=== PATIENT | female | born 1955 | race Hispanic/Latino ===

== ENCOUNTER 2016-11-13 09:00 | Inpatient (IN) | payer MEDICAID ==
--- NOTE | 2016-11-13 09:24 | ED PDOC ---
Arrival/HPI - General Chief Complaint: Syncope Time Seen by Provider: 11/13/16 09:23 Historian: Patient - History of Present Illness Narrative History of Present Illness (Text): 11/13/16 09:24 A 61 year old female, whose past medical history includes hemorrhagic stroke, presents to the emergency department complaining of a syncopal episode this morning. Patient reports she remembers walking to her room and then waking up on the floor. Patient unable to recall further details. Patient is currently complaining of a headache. Patient denies any dizziness, fever, nausea, vomiting , abdominal pain, chest pain, shortness of breath or any other complaints. PMD: Cardiello Time/Duration: Other (This morning) Quality: Other Context: Home Past Medical History - Provider Review Nursing Documentation Reviewed: Yes - Infectious Disease Hx of Infectious Diseases: None - Tetanus Immunization Tetanus Immunization: Unknown - Cardiac Hx Hypertension: Yes Hx Mitral Valve Prolapse: Yes - Pulmonary Hx Pneumonia: Yes - Neurological Hx Neurological Disorder: Yes (DIPLOPIA) Hx Dizziness: Yes Other/Comment: 10-13-16 CT SCAN SHOWED A 2.5 ACUTE HEMORRHAGE WITH EDEMA . - HEENT Hx HEENT Disorder: No - Renal Hx Kidney Stones: Yes (left kidney stone at 21 years old) - Endocrine/Metabolic Hx Endocrine Disorders: No - Hematological/Oncological Hx Blood Disorders: No - Integumentary Hx Dermatological Disorder: No - Musculoskeletal/Rheumatological Hx Falls: No - Gastrointestinal Hx Gastroesophageal Reflux: Yes - Genitourinary/Gynecological Hx Genitourinary Disorders: No - Psychiatric Hx Psychophysiologic Disorder: Yes Hx Depression: Yes Hx Substance Use: No - Surgical History Hx Cholecystectomy: Yes - Anesthesia Hx Anesthesia: Yes Hx Anesthesia Reactions: No Hx Malignant Hyperthermia: No - Suicidal Assessment Feels Threatened In Home Enviroment: No Family/Social History - Physician Review Nursing Documentation Reviewed: Yes Family/Social History: No Known Family HX Smoking Status: Never Smoked Hx Alcohol Use: Yes Hx Substance Use: No Hx Substance Use Treatment: No Allergies/Home Meds Allergies/Adverse Reactions: Allergies No Known Allergies Allergy (Verified 10/13/16 21:21) Home Medications: Home Meds Medication Instructions Recorded Confirmed Mirtazapine [Remeron] 30 mg PO BID 07/10/13 10/13/16 Simvastatin 40 mg PO HS 07/10/13 10/13/16 Clonazepam [Clonazepam] 0.5 mg PO BID 10/13/16 10/13/16 Metoprolol Succinate XL [Toprol XL] 100 mg PO DAILY 10/13/16 10/13/16 oxyCODONE [oxyCODONE Immediate 10 mg PO QID 10/13/16 10/13/16 Release Tab] oxyCODONE [oxyCONTIN Extended 10 mg PO BID 10/13/16 10/13/16 Release Tab] Physical Exam - Physical Exam Narrative Physical Exam (Text): - Review of Systems Constitutional: Normal. absent: Fatigue, Weight Change, Fevers Eyes: Normal ENT: Normal Respiratory: Normal absent: SOB, Cough, Sputum Cardiovascular: (+) Syncope absent: Chest pain, Palpitations Gastrointestinal: Normal absent: Abdominal pain, Diarrhea, Nausea, Vomiting Genitourinary: Normal. absent: Dysuria, Frequency, Hematuria Musculoskeletal: Normal. absent: Arthralgias, Back Pain, Neck Pain Skin: Normal Neurological: (+) Headache absent: Focal Weakness, Dizziness Endocrine: Normal Hemo/Lymphatic: Normal Psychiatric: Normal - Physical exam Patient appears age appropriate, speaking full sentences without difficulty Head atraumatic. No nasal bone deformity or tenderness, no facial or jaw pain/ swelling. No neck midline tenderness, thoracic and lumbar spine with no midline tenderness. Pt moving b/l upper and lower extremities without difficulty, 5/5 strength, with full active and passive ROM. Distal neurovasc fully intact. Abd soft/nt/ng, no hematomas, no peritoneal signs. Neg. pelvic rock. - Systems Exam Head: Present: Atraumatic, Normocephalic Pupils: Present: PERRL Extraocular Muscles: Present: EOMI Conjunctiva: Present: Normal Mouth: Present: Moist Mucous Membranes Neck: Present: Normal Range of Motion. No: MIDLINE TENDERNESS, Paraspinal Tenderness Respiratory/Chest: Present: Clear to Auscultation, Good Air Exchange. No: Respiratory Distress, Accessory Muscle Use, Tachypneic Cardiovascular: Present: Regular Rate and Rhythm, Normal S1, S2, Peripheral Pulses Present. No: Murmurs Abdomen: Present: Normal Bowel Sounds, No: Tenderness, Peritoneal Signs, Rebound, Guarding, Distention Back: Present: Normal Inspection. No: Midline Tenderness, Paraspinal Tenderness Upper Extremity: Present: Normal Inspection. No: Cyanosis, Edema Lower Extremity: Present: Normal Inspection. No: Edema Neurological: Present: GCS=15, Speech Normal, cranial nerves II through XII fully intact with no cerebellar abnormality, neuro-sensory fully intact. No focal neurological deficits. Skin: Present: Warm, Dry, Normal Color. No: Rashes Lymphatic: Present: OX3, NI, NC Psychiatric: Present: Alert, Oriented x 3, Normal Insight, Normal Concentration Vital Signs Reviewed: Yes Vital Signs Temp Pulse Resp BP Pulse Ox 11/13/16 11:01 65 18 128/59 L 99 11/13/16 09:00 97.8 F 61 17 130/55 L 99 Temperature: Afebrile Blood Pressure: Hypotensive Pulse: Regular Respiratory Rate: Normal Appearance: Positive for: Well-Appearing, Non-Toxic, Comfortable Pain Distress: None Mental Status: Positive for: Alert and Oriented X 3 Medical Decision Making ED Course and Treatment: 11/13/16 09:24 Impression: A 61 year old female with a syncopal episode. Patient notes a headache but denies any other complaints. Physical exam unremarkable. Plan: -- Head CT -- EKG -- Labs -- IV fluids -- Reassess and disposition Progress Notes: EKG shows sinus bradycardia at [address]-segment elevations, normal intervals. Interpreted by me. 11/13/16 10:[address] Andersen, asked to obs under his service pt aware of and agrees with plan Report Date : 11/13/2016 10:27:34 PROCEDURE: CT HEAD WITHOUT CONTRAST. Dictator : Gloria Cedillo IMPRESSION: Interval complete resolving of the parasagittal posterior right parietal occipital intraparenchymal hemorrhage. Residual hypodensity seen without evidence of mass effect or midline shift. Otherwise no significant interval change compared to the previous study. No evidence of new intracranial hemorrhage or new territorial infarct. - Lab Interpretations Lab Results: 11/13/16 09:44 11/13/16 09:44 Lab Results 11/13/16 09:44: WBC 4.5, RBC 4.49, Hgb 13.8, Hct 41.0, MCV 91.3, MCH 30.7, MCHC 33.7, RDW 13.7, Plt Count 279, MPV 9.2, Gran % 65.0, Lymph % (Auto) 25.2, Dixon % (Auto) 7.8 H, Eos % (Auto) 1.6, Baso % (Auto) 0.4, Gran # 2.91, Lymph # 1.1 L , Dixon # 0.4, Eos # 0.1, Baso # 0.02, PT 10.7, INR 0.99, APTT 25.3, Sodium 141, Potassium 3.9, Chloride 105, Carbon Dioxide 27, Anion Gap 13, BUN 16, Creatinine 1.0, Est GFR ( Amer) > 60, Est GFR (Non-Af Amer) 57, Random Glucose 109, Calcium 9.5, Total Bilirubin 0.6, AST 23, ALT 7, Alkaline Phosphatase 85, Lactate Dehydrogenase 347, Total Creatine Kinase 39, Troponin I < 0.01 D, Total Protein 7.1, Albumin 3.9, Globulin 3.2, Albumin/Globulin Ratio 1.2 I have reviewed the lab results: Yes - RAD Interpretation Radiology Orders: 11/13/16 09:29 HEAD W/O CONTRAST [CT] Stat - Medication Orders Current Medication Orders: Atorvastatin Calcium (Lipitor) 20 mg PO HS PAO Clonazepam (Klonopin) 0.5 mg PO BID PAO Metoprolol Succinate (Toprol Xl) 100 mg PO DAILY PAO Oxycodone HCl (Oxycodone Immediate Release Tab) 10 mg PO QID PAO Discontinued Medications Sodium Chloride (Sodium Chloride 0.9%) 1,000 mls @ 1,000 mls/hr IV .Q1H STA Stop: 11/13/16 10:29 Last Admin: 11/13/16 09:50 Dose: 1,000 MLS/HR eMAR Start Stop Document 11/13/16 09:50 EQ (Rec: 11/13/16 09:51 EQ [id number]) Intravenous Solution Start Date 11/13/16 Start Time 09:51 - Scribe Statement The provider has reviewed the documentation as recorded by the Thu Kelly Provider Scribe Attestation: All medical record entries made by the Scribe were at my direction and personally dictated by me. I have reviewed the chart and agree that the record accurately reflects my personal performance of the history, physical exam, medical decision making, and the department course for this patient. I have also personally directed, reviewed, and agree with the discharge instructions and disposition. Disposition/Present on Arrival - Present on Arrival Any Indicators Present on Arrival: No History of DVT/PE: No History of Uncontrolled Diabetes: No Urinary Catheter: No History of Decub. Ulcer: No History Surgical Site Infection Following: None - Disposition Have Diagnosis and Disposition been Completed?: Yes Diagnosis: Syncope and collapse Disposition: HOSPITALIZED Disposition Time: 10:22 Patient Plan: Observation Patient Problems: Current Active Problems Problem Status Diagnosed Syncope and collapse Acute Condition: STABLE
[2016-11-13] MEDS ORDERED: Sodium Chloride 0.9% 1,000 ML IV STA (09:30)
[2016-11-13 09:45] LABS: ADD MANUAL DIFF? NO
[2016-11-13 09:59] LABS: BASO # 0.02 K/mm3 (0.0-2.0); BASO % 0.4 % (0.0-3.0); EOS # 0.1 (0.0-0.7); EOS % 1.6 % (1.5-5.0); GRAN # 2.91 (1.4-6.5); LYMPH # 1.1 (1.2-3.4); LYMPH % 25.2 % (22.0-35.0); MEAN CELL VOLUME 91.3 fL (80.0-105.0); MEAN CORPUSCULAR HEMOGLOBIN 30.7 pg (25.0-35.0); MEAN CORPUSCULAR HGB CONC 33.7 g/dl (31.0-37.0); MEAN PLATELET VOLUME 9.2 fl (7.0-11.0); MONO # 0.4 (0.1-0.6); MONO % 7.8 % (1.0-6.0); PLATELET COUNT 279 10^3/uL (120.0-450.0); RED CELL DISTRIBUTION WIDTH 13.7 % (11.5-14.5); WHITE BLOOD COUNT 4.5 10^3/ul (4.5-11.0)
[2016-11-13 10:08] LABS: ALB/GLOB RATIO 1.2 (1.1-1.8); ALKALINE PHOSPHATASE 85 U/L (38-133); ALT/SGPT 7 U/L (7-56); AST/SGOT 23 U/L (15-39); BILIRUBIN,TOTAL 0.6 mg/dL (0.2-1.3); BLOOD UREA NITROGEN 16 mg/dL (7-21); CALCIUM 9.5 mg/dL (8.4-10.5); CARBON DIOXIDE 27 mmol/L (21-33); CHLORIDE 105 mmol/L (98-107); GFR AFRICAN-AMERICAN > 60; GLUCOSE,RANDOM 109 mg/dL (70-110); POTASSIUM 3.9 mmol/L (3.6-5.0); SODIUM 141 mmol/L (132-148); TOTAL PROTEIN 7.1 g/dL (5.8-8.3)
[2016-11-13 10:18] LABS: TROPONIN I < 0.01 ng/mL
--- NOTE | 2016-11-13 10:28 | CT ---
PROCEDURE: CT HEAD WITHOUT CONTRAST. HISTORY: RIVERO x2 weeks COMPARISON: Irina frederick is made to the previous study dated 11/04/2016 TECHNIQUE: Axial computed tomography images were obtained through the head/brain without intravenous contrast. Radiation dose: Total exam DLP = 757.14 mGy-cm. FINDINGS: HEMORRHAGE: Interval further resolving of the previously seen right parieto-occipital intraparenchymal hemorrhage. No evidence of new intracranial hemorrhage. BRAIN: Residual hypodensity at the site of previously seen intraparenchymal hemorrhage in the parasagittal right posterior parietal occipital lobe. No evidence of mass effect or midline shift. No atrophy or chronic microvascular ischemic changes. VENTRICLES: Unremarkable. No hydrocephalus. CALVARIUM: Unremarkable. PARANASAL SINUSES: Unremarkable as visualized. No significant inflammatory changes. MASTOID AIR CELLS: Unremarkable as visualized. No inflammatory changes. OTHER FINDINGS: None. IMPRESSION: Interval complete resolving of the parasagittal posterior right parietal occipital intraparenchymal hemorrhage. Residual hypodensity seen without evidence of mass effect or midline shift. Otherwise no significant interval change compared to the previous study. No evidence of new intracranial hemorrhage or new territorial infarct.
[2016-11-13 10:39] LABS: INR 0.99 (0.93-1.08); PARTIAL THROMBOPLASTIN TIME 25.3 Seconds (23.7-30.8)
--- NOTE | 2016-11-13 12:20 | HP ---
HISTORY OF PRESENT ILLNESS: A 61-year-old white female with a recent history of BASKET TURNER bleed of unknown origin. The patient had done well. She was discharged home. She had been doing physical therapy a nd had seen Dr. Sullivan of neurology as an outpatient. She recently had a CT which did not show any c hange in her recent bleed. The patient was getting ready to go to an appointment in the morning when she had a full syncopal episode at home without any aura. The patient denied any loss of urine, ora l cuts or lesions, biting of tongue or lips and states that the timeframe was within 5 minutes of reg aining consciousness. The patient had no history of head trauma in the past. She had been sleeping normally, had been eating normally the day before. She denies any fever, chills, nausea, vomiting, h eadache, etc. The patient has no history of seizure disorder in the past. The patient came to the E mergency Room after having a syncopal episode. REVIEW OF SYSTEMS: A 12-point review of systems is unremarkable for headache, fever, chills, nausea, vomiting. It is positive for syncope and anxiety. The patient denies any chest pain, shortness of breath, palpitations. Denies any cough, fever, chills, nausea, vomiting or diarrhea. Denies any kymberly rtness of breath. The patient has no history of DVT or PE in the past. The patient is a nonsmoker. No IV drug abuse. She does have a history of prescription pain medication for many, many years and also anxiety medication. FAMILY HISTORY: Unremarkable. PAST SURGICAL HISTORY: Unremarkable, noncontributory. PAST MEDICAL HISTORY: The patient does have a history of severe headaches in the past. PHYSICAL EXAMINATION: GENERAL: Well-developed, well-nourished white female in no apparent distress the following morning _ ____ in the ER. HEENT: Within normal limits. HEART: Regular sinus rhythm. No S3 or murmurs. CHEST: Clear to auscultation and percussion. ABDOMEN: Benign. EXTREMITIES: Without cyanosis, clubbing or edema. NEUROLOGIC: Grossly intact. The patient still has a mild loss of vision in the right eye, has some loss of peripheral vision, which is unchanged from her previous examination when she had her BASKET TURNER blee d. MEDICATIONS: Include clonazepam, simvastatin, metoprolol and oxycodone immediate release. ALLERGIES: The patient has no known allergies. IMPRESSION: A 61-year-old white female with recent history of central nervous system bleed, presenti with a syncopal episode. Rule out seizure, rule out dehydration, rule out electrolyte imbalance, rule out change in her bleed, rule out new onset of seizure. Jerald Andersen MD cc: [id number] TT: 11/13/2016 12:20:02 mn
[2016-11-13] MEDS ORDERED: Gadodiamide 287 MG/ML VIAL (15ML) IV ONE (12:51)
--- NOTE | 2016-11-13 12:59 | CARD ---
APPROVED REPORT EKG Measurement Heart [id number] <Conclusion> Sinus bradycardia with sinus arrhythmia Otherwise normal ECG
[2016-11-13] MEDS: oxyCODONE 10 mg Immediate Release Tab PO SCH ×3 (13:12→21:15)
--- NOTE | 2016-11-13 13:53 | MRI ---
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 TECHNIQUE: Multiplanar, multisequence MR images of the brain were obtained with and without intravenous contrast enhancement. FINDINGS: HEMORRHAGE: No MRI evidence of acute intraparenchymal hemorrhage. There is heterogeneous T1 and T2 hyperintense signal focus seen at the parasagittal right posterior parietal occipital lobe measures 3.2 in the longitudinal diameter 2.8 in the transverse diameter and 2.5 centimeter in the AP diameter suggestive of old intraparenchymal hemorrhage. There are linear hypointense T2 GRE images in this focus consistent with blood product deposition. DWI: No evidence of an acute or early subacute infarction. BRAIN PARENCHYMA: Interval resolving of the previously seen edema surrounding the intraparenchymal hemorrhage at the right posterior parietal occipital lobe since the previous exam. No atrophy or chronic microvascular ischemic changes. ENHANCEMENT: No abnormal intracranial enhancement. VENTRICLES: Unremarkable. No hydrocephalus. CRANIUM: Unremarkable. ORBITS: Grossly unremarkable. PARANASAL SINUSES/MASTOIDS: Clear VASCULAR SYSTEM: Skull base flow voids intact. OTHER FINDINGS: None . IMPRESSION: No MRI evidence of acute intracranial hemorrhage or acute pathology in the brain. Well defined focus of hyperintense heterogeneous T1 and T2 signal seen at the site of previously depicted intraparenchymal hemorrhage at the right posterior parietal occipital lobe suggestive of encephalomalacia. Linear hyperintense T2 GRE images seen in this focal suggestive of blood product deposition. Interval resolving of the previously seen surrounding edema at the posterior right occipital lobe. No evidence of significant mass effect or midline shift. The assessment for abnormal enhancement at the focus of abnormal signal on the right posterior parietal occipital lobe is limited due to high T1 signal in the precontrast images. Otherwise no evidence of enhancing mass lesion in the brain.
[2016-11-13 16:21] VITALS: BMI 22.7
[2016-11-13] MEDS ORDERED: Pneumococcal 23-Valent Vaccine IM ONE (16:21)
[2016-11-13] MEDS ORDERED: Influenza Vaccine 45 MCG/0.5 ml IM ONE (16:21)
--- NOTE | 2016-11-13 19:16 | CON ---
DATE: 11/13/2016 HISTORY OF PRESENT ILLNESS: This is a 61-year-old white female with past medical history of hyperten abhay and has a history of central nervous system bleed and the patient came to the hospital with the complaint of passing out spell. The patient has been doing physical therapy and had a syncopal episo de at home without any vomiting. No tongue bite, no urinary incontinence. Came to the hospital for further checkup. REVIEW OF SYSTEMS: A 10-point review of systems was negative except as noted above. PAST MEDICAL HISTORY: Stroke recently. PHYSICAL EXAMINATION: HEENT: Normocephalic, atraumatic. NECK: Supple. NEUROLOGIC: Alert, awake, and oriented x 3. No aphasia. Cranial nerves II through XII were tested. Pupils reactive. EOMs intact. Visual angeles full. No facial asymmetry. Tongue midline. Motor e xamination: Moves all the extremities equally. Tone normal. Deep tendon reflexes 1+. Both plantar s are downgoing. Sensory appears intact. Cerebellar gait deferred. IMPRESSION: Syncope, less likely seizure. No tongue bite. PLAN: We will do EEG and carotid Doppler. MRI did not show any new acute lesions. Kimo Sullivan MD cc: [id number] TT: 11/13/2016 19:16:00 Confirmation # [id number] Dictation # [id number] [place]
--- NOTE | 2016-11-13 20:03 | US ---
PROCEDURE: Bilateral carotid artery duplex ultrasound HISTORY: Carotid stenosis PHYSICIAN(S): Hever Velázquez MD. TECHNIQUE: Duplex sonography and color-flow Doppler were used to evaluate the carotid bifurcations and limited segments of the vertebral arteries bilaterally. FINDINGS: There is mild smooth heterogeneous plaque noted at the carotid bifurcations bilaterally. The peak systolic velocity in the proximal right internal carotid artery is 117 cm/sec. This corresponds to a 40-59 percent proximal right ICA stenosis. Normal systolic velocities are noted in the proximal right external carotid artery. There is antegrade flow in the right vertebral artery. The peak systolic velocity in the proximal left internal carotid artery is 119 cm/sec. This corresponds to a 40-59 percent proximal left ICA stenosis. Normal systolic velocities are noted in the proximal left external carotid artery. There is antegrade flow in the left vertebral artery. IMPRESSION: 1. Bilateral 40-59 percent proximal ICA stenoses. 2. Antegrade flow in both vertebral arteries.
[2016-11-13] MEDS ORDERED: Metoprolol Succinate 100 mg XL Tab PO SCH (22:00)
[2016-11-14] MEDS: Pantoprazole 40 mg EC Tab PO SCH (06:25)
[2016-11-14] MEDS: oxyCODONE 10 mg Immediate Release Tab PO PRN ×3 (08:36→22:28)
[2016-11-14] MEDS ORDERED: Metoprolol Succinate 100 mg XL Tab PO SCH (10:00)
--- NOTE | 2016-11-14 11:05 | PN ---
DATE: 11/14/2016 A 61-year-old white female admitted to the hospital after a syncopal episode. The patient was seen i n consultation by Dr. Sullivan. The patient had an MRI and CT of the head which showed no change in th e recent intracranial bleed. The patient had a carotid Doppler done which showed about less than 50% blockage bilaterally. The patient also was slightly bradycardic last night with a heart rate into t he 40s. She is on metoprolol which will be stopped and she will be switched to Coreg. She will also have a Holter monitor placed. She is afebrile. Vital signs are stable. She had no further episode s and no history of seizure disorder. The patient will an EEG today. Physical examination is unchanged. The patient continues to have a right eye visual deficit from her recent intracranial bleed. IMPRESSION: Syncopal episode. Rule out arrhythmia. Rule out seizure. 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 Jerald Andersen MD cc: [id number] TT: 11/14/2016 11:04:26 Confirmation # [id number] Dictation # [id number] herbert
--- NOTE | 2016-11-14 17:49 | PN ---
DATE: 11/14/2016 CHIEF COMPLAINT: Follow up status post syncopal event. SUBJECTIVE: The patient seen and examined at bedside. The patient is doing well. No further syncop al events. She had an episode of bradycardia overnight in the 40s of her heart rate. Blood pressure medications have been adjusted by cardiology. Her MRI of the brain showed no evidence of any acute intracranial pathology. She just has a right posterior parietooccipital lobe encephalomalacia from h er prior intracranial hemorrhage which was in 09/2016. No seizure-like episodes. EEG shows mild hunter ateral cerebral dysfunction which is consistent with her MRI. No evidence of any epileptiform activi ty. She is on Keppra 500 mg p.o. b.i.d. for seizure prophylaxis. No acute events overnight. She is on Klonopin for anxiety. PAST MEDICAL HISTORY: History of mitral valve prolapse, chronic back pain, peptic ulcer disease, rec ent right posterior parietooccipital lobe hemorrhage in 09/2016 from uncontrolled hypertension. REVIEW OF SYSTEMS: A 14-point review of systems is negative except the HPI. PAST SURGICAL HISTORY: Cholecystectomy. SOCIAL HISTORY: No illicit drug use or smoking or ETOH abuse, was a former smoker. ALLERGIES: No known drug allergies. CURRENT MEDICATIONS: Reviewed via nurse's reconciliation sheet. PHYSICAL EXAMINATION: VITAL SIGNS: Temperature of 97.4, pulse rate of 52, blood pressure 117/65, respiratory rate of 19, o xygen saturation 95% via room air. GENERAL: The patient is sitting up in bed in no acute distress. HEENT: Atraumatic, normocephalic. PERRLA. Extraocular muscles intact. NECK: Supple, no JVD, no adenopathy noted. LUNGS: Clear to auscultation. No adventitious sounds. HEART: S1, S2. Normal rate and rhythm. No murmurs, rubs, or gallops. ABDOMEN: Soft, nontender, nondistended. Bowel sounds are present. EXTREMITIES: No clubbing, no cyanosis. Peripheral pulses 2+ felt bilaterally. NEUROLOGIC: The patient is alert, oriented to person, place, month and year. Speech is fluent witho ut any errors. Cranial nerves II-XII are intact. Has some right eye limited movement due to double vision which is residual of her hemorrhage. MOTOR: Normal tone, normal bulk of muscle. No pronator drift seen. Strength is 5/5 in both upper a nd lower extremities. SENSORY: Light touch, pinprick, proprioception, vibration intact. DTRs 2+ throughout. COORDINATION: [id number], intact. GAIT: Deferred for now. LABORATORIES: Sodium is 141, potassium 2.9, chloride 105, carbon dioxide 27, BUN of 16, creatinine 1 , random glucose of 109. ASSESSMENT AND PLAN: This is a 61-year-old woman with past medical history of mitral valve prolapse, chronic back pain, on chronic opiates; peptic ulcer disease, history of right parietooccipital hemor rhage and some left medial parietal lobe and posterior left frontal lobe hemorrhage which was seen on the MRI which is old in 09/2016 secondary to uncontrolled hypertension at that time, who presented wi th a syncopal event. Her syncopal event is less likely a seizure. EEG did not show any epileptiform activity, just mild bilateral cerebral dysfunction. She was bradycardiac which could have caused po ssible transient vasovagal component which led to syncopal event superimposed on underlying anxiety d isorder. At this time, recommend: 1. Keep her blood pressure between 120-130 mmHg. 2. Monitor her heart rate since she becomes bradycardiac. Adjust her blood pressure medications. 3. Continue with Keppra 500 mg p.o. b.i.d. 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 4. Avoid overuse of opiates which can lower seizure threshold and continue with current present medi r[place] management. No further neurological workup needed up at this time. We will sign off. Kp Sullivan MD cc: [phone] TT: 11/14/2016 17:48:36 Confirmation # [id number] Dictation # [id number] tn
[2016-11-15] MEDS: Pantoprazole 40 mg EC Tab PO SCH (05:51)
[2016-11-15] MEDS: oxyCODONE 10 mg Immediate Release Tab PO PRN ×3 (05:51→20:55)
--- NOTE | 2016-11-15 09:21 | PN ---
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 Admitted to the hospital with a syncopal episode. EEG showed bilateral slowing, but no evidence of seizure disorder. The patient has been bradycardic. We have switched from metoprolo l to Coreg to decrease the chance of bradycardia. She still has some bradycardia in the middle of th e night. She is on a Holter monitor. She is afebrile. Vital signs are stable. REVIEW OF SYSTEMS: A 12-point is unremarkable. The patient will be discharged after her Holter on tapering doses of beta nae and low dose of opi ates. Jerald Andersen MD cc: [id number] TT: 11/15/2016 09:21:08 Confirmation # [id number] Dictation # [id number] en
--- NOTE | 2016-11-15 14:52 | CON ---
DATE: 11/15/2016 The patient in room 362, bed 2. REASON FOR CONSULTATION: Bradycardia, sinus pause, history of syncope. HISTORY OF PRESENT ILLNESS: A 61-year-old female who was admitted in 09/2016 with a history of centra l nervous system bleed. The patient since then has been doing well. Denies any chest pain, shortnes s of breath, or palpitation. The patient on the day of admission had again a syncopal episode withou t any aura. There is no history of incontinence of urine or tongue bite. The patient found herself on the floor. There is no history of chest pain, no palpitations associated with this episode. The patient in the past was told to have mitral valve prolapse and she used to get palpitations, so she h as been put on Lopressor in the past and recently she was also given amlodipine for keeping the blood pressure in the normal range. The patient on telemetry found to have bradycardia. The patient was on Lopressor and amlodipine and the patient also has sinus pause of 2.3 seconds. The patient denies any symptoms at present. There is no history of chest pain or shortness of breath or palpitation. T he patient had echocardiogram on 10/15/2016, which showed left ventricle normal size, normal left vent ricular wall thickness, normal left ventricle systolic function. Mitral valve did not show any prola pse. Trace mitral regurgitation was seen and trace tricuspid regurgitation was seen. LV ejection fr action was close to 74%. The patient also known to have a headache for many years and also known to have sciatica and back pain for which she takes OxyContin. 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 The patient also h ad cholecystectomy and surgery for torn meniscus. PERSONAL HISTORY: Denies smoking, denies drinking. ALLERGIES: The patient does not have any allergies. MEDICATIONS: At home, patient was on Toprol-XL 100 mg daily, Norvasc 10 mg daily and she also takes OxyContin for pain. FAMILY HISTORY: Mother and father both had coronary artery disease. REVIEW OF SYSTEMS: All the systems were reviewed, positives mentioned in the history, others were ne gative. PHYSICAL EXAMINATION: VITAL SIGNS: Blood pressure 120/80, pulse 66, temperature 97.6. HEENT: Head is normocephalic. Eyes: Pupils normal. Conjunctivae normal. Nose and throat normal. NECK: JVP low. Carotids equal. THORAX: AP diameter normal. LUNGS: Clear. CARDIOVASCULAR: S1, S2. ABDOMEN: Soft, nontender, no organomegaly. Bowel sounds normal. EXTREMITIES: No clubbing, no cyanosis. LABORATORY DATA: Shows WBC 4.5, hemoglobin 13.8, hematocrit 41.0, platelet 279. Sodium 141, potassi um 3.9, BUN 16, creatinine 1.0. Random glucose 109. AST normal, ALT normal. Troponin less than 0.01 , total protein 7.1, albumin 3.9. EKG showed sinus bradycardia at 56 per minute and telemetry monito r showed heart rate going down to 34 and there was also a pause of 2.3 seconds. Carotid ultrasound sh owed 40%-59% bilateral proximal internal carotid stenosis. DIAGNOSES: Syncope, probably related to bradycardia, which is probably related to beta nae thera py, Lopressor, recent central nervous system bleed, history of palpitations, history of mitral valve prolapse, history of headache, history of back pain and sciatica. PLAN: The patient's TSH previously was normal. Now, the Lopressor has been stopped and patient has been started on Coreg 6.25 b.i.d., amlodipine 10 mg p.o. daily, atorvastatin 20 mg p.o. daily, Keppra 500 b.i.d., Protonix 40 daily, oxycodone p.r.n. for pain. Today is the first day of starting of Cor eg, so we will monitor the patient and monitor for any arrhythmia including bradycardia and we will a djust the dose if needed. When patient goes home, we will also do a Holter monitor as an outpatient to monitor the heart rate. In a few months, when patient is stabilized, will suggest to do IV Lexisc an stress test for a complete workup of cardiac point of view to rule out any ischemia or coronary ar dillan disease. In the meantime, the patient does not have any chest pain, so we will continue medical therapy and we will follow with you. Monisha Wilson MD cc: [id number] TT: 11/15/2016 14:51:41 Confirmation # [id number] Dictation # [id number] rn
[2016-11-15 18:52] VITALS: RESP 20
[2016-11-16] MEDS: Pantoprazole 40 mg EC Tab PO SCH (05:44)
[2016-11-16] MEDS: oxyCODONE 10 mg Immediate Release Tab PO PRN ×2 (06:09→11:18)
[2016-11-16 08:02] VITALS: O2SAT 96
--- NOTE | 2016-11-16 13:02 | DS ---
A 61-year-old white female seen today at [facility] being discharged today on 11/15/16. 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 The patient was admitted to the hospital after a full syncopal episode. The patient was seen in consultation by jonathan Boyce ad an EEG done. There was no evidence of seizures. There was bilateral slowing. She also was found to be bradycardic in the hospital with heart rates down in the 40s. She was switched from metoprolo l to Coreg and heart rate is now up to 56, blood pressure is 118/70. She has a long history of hyper tension and chronic headaches and pain. She is on chronic opiate medication, but we are trying to ta per these because of the risk of increasing her seizure activity. The patient had a Holter monitor w hich is not read yet. She also was seen in consultation by Dr. Wilson for bradycardia. 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 The patient will be discharged home in i mproved condition. FINAL DISCHARGE DIAGNOSES: Syncope. Bradyarrhythmia, history of central nervous system bleed and ch ronic headaches. Jerald Andersen MD cc: [id number] TT: 11/16/2016 13:01:28 wa
--- NOTE | 2016-11-16 13:54 | PN ---
DATE: 11/16/2016 The patient is in room 360, bed 2. REASON FOR CONSULTATION: Bradycardia, sinus pauses, history of syncope. HISTORY OF PRESENT ILLNESS: The patient is a 61-year-old female who was admitted on in 09/2016 with h istory of central nervous system bleed and patient was told a long time ago that she has mitral valve prolapse and she was getting palpitations, so she was on long-acting Lopressor 100 mg a day. The pa allant now admitted with a syncopal episode and was found to have sinus bradycardia with sinus pause o f 2.3 seconds. The patient denies any chest pain, palpitation, nausea, vomiting associated with this episode. The patient's Lopressor was stopped and patient was started on Coreg 6.25 b.i.d. yesterday . The patient's heart rate this morning for a short time went into 39. The patient was asymptomatic . PHYSICAL EXAMINATION: VITAL SIGNS: Blood pressure 144/74, earlier blood pressure was 118/70, respirations 20, pulse 61, te mperature 97.8. HEAD: Normocephalic. EYES: Pupils normal. Conjunctivae normal. NOSE AND THROAT: Normal. NECK: JVP low. Carotid equal. THORAX: AP diameter normal. LUNGS: Clear. CARDIOVASCULAR: S1, S2. ABDOMEN: Soft, no tenderness, no organomegaly. EXTREMITIES: No clubbing, no cyanosis. LABORATORY DATA: Done on 11/13 and they were reported in our consult of 11/15/2016. The patient had an echo on 10/05/2016, which did not show any mitral valve prolapse. LV ejection frac tion was 74%, trace mitral regurg and trace tricuspid regurg was seen. The patient known to have a headache and sciatica and back pain, for which she takes OxyContin. DIAGNOSES: Syncope, probably related to bradycardia, which is probably related to beta nae thera py with Lopressor and recent central nervous system bleed, history of palpitation, history of mitral valve prolapse in the past, history of headache, back pain and sciatica. PLAN: We are going to stop Coreg. The patient was asymptomatic with heart rate of 39 this morning, a short episode, and patient insists on going home today, so we will stop the Coreg and we will lorena nue amlodipine 10 mg daily, atorvastatin 20 mg daily, Keppra 500 b.i.d., Protonix 40 daily, oxycodone p.r.n. for pain and we will put a Holter monitor tomorrow as outpatient and monitor her heart rate a nd we will make further recommendations as per basis of any finding on the Holter monitor and we will follow with you. Case discussed with the primary physician, Dr. Andersen, and had a detailed discu ssion with the patient. She understands and she will follow with the Holter as outpatient. Monisha Wilson MD cc: [id number] TT: 11/16/2016 13:53:58 Confirmation # [id number] Dictation # [id number] en
[2016-11-16] MEDS ORDERED: Influenza Vaccine 45 MCG/0.5 ml IM ONE (14:49)
[2016-11-16 16:29] VITALS: BP 135/79; PULSE 76; TEMP 97.6
--- NOTE | 2016-11-17 08:01 | EEG ---
DATE: 11/13/2016 HISTORY: Syncope. PAST MEDICAL HISTORY: Headache, head trauma and bleed. MEDICATIONS: Clonazepam, simvastatin, metoprolol, oxycodone. DESCRIPTION: Background activity of this tracing was composed of 9-10 cycles per second alpha-like a ctivity, small amount of beta activity 16-20 cycles per second was noted in the tracing, and theta ac tivity of 5-7 cycles per second was noted in the tracing. Drowsiness was composed of mixed beta and theta activity. Photic stimulation does not change the record. No paroxysmal activity was seen in t he record. IMPRESSION: Normal awake, drowsy electroencephalography. Kimo Sullivan MD cc: [id number] TT: 11/16/2016 16:25:02 Confirmation # [id number] Dictation # [id number] rosa maria
== END 2016-11-16 16:50 | disposition home or self-care (01) | DRG 138 ==
LOC: ED 09:00 → ERH 10:23 → 3RNO 11:22 → OBSVTOIN 11-15 14:43
PROVIDERS: ADMIT Internal Medicine; ATTEND Internal Medicine
PROC: 3E0234Z Introduction of Serum, Toxoid and Vaccine into Muscle, Percutaneous Approach (ICD-10-PCS; principal; 2016-11-16)
DX: R00.1 Bradycardia, unspecified (principal); R56.9 Unspecified convulsions; I08.1 Rheumatic disorders of both mitral and tricuspid valves; T44.7X5A Adverse effect of beta-adrenoreceptor antagonists, initial encounter; R55 Syncope and collapse; I10 Essential (primary) hypertension; F41.9 Anxiety disorder, unspecified; K21.9 Gastro-esophageal reflux disease without esophagitis; M54.30 Sciatica, unspecified side; Z79.891 Long term (current) use of opiate analgesic; Z79.899 Other long term (current) drug therapy; Z82.49 Family history of ischemic heart disease and other diseases of the circulatory system; Z87.01 Personal history of pneumonia (recurrent); Z87.11 Personal history of peptic ulcer disease; Z87.442 Personal history of urinary calculi; Z90.49 Acquired absence of other specified parts of digestive tract; R40.2412 Glasgow coma scale score 13-15, at arrival to emergency department; R51 Headache; I69.298 Other sequelae of other nontraumatic intracranial hemorrhage; H53.9 Unspecified visual disturbance; I34.1 Nonrheumatic mitral (valve) prolapse; Z23 Encounter for immunization

== ENCOUNTER 2017-01-16 15:42 | Emergency (ER) | payer MEDICAID ==
[2017-01-16 15:55] VITALS: BMI 23.2
[2017-01-16] MEDS ORDERED: Sodium Chloride 0.9% 1,000 ML IV STA (16:18)
[2017-01-16] MEDS ORDERED: Oxycodone/Acetaminophen 5/325 mg Tab PO STA (16:18)
[2017-01-16 16:35] VITALS: BP 138/79
--- NOTE | 2017-01-16 17:12 | ED PDOC ---
Arrival/HPI - General Chief Complaint: Headache Time Seen by Provider: 01/16/17 15:51 Historian: Patient - History of Present Illness Narrative History of Present Illness (Text): 01/16/17 17:10 This is a 61yo female with PMhx of hypertension, migraine headache and subdural bleed, present with complaint of severe headache associated with nausea, vomiting and photophobia. She notes history of headache everyday of her life. states this is different because she had an "undescribable sensation on her left sided neck" earlier today. Notes malaise for the past one week. States she is currently on unknown abx for UTI. Luis Fernando dysuria, frequency, hematuria, chest pain, SOB, nuchal ridgity, fever, chills, abdominal pain, focal weakness, dizziness, any other complaint. Past Medical History - Provider Review Nursing Documentation Reviewed: Yes - Infectious Disease Hx of Infectious Diseases: None - Tetanus Immunization Tetanus Immunization: Unknown - Cardiac Hx Cardiac Disorders: Yes (MVP) Hx Hypertension: Yes - Pulmonary Hx Respiratory Disorders: Yes (SMOKES CIGARETTES 10/D H/O) Hx Pneumonia: Yes (HAD DOUBLE PNEUMONIA H/O) - Neurological Hx Neurological Disorder: Yes (DIPLOPIA) Hx Dizziness: Yes (SYNCOPE) Other/Comment: 10-13-16 CT SCAN SHOWED A 2.5 ACUTE HEMORRHAGE WITH EDEMA . - HEENT Hx HEENT Disorder: Yes (WEARS RX GLASSES,DIPLOPIA) - Renal Hx Renal Disorder: Yes Hx Kidney Stones: Yes (left kidney stone at 21 years old.PASSES STONES) Hx Pyelonephritis: Yes - Endocrine/Metabolic Hx Endocrine Disorders: No - Hematological/Oncological Hx Blood Disorders: No - Integumentary Hx Dermatological Disorder: No - Musculoskeletal/Rheumatological Hx Musculoskeletal Disorders: Yes (RIGHT TORN MENISCUS) Hx Falls: No - Gastrointestinal Hx Gastrointestinal Disorders: Yes Hx Gall Bladder Disease: Yes (CHOLECYSTECTOMY) Hx Gastroesophageal Reflux: Yes - Genitourinary/Gynecological Hx Genitourinary Disorders: No - Psychiatric Hx Psychophysiologic Disorder: Yes Hx Depression: Yes Hx Substance Use: No - Surgical History Hx Cholecystectomy: Yes - Anesthesia Hx Anesthesia: Yes Hx Anesthesia Reactions: No Hx Malignant Hyperthermia: No - Suicidal Assessment Feels Threatened In Home Enviroment: No Family/Social History - Physician Review Nursing Documentation Reviewed: Yes Family/Social History: Unknown Family HX Smoking Status: Former Smoker Hx Alcohol Use: No Hx Substance Use: No Hx Substance Use Treatment: No Allergies/Home Meds Allergies/Adverse Reactions: Allergies No Known Allergies Allergy (Verified 01/16/17 15:55) Home Medications: Home Meds Medication Instructions Recorded Confirmed Mirtazapine [Remeron] 30 mg PO HS 07/10/13 11/13/16 Metoprolol Succinate XL [Toprol XL] 100 mg PO HS 10/13/16 11/13/16 oxyCODONE [oxyCODONE Immediate 10 mg PO QID 10/13/16 11/13/16 Release Tab] Amlodipine Bes/Olmesartan Med 10 mg PO DAILY 11/13/16 11/13/16 [Amlodipine-Olmesartan 5-20 mg] Levetiracetam [Roweepra] 500 mg PO BID 11/13/16 11/13/16 Pantoprazole Sodium [Protonix] 40 mg PO DAILY 11/13/16 11/13/16 Review of Systems - Physician Review All systems were reviewed & negative as marked: Yes - Review of Systems Constitutional: Normal Eyes: Photophobia ENT: Normal Respiratory: Normal Cardiovascular: Normal Gastrointestinal: Nausea, Vomiting. absent: Abdominal Pain, Constipation, Diarrhea, Hematochezia, Hematemesis Genitourinary Female: Normal Musculoskeletal: Normal Skin: Normal Neurological: Headache. absent: Dizziness, Focal Weakness Endocrine: Normal Hemo/Lymphatic: Normal Psychiatric: Normal Physical Exam Vital Signs Reviewed: Yes Vital Signs Temp Pulse Resp BP Pulse Ox 01/16/17 20:10 80 16 98 01/16/17 20:00 98.0 F 80 16 98 01/16/17 16:35 75 18 138/79 97 01/16/17 15:55 16 01/16/17 15:49 79 18 142/81 97 Temperature: Afebrile Blood Pressure: Normal Pulse: Regular Respiratory Rate: Normal Appearance: Positive for: Well-Appearing, Non-Toxic, Comfortable Pain Distress: None Mental Status: Positive for: Alert and Oriented X 3 - Systems Exam Head: Present: Atraumatic, Normocephalic Pupils: Present: PERRL Extroacular Muscles: Present: EOMI Conjunctiva: Present: Normal Mouth: Present: Moist Mucous Membranes Neck: Present: Normal Range of Motion Respiratory/Chest: Present: Clear to Auscultation, Good Air Exchange. No: Respiratory Distress, Accessory Muscle Use Cardiovascular: Present: Regular Rate and Rhythm, Normal S1, S2. No: Murmurs Abdomen: Present: Normal Bowel Sounds. No: Tenderness, Distention, Peritoneal Signs Back: Present: Normal Inspection Upper Extremity: Present: Normal Inspection. No: Cyanosis, Edema Lower Extremity: Present: Normal Inspection. No: Edema Neurological: Present: GCS=15, CN II-XII Intact, Speech Normal, Motor Func Grossly Intact, Normal Sensory Function, Normal Cerebellar Funct, Norm Deep Tendon Reflexes, Gait Normal, Memory Normal Skin: Present: Warm, Dry, Normal Color. No: Rashes Psychiatric: Present: Alert, Oriented x 3, Normal Insight, Normal Concentration Medical Decision Making ED Course and Treatment: 01/17/17 00:27 Pt was neurological intact in ED. she stated her headache improved in ED with medication. Lab was unremarkable. 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 Head CT was negative for any acute derangement. Result was DW the pt. she noted that she was given Fioricet by her Neurologist for the headache and feel is not working. She was advised to f/u with her Neurologist and DC possible change in her medication. - Lab Interpretations Lab Results: 01/16/17 17:19 01/16/17 17:19 Lab Results 01/16/17 20:16: Urine Color Yellow, Urine Appearance Slight-cloudy, Urine pH 7.0 , Ur Specific [place] 1.010, Urine Protein Negative, Urine Glucose (UA) Negative , Urine Ketones Negative, Urine Blood Trace-intact H, Urine Nitrate Negative, Urine Bilirubin Negative, Urine Urobilinogen 0.2, Ur Leukocyte Esterase Small H , Urine RBC 1 - 3, Urine WBC 2 - 5, Ur Epithelial Cells 1 - 3 01/16/17 17:19: Sodium 140, Potassium 4.7, Chloride 102, Carbon Dioxide 30, Anion Gap 13, BUN 12, Creatinine 1.0, Est GFR ( Amer) > 60, Est GFR (Non- Af Amer) 57, Random Glucose 121 H, Calcium 10.0, Total Bilirubin 0.5, AST 27, ALT 21, Alkaline Phosphatase 127, Lactate Dehydrogenase 387, Total Creatine Kinase 47, Troponin I < 0.01, Total Protein 8.0, Albumin 4.5, Globulin 3.5, Albumin/Globulin Ratio 1.3 01/16/17 17:19: PT 10.4, INR 0.96, APTT 26.1 01/16/17 17:19: WBC 8.8 D, RBC 4.20, Hgb 12.9, Hct 37.8, MCV 90.0, MCH 30.7, MCHC 34.1, RDW 14.3, Plt Count 271, MPV 9.3, Gran % 73.1 H, Lymph % (Auto) 17.2 L, [place] % (Auto) 8.8 H, Eos % (Auto) 0.7 L, Baso % (Auto) 0.2, Gran # 6.41, Lymph # 1.5, [place] # 0.8 H, Eos # 0.1, Baso # 0.02 - RAD Interpretation Radiology Orders: 01/16/17 17:16 HEAD W/O CONTRAST [CT] Stat - Medication Orders Current Medication Orders: Discontinued Medications Sodium Chloride (Sodium Chloride 0.9%) 1,000 mls @ 999 mls/hr IV .Q1H1M STA Stop: 01/16/17 17:18 Last Admin: 01/16/17 17:22 Dose: 999 mls/hr Metoclopramide HCl (Reglan) 10 mg IVP STAT STA Stop: 01/16/17 16:19 Last Admin: 01/16/17 17:21 Dose: 10 mg Oxycodone/Acetaminophen (Percocet 5/325 Mg Tab) 1 tab PO STAT STA Stop: 01/16/17 16:19 Last Admin: 01/16/17 17:20 Dose: 1 tab Tramadol HCl (Ultram) 50 mg PO STAT STA Stop: 01/16/17 21:15 Disposition/Present on Arrival - Present on Arrival Any Indicators Present on Arrival: No History of DVT/PE: No History of Uncontrolled Diabetes: No Urinary Catheter: No History of Decub. Ulcer: No History Surgical Site Infection Following: None - Disposition Have Diagnosis and Disposition been Completed?: Yes Diagnosis: Headache Disposition: HOME/ ROUTINE Disposition Time: 21:10 Patient Plan: Discharge Condition: STABLE Discharge Instructions (ExitCare): Acute Headache (ED) Additional Instructions: Follow up with a Neurologist Return to ED for any new or worsening symptoms Prescriptions: traMADol [Ultram] 50 mg PO TID #8 tab Referrals: Jerald Andersen MD [Primary Care Provider] - Follow up with primary
[2017-01-16 17:25] LABS: ADD MANUAL DIFF? NO
[2017-01-16 17:46] LABS: ALB/GLOB RATIO 1.3 (1.1-1.8); ALKALINE PHOSPHATASE 127 U/L (38-133); ALT/SGPT 21 U/L (7-56); AST/SGOT 27 U/L (15-39); BILIRUBIN,TOTAL 0.5 mg/dL (0.2-1.3); BLOOD UREA NITROGEN 12 mg/dL (7-21); CARBON DIOXIDE 30 mmol/L (21-33); CHLORIDE 102 mmol/L (98-107); GFR AFRICAN-AMERICAN > 60; GLUCOSE,RANDOM 121 mg/dL (70-110); POTASSIUM 4.7 mmol/L (3.6-5.0); SODIUM 140 mmol/L (132-148)
[2017-01-16 17:48] LABS: INR 0.96 (0.93-1.08); PARTIAL THROMBOPLASTIN TIME 26.1 Seconds (23.7-30.8); WHITE BLOOD COUNT 8.8 10^3/ul (4.5-11.0)
[2017-01-16 17:49] LABS: BASO % 0.2 % (0.0-3.0); EOS % 0.7 % (1.5-5.0); GRAN # 6.41 (1.4-6.5); GRAN % 73.1 % (50.0-68.0); HEMATOCRIT 37.8 % (36.0-48.0); LYMPH # 1.5 (1.2-3.4); LYMPH % 17.2 % (22.0-35.0); MEAN CORPUSCULAR HEMOGLOBIN 30.7 pg (25.0-35.0); MEAN CORPUSCULAR HGB CONC 34.1 g/dl (31.0-37.0); MEAN PLATELET VOLUME 9.3 fl (7.0-11.0); MONO # 0.8 (0.1-0.6); MONO % 8.8 % (1.0-6.0); PLATELET COUNT 271 10^3/uL (120.0-450.0); RED CELL DISTRIBUTION WIDTH 14.3 % (11.5-14.5)
[2017-01-16 17:50] LABS: BASO # 0.02 K/mm3 (0.0-2.0); EOS # 0.1 (0.0-0.7)
[2017-01-16 17:56] LABS: TROPONIN I < 0.01 ng/mL
--- NOTE | 2017-01-16 19:44 | CT ---
EXAM: CT Head Without Intravenous Contrast CLINICAL HISTORY: 61 years old, female; Pain; Headache; Headache not specified; Patient HX: HX: Bleed 09/2106 TECHNIQUE: Axial computed tomography images of the head/brain without intravenous contrast. This CT exam was performed using one or more of the following dose reduction techniques: automated exposure control, adjustment of the mA and/or kV according to patient size, and/or use of iterative reconstruction technique. EXAM DATE/TIME: 01/16/2017 5:16 PM COMPARISON: Prior head CT of 10/13/2016 FINDINGS: BRAIN: A 2.7 cm focal area of cystic encephalomalacia is seen in the right occipital lobe. This has developed at the site of prior hemorrhage. Stable punctate calcification in the right temporal lobe. Diffuse, age-related cortical atrophy and ventriculomegaly. No significant acute abnormality identified. No evidence of new or acute hemorrhage within the brain. No acute extra-axial fluid collections visualized. No evidence of significant mass effect within the brain. VENTRICLES: See above. BONES/JOINTS: No acute fractures or other acute bony abnormality noted. SOFT TISSUES: No acute abnormality of the visualized soft tissues is seen. SINUSES: Visualized paranasal sinuses appear clear. MASTOID AIR CELLS: Mastoid air cells appear clear. IMPRESSION: - No acute findings seen within the brain. - Small area of encephalomalacia in the right occipital lobe, located at the site of a prior hemorrhage. - See above for remaining findings.
[2017-01-16 20:51] LABS: URINE BILIRUBIN NEGATIVE (NEGATIVE); URINE BLOOD TRACE-INTACT (NEGATIVE); URINE GLUCOSE (UA) NEGATIVE (NEGATIVE); URINE KETONE NEGATIVE (NEGATIVE); URINE LEUKOCYTE ESTERASE SMALL Leu/uL (NEGATIVE); URINE PROTEIN NEGATIVE mg/dL (<30 mg/dL); URINE UROBILINOGEN 0.2 E.U./dL (<1 E.U./dL)
[2017-01-16 20:55] LABS: URINE APPEARANCE SLIGHT-CLOUDY (CLEAR); URINE COLOR YELLOW (YELLOW)
[2017-01-16 23:37] VITALS: PULSE 80; RESP 16; TEMP 98; O2SAT 98
== END 2017-01-16 20:20 | disposition home or self-care (01) ==
LOC: ED 15:42
DX: R51 Headache (principal); I10 Essential (primary) hypertension; I34.1 Nonrheumatic mitral (valve) prolapse; I62.01 Nontraumatic acute subdural hemorrhage; Z87.891 Personal history of nicotine dependence
CPT/HCPCS: 70450; 80053; 81001; 82550; 83615; 84484; 85025; 85610; 85730; 87086; 96374; 99285; J2765; J7040

== ENCOUNTER 2017-05-10 06:38 | Observation (INO) | payer MEDICAID ==
--- NOTE | 2017-05-10 07:36 | ED PDOC ---
Arrival/HPI - General Chief Complaint: Syncope Time Seen by Provider: 05/10/17 07:18 Historian: Patient, Other (roommate) - History of Present Illness Narrative History of Present Illness (Text): 05/10/17 07:34 A 62 year old female, whose past medical history includes a hemorrhagic stroke, hypertension, scoliosis, arthritis, and cholecystectomy, presents to the emergency department accompanied by roommate for potentially passing out earlier this morning around 03:00. The patient reports that yesterday around 13: 00, she began to feel out of it and lightheaded, the symptoms resolved on their own. She woke up this morning at 03:00 with nausea and went to the bathroom to vomit and before vomiting she felt out of it and recalls coming back to consciousness while kneeling on the floor. The patient states she is not sure if she did syncope, but once she regained consciousness she vomited once with no blood. She denies any chest pain, shortness of breath, loss of continence, fever, abdominal pain, or any other complaints at this time. Time/Duration: 4-6 hours Symptom Onset: Sudden Symptom Course: Improving Activities at Onset: Rest Context: Home Past Medical History - Provider Review Nursing Documentation Reviewed: Yes - Infectious Disease Hx of Infectious Diseases: None - Tetanus Immunization Tetanus Immunization: Unknown - Cardiac Hx Hypertension: Yes - Pulmonary Hx Respiratory Disorders: Yes (SMOKES CIGARETTES 10/D H/O) Hx Pneumonia: Yes (HAD DOUBLE PNEUMONIA H/O) - Neurological Hx Seizures: Yes - HEENT Hx HEENT Disorder: Yes (WEARS RX GLASSES,DIPLOPIA) - Renal Hx Renal Disorder: Yes Hx Kidney Stones: Yes (left kidney stone at 21 years old.PASSES STONES) Hx Pyelonephritis: Yes - Endocrine/Metabolic Hx Endocrine Disorders: No - Hematological/Oncological Hx Blood Disorders: No - Integumentary Hx Dermatological Disorder: No - Musculoskeletal/Rheumatological Hx Musculoskeletal Disorders: Yes (RIGHT TORN MENISCUS) Hx Falls: No - Gastrointestinal Hx Gastrointestinal Disorders: Yes Hx Gall Bladder Disease: Yes (CHOLECYSTECTOMY) Hx Gastroesophageal Reflux: Yes - Genitourinary/Gynecological Hx Genitourinary Disorders: No - Psychiatric Hx Psychophysiologic Disorder: Yes Hx Depression: Yes Hx Substance Use: No - Surgical History Hx Cholecystectomy: Yes - Anesthesia Hx Anesthesia: Yes Hx Anesthesia Reactions: No Hx Malignant Hyperthermia: No - Suicidal Assessment Feels Threatened In Home Enviroment: No Family/Social History - Physician Review Nursing Documentation Reviewed: Yes Family/Social History: Unknown Family HX Smoking Status: Former Smoker Hx Alcohol Use: No Hx Substance Use: No Hx Substance Use Treatment: No Allergies/Home Meds Allergies/Adverse Reactions: Allergies No Known Allergies Allergy (Verified 01/16/17 15:55) Home Medications: Home Meds Medication Instructions Recorded Confirmed Mirtazapine [Remeron] 30 mg PO BID 07/10/13 05/10/17 Pantoprazole Sodium [Protonix] 40 mg PO DAILY 11/13/16 05/10/17 Lisinopril [Zestril] 5 mg PO DAILY 03/09/17 05/10/17 QUEtiapine [SEROquel] 50 mg PO DAILY 03/09/17 05/10/17 Acetaminophen/Butalbital/Caf 1 tab PO PRN PRN 05/10/17 05/10/17 [Fioricet] Cholecalciferol [Vitamin D 1000 IU] 50,000 units PO .WEEKLY 05/10/17 05/10/17 clonazePAM [Klonopin] 0.5 mg PO TID PRN 05/10/17 05/10/17 oxyCODONE/Acetaminophen [Percocet 1 tab PO TID 05/10/17 05/10/17 5/325 mg Tab] Review of Systems - Physician Review All systems were reviewed & negative as marked: Yes - Review of Systems Constitutional: absent: Fevers Respiratory: absent: SOB Cardiovascular: absent: Chest Pain Gastrointestinal: Nausea, Vomiting. absent: Abdominal Pain Genitourinary Female: absent: Other (loss of continence) Physical Exam - Physical Exam Narrative Physical Exam (Text): 05/10/17 07:36 Constitutional: No acute distress. Head: Normocephalic. Atraumatic. Eyes: PERRL. ENT: Moist mucous membranes. No tongue bite. Neck: Supple. No midline tenderness. Cardiovascular: Regular rate. Chest: No tenderness. Respiratory: Clear to auscultation bilaterally. GI: Soft. Nontender. Nondistended. No abdominal tenderness. Back: No CVA tenderness. No midline tenderness. Musculoskeletal: No tenderness or swelling of extremities. Full ROM x4. Skin: No rash. Neurologic: Alert, no focal deficit. Vital Signs Reviewed: Yes Vital Signs Temp Pulse Resp BP Pulse Ox 09/14/17 09:34 67 16 108/61 96 05/10/17 06:45 98.1 F 81 16 120/58 L 96 Temperature: Afebrile Blood Pressure: Hypotensive Pulse: Regular Respiratory Rate: Normal Appearance: Positive for: Well-Appearing, Non-Toxic, Comfortable Pain Distress: None Mental Status: Positive for: Alert and Oriented X 3 Finger Stick Blood Glucose: 97 Medical Decision Making ED Course and Treatment: 05/10/17 07:38 Impression: A 62 year old female who possibly syncope. Differential Diagnosis included but are not limited to: Plan: -- Head CT -- EKG -- Chest X-ray -- Labs -- Urinalysis -- Reassess and disposition Prior Visits: Notes and results from previous visits were reviewed. The patient was last seen in the emergency department on 01/16/17 for Headache. The patient was discharged home. Progress Notes: 05/10/17 08:01 Chest X-ray Impression: No pulmonary edema, consolidation, pleural effusion. 05/10/17 09:23 PROCEDURE: CT HEAD WITHOUT CONTRAST. Sifter Operator : Michael Sewell MD Report Date : 05/10/2017 09:06:26 HISTORY:Syncope, history of intracranial hemorrhage COMPARISON:None available. FINDINGS: HEMORRHAGE:No intracranial hemorrhage. BRAIN:There is a focal area of encephalomalacia and atrophy in the right parietal lobe consistent with a chronic infarct or hemorrhage. There are no acute findings VENTRICLES:Unremarkable. No hydrocephalus. CALVARIUM:Unremarkable. PARANASAL SINUSES:Unremarkable as visualized. No significant inflammatory changes. MASTOID AIR CELLS:Unremarkable as visualized. No inflammatory changes. OTHER FINDINGS:None. IMPRESSION:No acute intracranial findings 05/10/17 09:29 EKG: Ordered, reviewed, and independently interpreted the EKG. Rate : Regular Rate Rhythm : NSR Interpretation : No ST-segment elevations or depressions, no T-wave inversions, normal intervals. Accepted for observation by Dr. Laurie Bose consulted for neurology. - Lab Interpretations Lab Results: 05/10/17 07:30 05/10/17 07:30 Lab Results 05/10/17 09:30: Urine Color Light yellow, Urine Appearance Clear, Urine pH 6.0, Ur Specific [place] <= 1.005, Urine Protein Negative, Urine Glucose (UA) Negative, Urine Ketones Negative, Urine Blood Negative, Urine Nitrate Negative, Urine Bilirubin Negative, Urine Urobilinogen 0.2, Ur Leukocyte Esterase Negative 05/10/17 07:30: Sodium 140, Potassium 4.4, Chloride 102, Carbon Dioxide 30, Anion Gap 12, BUN 15, Creatinine 0.9, Est GFR ( Amer) > 60, Est GFR (Non- Af Amer) > 60, Random Glucose 95, Calcium 9.5, Total Bilirubin 0.5, AST 154 H, ALT 142 H, Alkaline Phosphatase 158 H, Total Creatine Kinase 80, Troponin I < 0.01, Total Protein 7.1, Albumin 4.3, Globulin 2.9, Albumin/Globulin Ratio 1.5, Lipase 61 05/10/17 07:30: PT 11.0, INR 1.02, APTT 24.9 05/10/17 07:30: WBC 6.3 D, RBC 4.03, Hgb 12.9, Hct 37.6, MCV 93.3, MCH 32.0, MCHC 34.3, RDW 13.5, Plt Count 241, MPV 9.4, Gran % 66.2, Lymph % (Auto) 22.9, Bland % (Auto) 9.3 H, Eos % (Auto) 1.3 L, Baso % (Auto) 0.3, Gran # 4.18, Lymph # 1.5, Bland # 0.6, Eos # 0.1, Baso # 0.02 - RAD Interpretation Radiology Orders: 05/10/17 07:26 HEAD W/O CONTRAST [CT] Stat CHEST PORTABLE [RAD] Stat - Scribe Statement The provider has reviewed the documentation as recorded by the Thu Smith Provider Scribe Attestation: All medical record entries made by the Cecyiberen were at my direction and personally dictated by me. I have reviewed the chart and agree that the record accurately reflects my personal performance of the history, physical exam, medical decision making, and the department course for this patient. I have also personally directed, reviewed, and agree with the discharge instructions and disposition. Disposition/Present on Arrival - Present on Arrival Any Indicators Present on Arrival: No History of DVT/PE: No History of Uncontrolled Diabetes: No Urinary Catheter: No History of Decub. Ulcer: No History Surgical Site Infection Following: None - Disposition Have Diagnosis and Disposition been Completed?: Yes Diagnosis: Syncope and collapse Disposition: HOSPITALIZED Disposition Time: 09:28 Patient Plan: Observation, Telemetry Condition: FAIR Discharge Instructions (ExitCare): Syncope (ED) Referrals: Jerald Andersen MD [Primary Care Provider] - Follow up with primary Forms: bttn (Indonesian)
[2017-05-10 07:41] LABS: BASO # 0.02 K/mm3 (0.0-2.0); BASO % 0.3 % (0.0-3.0); EOS # 0.1 (0.0-0.7); EOS % 1.3 % (1.5-5.0); GRAN # 4.18 (1.4-6.5); GRAN % 66.2 % (50.0-68.0); HEMATOCRIT 37.6 % (36.0-48.0); LYMPH # 1.5 (1.2-3.4); LYMPH % 22.9 % (22.0-35.0); MEAN CELL VOLUME 93.3 fl (80.0-105.0); MEAN CORPUSCULAR HGB CONC 34.3 g/dl (31.0-37.0); MEAN PLATELET VOLUME 9.4 fl (7.0-11.0); MONO # 0.6 (0.1-0.6); MONO % 9.3 % (1.0-6.0); RED CELL DISTRIBUTION WIDTH 13.5 % (11.5-14.5); WHITE BLOOD COUNT 6.3 10^3/ul (4.5-11.0)
[2017-05-10 07:52] LABS: INR 1.02 (0.93-1.08); PARTIAL THROMBOPLASTIN TIME 24.9 Seconds (23.7-30.8)
[2017-05-10 08:08] LABS: ALB/GLOB RATIO 1.5 (1.1-1.8); ALKALINE PHOSPHATASE 158 U/L (38-126); ALT/SGPT 142 U/L (7-56); AST/SGOT 154 U/L (14-36); BILIRUBIN,TOTAL 0.5 mg/dL (0.2-1.3); BLOOD UREA NITROGEN 15 mg/dL (7-21); CALCIUM 9.5 mg/dL (8.4-10.5); CARBON DIOXIDE 30 mmol/L (21-33); CHLORIDE 102 mmol/L (98-107); GFR AFRICAN-AMERICAN > 60; GLUCOSE,RANDOM 95 mg/dL (70-110); LIPASE 61 U/L (23-300); POTASSIUM 4.4 mmol/L (3.6-5.0); SODIUM 140 mmol/L (132-148); TOTAL PROTEIN 7.1 g/dL (5.8-8.3)
[2017-05-10 08:21] LABS: TROPONIN I < 0.01 ng/mL
--- NOTE | 2017-05-10 08:46 | RAD ---
HISTORY: syncope COMPARISON: 11/02/2013 FINDINGS: LUNGS: No active pulmonary disease. PLEURA: No significant pleural effusion identified, no pneumothorax apparent. CARDIOVASCULAR: Normal. OSSEOUS STRUCTURES: No significant abnormalities. VISUALIZED UPPER ABDOMEN: Normal. OTHER FINDINGS: None. IMPRESSION: No active disease.
--- NOTE | 2017-05-10 09:10 | CT ---
PROCEDURE: CT HEAD WITHOUT CONTRAST. HISTORY: Syncope, history of intracranial hemorrhage COMPARISON: None available. TECHNIQUE: Axial computed tomography images were obtained through the head/brain without intravenous contrast. Radiation dose: Total exam DLP = 941 mGy-cm. This CT exam was performed using one or more of the following dose reduction techniques: Automated exposure control, adjustment of the mA and/or kV according to patient size, and/or use of iterative reconstruction technique. FINDINGS: HEMORRHAGE: No intracranial hemorrhage. BRAIN: There is a focal area of encephalomalacia and atrophy in the right parietal lobe consistent with a chronic infarct or hemorrhage. There are no acute findings VENTRICLES: Unremarkable. No hydrocephalus. CALVARIUM: Unremarkable. PARANASAL SINUSES: Unremarkable as visualized. No significant inflammatory changes. MASTOID AIR CELLS: Unremarkable as visualized. No inflammatory changes. OTHER FINDINGS: None. IMPRESSION: No acute intracranial findings
[2017-05-10 09:49] LABS: URINE BILIRUBIN NEGATIVE (NEGATIVE); URINE BLOOD NEGATIVE (NEGATIVE); URINE COLOR LIGHT YELLOW (YELLOW); URINE GLUCOSE (UA) NEGATIVE (NEGATIVE); URINE KETONE NEGATIVE (NEGATIVE); URINE LEUKOCYTE ESTERASE NEGATIVE Leu/uL (NEGATIVE); URINE PROTEIN NEGATIVE mg/dL (<30 mg/dL); URINE UROBILINOGEN 0.2 E.U./dL (<1 E.U./dL)
[2017-05-10 09:50] LABS: URINE APPEARANCE CLEAR (CLEAR)
--- NOTE | 2017-05-10 10:44 | CARD ---
APPROVED REPORT EKG Measurement Heart [id number] <Conclusion> Normal sinus rhythm Normal ECG
[2017-05-10 13:19] VITALS: BMI 25.7
[2017-05-10] MEDS ORDERED: Pneumococcal 23-Valent Vaccine IM ONE (13:19)
[2017-05-10] MEDS: Apap-Butalbital-Caffeine 325-50-40mg Tab PO PRN (14:51)
[2017-05-10] MEDS ORDERED: Oxycodone/Acetaminophen 5/325 mg Tab PO PRN (15:52)
--- NOTE | 2017-05-10 17:36 | CP.PCM.CON ---
<Matt Fonseca - Last Filed: 05/10/17 17:20> History of Present Illness - History of Present Illness History of Present Illness: Neurology Progress Note for Dr. Sullivan Service Consulted for: Syncope This is a 62 yo F with PMH of prior R parietal hemorrhagic stroke, HTN , Scoliosis, Arthritis, and prior Cholecystectomy who presented [place] [facility] [place] with complaint of "blacking out" episode early in the morning. Patient reports sensation of generalized malaise and dizziness yesterday while at her neurologist's office, but it self resolved, and she went to bed without issue. At ~3 AM, she awoke from sleep with sensation of needing to vomit, got out of bed and walked to her bathroom, and after making it to the bathroom, abruptly felt lightheaded, reached out to brace herself on the sink, and blacked out. She reports awaking within a few seconds, on her knees, feeling tremulous but still holding on to the sink. She reports an episode of emesis shortly after, non-bloody and non-bilious. Of note, she has had a similar admission on 11/13/16 , which was determined to be vasovagal syncope. At time of exam, patient denies any acute complaints, including dizziness/room-spinning, vision changes, chest pain, shortness of breath, cough, nausea, diarrhea/constipation, dysuria/ hematuria, focal weakness/paresthesias, or fevers/chills. Denies any further episodes of emesis. Baseline gait disturbance which is residual from her prior stroke, unchanged as per pt. All other ROS in 12-point system review negative. PMH: as above PSH: Cholecystectomy SHx: Admits former cigarettes (1/2 ppd), denies alcohol/illicits FHx: Denies PMD: Dr. Andersen Review of Systems - Review of Systems All systems: reviewed and no additional remarkable complaints except (as per HPI ) Past Patient History - Infectious Disease Hx of Infectious Diseases: None - Tetanus Immunizations Tetanus Immunization: Unknown - Past Social History Smoking Status: Former Smoker - CARDIAC Hx Hypercholesterolemia: Yes Hx Hypertension: Yes Hx Mitral Valve Prolapse: Yes - PULMONARY Hx Respiratory Disorders: Yes Hx Pneumonia: Yes (multiple times) Other/Comment: double pneumonia, pneumonia as a child, walking pneumonia, scar tissue from pneumonia - NEUROLOGICAL HX Cerebrovascular Accident: Yes (09/2016 residual loss of words "sometimes") Hx Dizziness: Yes Hx Seizures: Yes Other/Comment: 09/2016 was vomiting x 3 days got up to go to the bathroom blacked out then regained consciousness called 911 pt suffered a hemorrhagic stroke, pt suffers from chronic headaches but they have worsened ever since cva - HEENT Hx HEENT Problems: Yes (eyeglasses denies diplopia) - RENAL Hx Chronic Kidney Disease: Yes Hx Kidney Stones: Yes (left kidney stone at 21 years old.PASSES STONES) Hx Pyelonephritis: Yes - ENDOCRINE/METABOLIC Hx Endocrine Disorders: No - HEMATOLOGICAL/ONCOLOGICAL Hx Blood Disorders: No - INTEGUMENTARY Hx Dermatological Problems: Yes (tatoo) - MUSCULOSKELETAL/RHEUMATOLOGICAL Hx Musculoskeletal Disorders: Yes (scoliosis) Hx Arthritis: Yes (rheumatoid arthritis) Hx Back Pain: Yes ("bone on bone" stated pt) Hx Falls: Yes (syncope and collapse) Hx Unsteady Gait: Yes - GASTROINTESTINAL Hx Gastrointestinal Disorders: Yes Hx Gall Bladder Disease: Yes Hx Gastroesophageal Reflux: Yes - GENITOURINARY/GYNECOLOGICAL Hx Genitourinary Disorders: No - PSYCHIATRIC Hx Psychophysiologic Disorder: Yes Hx Depression: Yes Hx Panic Symptoms: Yes Hx Substance Use: No - SURGICAL HISTORY Hx Cholecystectomy: Yes (and removal of 10 gallstones) Hx Orthopedic Surgery: Yes (right knee torn meniscus) - ANESTHESIA Hx Anesthesia: Yes Hx Anesthesia Reactions: No Hx Malignant Hyperthermia: No Meds Allergies/Adverse Reactions: Allergies Allergy/AdvReac Type Severity Reaction Status Date / Time No Known Allergies Allergy Verified 01/16/17 15:55 - Medications Medications: Current Medications Acetaminophen/Butalbital/Caffeine (Fioricet) 1 tab PO Q4H PRN PRN Reason: Headache Last Admin: 05/10/17 14:51 Dose: 1 tab Amlodipine Besylate (Norvasc) 10 mg PO DAILY PAO Atorvastatin Calcium (Lipitor) 20 mg PO DIN PAO Clonazepam (Klonopin) 0.5 mg PO Q8 PRN; Protocol PRN Reason: Anxiety Levetiracetam (Keppra) 500 mg PO BID PAO Mirtazapine (Remeron) 30 mg PO HS PAO Oxycodone/Acetaminophen (Percocet 5/325 Mg Tab) 1 tab PO Q6H PRN PRN Reason: Pain, moderate (4-7) Stop: 05/13/17 15:53 Pantoprazole Sodium (Protonix Ec Tab) 40 mg PO 0600 PAO Quetiapine Fumarate (Seroquel) 50 mg PO HS PAO PRN Reason: Protocol Physical Exam - Constitutional Appears: Well, Non-toxic, No Acute Distress - Head Exam Head Exam: ATRAUMATIC, NORMAL INSPECTION, NORMOCEPHALIC - Eye Exam Eye Exam: EOMI, Normal appearance, PERRL. absent: Conjunctival injection, Scleral icterus Pupil Exam: NORMAL ACCOMODATION, PERRL. absent: Fixed, Irregular, Unequal - ENT Exam ENT Exam: Mucous Membranes Moist - Neck Exam Neck exam: Positive for: Full Rom, Normal Inspection - Respiratory Exam Respiratory Exam: Clear to Auscultation Bilateral, NORMAL BREATHING PATTERN. absent: Accessory Muscle Use, Chest Wall Tenderness, Decreased Breath Sounds, Rales, Rhonchi, Wheezes - Cardiovascular Exam Cardiovascular Exam: REGULAR RHYTHM, RRR, +S1, +S2. absent: Bradycardia, Tachycardia, Irregular Rhythm, JVD, +S4 - GI/Abdominal Exam GI & Abdominal Exam: Normal Bowel Sounds, Soft. absent: Diminished Bowel Sounds , Distended, Firm, Guarding, Hyperactive Bowel Sounds, Hypoactive Bowel Sounds, Rigid, Tenderness - Extremities Exam Extremities exam: Positive for: full ROM, normal capillary refill, pedal edema ( mild non-pitting edema in the LLE from ankle to mid-camp, none present in RLE), pedal pulses present. Negative for: calf tenderness, joint swelling, tenderness - Back Exam Back exam: absent: CVA tenderness (L), CVA tenderness (R) - Neurological Exam Neurological exam: Alert, CN II-XII Intact, Oriented x3 Additional comments: awake and alert, moving extremities spontaneously, following all commands appropriately motor strength 5/5 in bilateral UE and LE, manager commission strength 5/5 bilaterally Motor and sensory grossly intact and equal bilaterally - Psychiatric Exam Psychiatric exam: Normal Affect, Normal Mood - Skin Skin Exam: Dry, Intact, Normal Color, Warm Results - Vital Signs Recent Vital Signs: Last Vital Signs Temp 98.1 F 05/10/17 12:55 Pulse 67 05/10/17 12:55 Resp 16 05/10/17 12:55 BP 108/61 05/10/17 12:55 Pulse Ox 97 05/10/17 11:42 - Labs Result Diagrams: 05/10/17 07:30 05/10/17 07:30 Assessment & Plan - Assessment and Plan (Free Text) Assessment: This is a 62 yo F with PMH of prior R parietal hemorrhagic stroke, HTN , Scoliosis, Arthritis, and prior Cholecystectomy who presented [place] [facility] [place] complaint of "blacking out" episode early in the morning. Her syncopal episode is more likely vasovagal syncope given that she had strong sense of nausea and impending emesis prior to the syncopal episode, and given prior hx of vasovagal syncope. CT head was negative for any acute process, only notable for encephalomalacia from prior stroke. Will obtain an MRI of her brain; if normal, would be clear for discharge from neurology perspective. Would recommend consult to GI, however, given her elevated LFTs, which is a new finding in this patient. Will continue Keppra for seizure ppx given prior stroke and ecephalomalacia. Plan: 1) Hydrate gently 2) Maintain SBP 120's-140's, avoid aggressive increases or sudden decreases 3) Hydrate gently, encourage PO fluid intake 4) Keppra PO 500mg PO BID for seizure ppx 5) Lipitor daily, stroke protective 6) F/u Brain MRI 7) Fioricet PO q4 PRN for headache/migraine 8) Rec GI consult given newly elevated LFTs Patient seen, reviewed, and discussed with attending, Dr. Sullivan. <Kp Sullivan - Last Filed: 05/11/17 12:54> Meds - Medications Medications: Current Medications Acetaminophen/Butalbital/Caffeine (Fioricet) 1 tab PO Q4H PRN PRN Reason: Headache Last Admin: 05/11/17 10:28 Dose: 1 tab Amlodipine Besylate (Norvasc) 10 mg PO DAILY [facility] Last Admin: 05/11/17 10:15 Dose: Not Given Atorvastatin Calcium (Lipitor) 20 mg PO DIN [facility] Last Admin: 05/10/17 18:40 Dose: Not Given Clonazepam (Klonopin) 0.5 mg PO TID PRN; Protocol PRN Reason: Anxiety Levetiracetam (Keppra) 500 mg PO BID [facility] Last Admin: 05/11/17 10:09 Dose: 500 mg Mirtazapine (Remeron) 30 mg PO HS [facility] Last Admin: 05/10/17 21:46 Dose: 30 mg Oxycodone/Acetaminophen (Percocet 5/325 Mg Tab) 1 tab PO Q6H PRN PRN Reason: Pain, moderate (4-7) Stop: 05/13/17 15:53 Last Admin: 05/10/17 19:09 Dose: 1 tab Pantoprazole Sodium (Protonix Ec Tab) 40 mg PO 0600 [facility] Last Admin: 05/11/17 05:10 Dose: 40 mg Quetiapine Fumarate (Seroquel) 50 mg PO DAILY [facility] Last Admin: 05/11/17 10:13 Dose: Not Given Results - Vital Signs Recent Vital Signs: Last Vital Signs Temp 97.8 F 05/11/17 06:00 Pulse 56 L 05/11/17 06:00 Resp 20 05/11/17 06:00 BP 120/58 L 05/11/17 10:10 Pulse Ox 94 L 05/11/17 06:00 - Labs Result Diagrams: 05/10/17 07:30 05/10/17 07:30 Attending/Attestation - Attestation I have personally seen and examined this patient.: Yes I have fully participated in the care of the patient.: Yes I have reviewed all pertinent clinical information: Yes
[2017-05-10] MEDS ORDERED: Apap-Butalbital-Caffeine 325-50-40mg Tab PO PRN (20:52)
[2017-05-11] MEDS: Apap-Butalbital-Caffeine 325-50-40mg Tab PO PRN ×3 (04:17→17:08)
[2017-05-11] MEDS ORDERED: Pantoprazole 40 mg EC Tab PO SCH ×2 (06:00→10:00)
[2017-05-11 06:10] VITALS: O2SAT 94
[2017-05-11] MEDS ORDERED: Non Formulary Medication (Quetiapine [Seroquel] 50 MG) PO SCH (10:00)
[2017-05-11 13:15] LABS: ALB/GLOB RATIO 1.4 (1.1-1.8); ALKALINE PHOSPHATASE 123 U/L (38-126); ALT/SGPT 85 U/L (7-56); AST/SGOT 49 U/L (14-36); BILIRUBIN,TOTAL 0.3 mg/dL (0.2-1.3); BLOOD UREA NITROGEN 15 mg/dL (7-21); CALCIUM 9.5 mg/dL (8.4-10.5); CARBON DIOXIDE 29 mmol/L (21-33); CHLORIDE 104 mmol/L (98-107); GFR AFRICAN-AMERICAN > 60; GLUCOSE,RANDOM 96 mg/dL (70-110); POTASSIUM 4.7 mmol/L (3.6-5.0); SODIUM 141 mmol/L (132-148)
[2017-05-11 14:16] VITALS: PULSE 68
[2017-05-11 14:39] VITALS: BP 115/69; RESP 17; TEMP 98.5
--- NOTE | 2017-05-11 20:04 | PN ---
DATE: 05/11/2017 CHIEF COMPLAINT: Followup for syncope. SUBJECTIVE: The patient seen and examined at bedside, doing well. No further complaints. EEG showed mild bilateral cerebral dysfunction. No evidence of any epileptiform activity. Labs are much better. She is on Keppra for seizure prophylaxis and her headaches much better since Fioricet. PAST MEDICAL HISTORY: History of right parietal hemorrhagic CVA, currently with encephalomalacia now, hypertension, scoliosis, arthritis, prior cholecystectomy. REVIEW OF SYSTEMS: A 14-point review of systems is negative except as per the HPI. ALLERGIES: NO KNOWN DRUG ALLERGIES. SOCIAL HISTORY: No illicit drug use, smoking, or EtOH abuse. MEDICATIONS: Reviewed by nurse practitioner per reconciliation sheet. PHYSICAL EXAMINATION GENERALS: The patient seen at the bed, in no acute distress. VITAL SIGNS: Temperature 98.5, pulse rate of 67, blood pressure 115/69, respiration rate of 17, oxygen saturation 100% on room air. HEENT: Atraumatic and normocephalic. PERRLA. Extraocular muscles intact. NECK: Supple. No JVD. No adenopathy noted. LUNGS: Clear to auscultation. No adventitious sounds. HEART: S1 and S2, normal rate and rhythm. No murmurs, rubs, or gallops. ABDOMEN: Soft, nontender, nondistended. Bowel sounds are present. EXTREMITIES: No clubbing and no cyanosis. Peripheral pulses are 2+ felt bilaterally. NEUROLOGIC: The patient is alert and oriented to person, place, month and year. Speech is fluent without any errors. Cranial nerves II through XII intact. Motor exam: Moves all extremities equally. No pronator drift seen. Sensory exam: Light touch, pinprick, proprioception, vibration intact. DTRs are 2+ throughout. Coordination: [id number] intact. Gait is normal. LABORATORY DATA: Sodium is 141, potassium 4.7, chloride 104, carbon dioxide 29, BUN 15, creatinine is 0.1 and random glucose is 96. ASSESSMENT AND PLAN: This is a 62-year-old woman with history prior hemorrhagic stroke on Keppra for seizure prophylaxis, hypertension, scoliosis, arthritis, history of syncope in the past, who presents for blacking out episode early in the morning. Her syncopal episode is most likely vasovagal in nature. EEG showed small bilateral cerebral dysfunction. No evidence of any epileptiform activity. At this time, neuro exam is nonfocal. She can followup in the office with us for underlying headaches and syncopal events and recommend to hydrate gently and maintain a systolic blood pressures of 120. Also recommend to continue with Keppra 500 mg p.o. b.i.d., for seizure prophylaxis and can followup as an outpatient. Thank you for this followup. She can have a MRI of brain as an outpatient. Kp Sullivan MD
--- NOTE | 2017-05-11 23:59 | HP ---
HISTORY OF PRESENT ILLNESS: The patient is a 62-year-old white female who came to emergency room. She states last night around 3 o'clock when she went to the bathroom, while she was holding onto the thing, she felt as if she is going to pass out. She started to vomit. She stated she had similar symptoms when she had hemorrhagic stroke last year. Because of her similar symptoms, she got scarred that she is having another stroke. Her roommate drove her to emergency room for further evaluation. PAST MEDICAL HISTORY: She has significant past medical history of cerebellar stroke with no residual deficit. There is no significant history of hypertension or hyperlipidemia. 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 ALLERGIES: SHE IS NOT ALLERGIC TO ANY MEDICATIONS. MEDICATIONS AT HOME: She is on Percocet. She is on Keppra 500 twice a day, Klonopin 0.5 three times a day, Norvasc 10 mg daily, Seroquel 50 mg daily, Protonix 40 daily, Remeron 30 mg twice a day, lisinopril 5 mg daily, vitamin D, Lipitor 20 mg daily. SOCIAL HISTORY: She is single. Lives with her friend. Denies smoking or drinking. REVIEW OF SYSTEMS: She states she feels a lot better. No more nauseating and tolerating and wants to go home. PHYSICAL EXAMINATION GENERAL: She is awake and alert, communicative, VITAL SIGNS: She is afebrile. Pulse 56, respirations 20, blood pressure 120/58. LUNGS: Bilateral fair airflow. No rhonchi or crackle. HEART: S1, S2 audible. ABDOMEN: Soft, nontender. No rebound. No guarding. NEUROLOGIC: The patient is awake and alert, able to communicate. LABORATORY EXAM: WBC 6.3, hemoglobin 12.9, hematocrit 37.6, platelets 241. PT 11.0, INR 1.02. Chemistry: Sodium 140, potassium 4.4, chloride 102, CO2 of 30, BUN 15, creatinine of 0.9, blood sugar of 95. AST 154, ALT 142, alk phos 158. Urinalysis is unremarkable. CT scan of the head is negative. ASSESSMENT AND PLAN: 1. Questionable syncope. 2. History of hemorrhagic stroke in the past. 3. Hypertension. 4. Hyperlipidemia. 5. Abnormal liver function tests, etiology unclear. The patient denies drinking alcohol and she is status post cholecystectomy. I will order for EEG stat to rule out questionable seizure disorder because the patient states she felt disoriented and she was shaking, but she never lost consciousness. I will repeat LFTs. If they are still elevated, we will get GI involved. Beth Valderrama MD
--- NOTE | 2017-05-14 08:04 | EEG ---
CONDITION OF THIS RECORDING: Awake. DIAGNOSIS: Syncope. MEDICATIONS: Reviewed by nurse per reconciliation sheet. INTERPRETATION: This is a 16-channel international recording. Background activity was composed of 6 to 7 cycles per second. There was a small amount of beta activity of 16 to 20 cycles per second seen in this recording. There was increased amount of theta activity of 5 to 7 cycles per second seen in this tracing. Drowsiness was characterized by mixed theta and beta activities. Sleep was characterized by vertex transient waves, sleep spindles, and bilateral slowing. Photic stimulation showed no change in the tracing. No paroxysmal activity noted in this recording. CONCLUSION: This is an abnormal EEG due to presence of mild diffuse slowing consistent with mild bilateral cerebral dysfunction. No evidence of any epileptiform activity. Please clinically correlate. Kp Sullivan MD
== END 2017-05-11 18:39 | disposition home or self-care (01) ==
LOC: ED 06:38 → ERH 10:35 → 2RNO 11:49
PROVIDERS: ADMIT Internal Medicine; ATTEND Internal Medicine
DX: R55 Syncope and collapse (principal); G93.89 Other specified disorders of brain; M41.9 Scoliosis, unspecified; I10 Essential (primary) hypertension; E78.5 Hyperlipidemia, unspecified; Z86.73 Personal history of transient ischemic attack (TIA), and cerebral infarction without residual deficits; R79.89 Other specified abnormal findings of blood chemistry; Z87.01 Personal history of pneumonia (recurrent); Z87.891 Personal history of nicotine dependence; Z90.49 Acquired absence of other specified parts of digestive tract
CPT/HCPCS: 36415; 70450; 71010; 80053; 80074; 81003; 82550; 83690; 84484; 85025; 85610; 85730; 93005; 95812; 99285; G0378

== ENCOUNTER 2017-06-04 10:57 | Emergency (ER) | payer MEDICAID ==
[2017-06-04 11:04] VITALS: RESP 18; TEMP 97.9; O2SAT 100; BMI 24.7
[2017-06-04] MEDS ORDERED: Morphine 2 mg/ml ISec IM STA (11:08)
--- NOTE | 2017-06-04 11:12 | ED PDOC ---
Arrival/HPI - General Time Seen by Provider: 06/04/17 11:02 Historian: Patient, EMS - History of Present Illness Narrative History of Present Illness (Text): 06/04/17 11:09 62 y/o female, pmh including htn/hyperlipidemia/chronic headache, nkda, not on any blood thinners or anticoagulants, biba, c/o rt. knee pain x 1 hour. Pt. stated that she has runny nose and coughing for the past 4 days, woke up this morning to do her chores and slipped which she landed on the rt. knee, aching pain, painful to bear weight, no numbness or tinging, no head or neck injury, no back injury, no calf or heel pain, no abdominal pain or diarrhea, no night sweat, no LOC, able to remember the whole event, no other medical or psychological complaints. Past Medical History - Provider Review Nursing Documentation Reviewed: Yes - Infectious Disease Hx of Infectious Diseases: None - Tetanus Immunization Tetanus Immunization: Unknown - Cardiac Hx Hypertension: Yes Hx Mitral Valve Prolapse: Yes - Pulmonary Hx Respiratory Disorders: Yes Hx Pneumonia: Yes (multiple times) Other/Comment: double pneumonia, pneumonia as a child, walking pneumonia, scar tissue from pneumonia - Neurological HX Cerebrovascular Accident: Yes (09/2016 residual loss of words "sometimes") Hx Dizziness: Yes Hx Seizures: Yes Other/Comment: 09/2016 was vomiting x 3 days got up to go to the bathroom blacked out then regained consciousness called 911 pt suffered a hemorrhagic stroke, pt suffers from chronic headaches but they have worsened ever since cva - HEENT Hx HEENT Disorder: Yes (eyeglasses denies diplopia) - Renal Hx Renal Disorder: Yes Hx Kidney Stones: Yes (left kidney stone at 21 years old.[employer]) Hx Pyelonephritis: Yes - Endocrine/Metabolic Hx Endocrine Disorders: No - Hematological/Oncological Hx Blood Disorders: No - Integumentary Hx Dermatological Disorder: Yes (tatoo) - Musculoskeletal/Rheumatological Hx Musculoskeletal Disorders: Yes (scoliosis) Hx Arthritis: Yes (rheumatoid arthritis) Hx Back Pain: Yes ("bone on bone" stated pt) Hx Falls: Yes (syncope and collapse) Hx Unsteady Gait: Yes - Gastrointestinal Hx Gastrointestinal Disorders: Yes Hx Gall Bladder Disease: Yes Hx Gastroesophageal Reflux: Yes - Genitourinary/Gynecological Hx Genitourinary Disorders: No - Psychiatric Hx Psychophysiologic Disorder: Yes Hx Depression: Yes Hx Panic Disorder: Yes Hx Substance Use: No - Surgical History Hx Cholecystectomy: Yes (and removal of 10 gallstones) Hx Orthopedic Surgery: Yes (right knee torn meniscus) - Anesthesia Hx Anesthesia: Yes Hx Anesthesia Reactions: No Hx Malignant Hyperthermia: No - Suicidal Assessment Feels Threatened In Home Enviroment: No Family/Social History - Physician Review Nursing Documentation Reviewed: Yes Family/Social History: Unknown Family HX Smoking Status: Former Smoker Hx Alcohol Use: No Hx Substance Use: No Hx Substance Use Treatment: No Allergies/Home Meds Allergies/Adverse Reactions: Allergies No Known Allergies Allergy (Verified 01/16/17 15:55) Home Medications: Home Meds Medication Instructions Recorded Confirmed Mirtazapine [Remeron] 30 mg PO BID 07/10/13 05/10/17 Pantoprazole Sodium [Protonix] 40 mg PO DAILY 11/13/16 05/10/17 Lisinopril [Zestril] 5 mg PO DAILY 03/09/17 05/10/17 QUEtiapine [SEROquel] 50 mg PO DAILY 03/09/17 05/10/17 Acetaminophen/Butalbital/Caf 1 tab PO PRN PRN 05/10/17 05/10/17 [Fioricet] Cholecalciferol [Vitamin D 1000 IU] 50,000 units PO .WEEKLY 05/10/17 05/10/17 clonazePAM [Klonopin] 0.5 mg PO TID PRN 05/10/17 05/10/17 oxyCODONE/Acetaminophen [Percocet 1 tab PO TID 05/10/17 05/10/17 5/325 mg Tab] Review of Systems - Review of Systems Constitutional: absent: Fatigue, Fevers Eyes: absent: Vision Changes ENT: absent: Hearing Changes Respiratory: Cough. absent: SOB Cardiovascular: absent: Chest Pain Gastrointestinal: absent: Abdominal Pain, Nausea, Vomiting Musculoskeletal: Arthralgias, Joint Swelling. absent: Back Pain, Neck Pain, Myalgias Skin: absent: Rash, Pruritis Neurological: absent: Headache, Dizziness Physical Exam Vital Signs Reviewed: Yes Vital Signs Temp Pulse Resp BP Pulse Ox 06/04/17 11:04 97.9 F 86 18 118/68 100 Temperature: Afebrile Blood Pressure: Normal Pulse: Regular Respiratory Rate: Normal Appearance: Positive for: Well-Appearing, Non-Toxic, Comfortable Pain Distress: Moderate Mental Status: Positive for: Alert and Oriented X 3 - Systems Exam Head: Present: Atraumatic, Normocephalic. No: Tenderness, Contusion, Swelling, Ecchymosis, Abrasion, Laceration, Other Pupils: Present: PERRL Extroacular Muscles: Present: EOMI Conjunctiva: Present: Normal Mouth: Present: Moist Mucous Membranes Nose (External): Present: Atraumatic. No: Abrasion, Contusion, Laceration Nose (Internal): Present: Normal Inspection, No Active Bleeding. No: Rhinorrhea , Septal Hematoma, Epistaxis Neck: Present: Normal Range of Motion, Trachea Midline. No: MIDLINE TENDERNESS , Paraspinal Tenderness, Lymphadenopathy Respiratory/Chest: Present: Clear to Auscultation, Good Air Exchange. No: Respiratory Distress, Accessory Muscle Use, Wheezes, Decreased Breath Sounds, Rales, Retracting, Rhonchi, Tachypneic, Tender to Palpation Cardiovascular: Present: Regular Rate and Rhythm, Normal S1, S2, Other (no pedal edema). No: Murmurs Abdomen: Present: Normal Bowel Sounds. No: Tenderness, Distention, Peritoneal Signs, Rebound, Guarding Back: Present: Normal Inspection. No: Midline Tenderness, Paraspinal Tenderness , Pain with Leg Raise Upper Extremity: Present: Normal Inspection, Normal ROM, NORMAL PULSES, Capillary Refill < 2s. No: Cyanosis, Edema, Tenderness, Swelling, Deformity Lower Extremity: Present: Normal Inspection, Normal ROM, Capillary Refill < 2 s , Other (Rt. knee: +ttp and mild swelling on the anterior lateral of the knee, negative jacques and haile signs, FROM without limitation, sensation intact, motor 5/5, +DPPT pulses, capillary refill< 2 seconds, neurovascular intact. ). No: Edema, Deformity Neurological: Present: GCS=15, CN II-XII Intact, Speech Normal Skin: Present: Warm, Dry, Normal Color. No: Rashes Psychiatric: Present: Alert, Oriented x 3, Normal Insight, Normal Concentration Medical Decision Making ED Course and Treatment: 06/04/17 11:13 -xrays -morphine 2mg IM -Observe and reassess 06/04/17 12:45 -Pain decreased. -Chest xray show no active disease -Rt. knee xray show no fracture or dislocation -Raghu wrap, crutches given. -Discharge home with celebrex, promethazine dm, raghu wrap, crutches, ice pack, non-weight bearing, follow up with your own pmd and orthopedic within 2 days, return to the ER for any new or worsening signs or symptoms. - RAD Interpretation Radiology Orders: 06/04/17 11:08 CHEST TWO VIEWS (PA/LAT) [RAD] Stat KNEE W PATELLA RIGHT 3 VIEW [RAD] Stat Chest xray: HISTORY: cough x 4 days COMPARISON: No prior. TECHNIQUE: Chest PA and lateral FINDINGS: LUNGS: No active pulmonary disease. PLEURA: No significant pleural effusion identified. No pneumothorax apparent. CARDIOVASCULAR: Normal. OSSEOUS STRUCTURES: No significant abnormalities. VISUALIZED UPPER ABDOMEN: Normal. OTHER FINDINGS: None. IMPRESSION: No active disease. Rt. knee xray: PROCEDURE: Right Knee Radiographs. HISTORY: rt. knee injury from fall x 2 hours COMPARISON: None. FINDINGS: BONES: Normal. No fracture. JOINTS: Normal. No osteoarthritis. JOINT EFFUSION: None. OTHER FINDINGS: The patellar view is unremarkable IMPRESSION: Normal radiographs of the right knee. Electrical Instrument Maker: Radiologist - Medication Orders Current Medication Orders: Discontinued Medications Morphine Sulfate (Morphine) 2 mg IM STAT STA Stop: 06/04/17 11:09 Last Admin: 06/04/17 11:34 Dose: 2 mg [facility] Pain Assessment Document 06/04/17 11:34 LA (Rec: 06/04/17 11:36 LA [id number]) Pain Reassessment Is this a pain reassessment? No Sleep Is patient sleeping during reassessment? No Presence of Pain Presence of Pain Yes Pain Scale Used Pain Scale Used Numeric Location Left, Right or Bilateral Right Pain Location Body Site Knee Description Description Sharp Intensity of Pain at present 10 Acceptable Level of Pain 2 Pain Behavior Guarding Aggravating Factors None IM Administration Charges Document 06/04/17 11:34 LA (Rec: 06/04/17 11:36 LA [id number]) Injection Site MAR Injection Site Right Deltoid Charges for Administration # of IM Administrations 1 - PA / ULTRASOUND TECHNICIAN / Resident Statement MD/DO has reviewed & agrees with the documentation as recorded. Disposition/Present on Arrival - Present on Arrival Any Indicators Present on Arrival: No History of DVT/PE: No History of Uncontrolled Diabetes: No Urinary Catheter: No History of Decub. Ulcer: No History Surgical Site Infection Following: None - Disposition Have Diagnosis and Disposition been Completed?: Yes Diagnosis: Knee injury, Knee pain, Viral URI Disposition: HOME/ ROUTINE Disposition Time: 12:48 Patient Plan: Discharge Patient Problems: Current Active Problems Problem Status Onset Knee injury Acute Knee pain Acute Condition: IMPROVED Additional Instructions: -Discharge home with celebrex, promethazine dm, raghu wrap, crutches, ice pack, non-weight bearing, follow up with your own pmd and orthopedic within 2 days, return to the ER for any new or worsening signs or symptoms. Prescriptions: Celecoxib [CeleBREX] 200 mg PO DAILY PRN #14 cap PRN Reason: Other Promethazine DM [Phenergan DM Syrup] 5 ml PO QID #250 ml Referrals: Renato Cruz MD [Staff Provider] - Follow up with primary Forms: WORK NOTE
--- NOTE | 2017-06-04 12:34 | RAD ---
HISTORY: cough x 4 days COMPARISON: No prior. TECHNIQUE: Chest PA and lateral FINDINGS: LUNGS: No active pulmonary disease. PLEURA: No significant pleural effusion identified. No pneumothorax apparent. CARDIOVASCULAR: Normal. OSSEOUS STRUCTURES: No significant abnormalities. VISUALIZED UPPER ABDOMEN: Normal. OTHER FINDINGS: None. IMPRESSION: No active disease.
--- NOTE | 2017-06-04 12:35 | RAD ---
PROCEDURE: Right Knee Radiographs. HISTORY: rt. knee injury from fall x 2 hours COMPARISON: None. FINDINGS: BONES: Normal. No fracture. JOINTS: Normal. No osteoarthritis. JOINT EFFUSION: None. OTHER FINDINGS: The patellar view is unremarkable IMPRESSION: Normal radiographs of the right knee.
[2017-06-04] MEDS ORDERED: Oxycodone/Acetaminophen 5/325 mg Tab PO STA (12:50)
[2017-06-04 12:52] VITALS: BP 116/65; PULSE 79
== END 2017-06-04 13:24 | disposition home or self-care (01) ==
LOC: ED 10:57
DX: S89.91XA Unspecified injury of right lower leg, initial encounter (principal); W01.0XXA Fall on same level from slipping, tripping and stumbling without subsequent striking against object, initial encounter; Y93.89 Activity, other specified; Y92.89 Other specified places as the place of occurrence of the external cause; J06.9 Acute upper respiratory infection, unspecified; I10 Essential (primary) hypertension; Z87.891 Personal history of nicotine dependence
CPT/HCPCS: 71020; 73562; 96372; 99284; J2270

== ENCOUNTER 2017-07-23 17:43 | Emergency (ER) | payer MEDICAID ==
[2017-07-23 17:54] VITALS: BMI 25.0
[2017-07-23] MEDS ORDERED: Sodium Chloride 0.9% 1,000 ML IV ONE (18:15)
[2017-07-23] MEDS ORDERED: DiphenhydrAMINE 50 mg/ml Inj IVP STA (18:16)
--- NOTE | 2017-07-23 18:17 | ED PDOC ---
Arrival/HPI - General Time Seen by Provider: 07/23/17 17:57 Historian: Patient - History of Present Illness Narrative History of Present Illness (Text): 07/23/17 18:18 62 yo female with h/o HTN, HCL, CVA (Sep 2016, on Keppra BID), presents to the ED c/o left posterior headache since waking up this morning at 7am. She describes it as gradual onset, radiating forward, and throbbing. She had a stroke early this year so she was concerned and came to the ED. She took two fiorcets which she takes for headaches with only mild relieve. She hasn't been sleeping well and hasn't been drinking enough fluids. She c/o cough on and off for months that is worsened for a couple of days. Some runny nose. No fever, chills or bodyaches. PMD: Dr. Andersen Past Medical History - Provider Review Nursing Documentation Reviewed: Yes - Infectious Disease Hx of Infectious Diseases: None - Tetanus Immunization Tetanus Immunization: Unknown - Cardiac Hx Hypertension: Yes Hx Mitral Valve Prolapse: Yes - Pulmonary Hx Respiratory Disorders: Yes Hx Pneumonia: Yes (multiple times) Other/Comment: double pneumonia, pneumonia as a child, walking pneumonia, scar tissue from pneumonia - Neurological HX Cerebrovascular Accident: Yes (09/2016 residual loss of words "sometimes") Hx Dizziness: Yes Hx Seizures: Yes Other/Comment: 09/2016 was vomiting x 3 days got up to go to the bathroom blacked out then regained consciousness called 911 pt suffered a hemorrhagic stroke, pt suffers from chronic headaches but they have worsened ever since cva - HEENT Hx HEENT Disorder: Yes (eyeglasses denies diplopia) - Renal Hx Renal Disorder: Yes Hx Kidney Stones: Yes (left kidney stone at 21 years old.[facility] STONES) Hx Pyelonephritis: Yes - Endocrine/Metabolic Hx Endocrine Disorders: No - Hematological/Oncological Hx Blood Disorders: No - Integumentary Hx Dermatological Disorder: Yes (tatoo) - Musculoskeletal/Rheumatological Hx Musculoskeletal Disorders: Yes (scoliosis) Hx Arthritis: Yes (rheumatoid arthritis) Hx Back Pain: Yes ("bone on bone" stated pt) Hx Falls: Yes (syncope and collapse) Hx Unsteady Gait: Yes - Gastrointestinal Hx Gastrointestinal Disorders: Yes Hx Gall Bladder Disease: Yes Hx Gastroesophageal Reflux: Yes - Genitourinary/Gynecological Hx Genitourinary Disorders: No - Psychiatric Hx Psychophysiologic Disorder: Yes Hx Depression: Yes Hx Panic Disorder: Yes Hx Substance Use: No - Surgical History Hx Cholecystectomy: Yes (and removal of 10 gallstones) Hx Orthopedic Surgery: Yes (right knee torn meniscus) - Anesthesia Hx Anesthesia: Yes Hx Anesthesia Reactions: No Hx Malignant Hyperthermia: No - Suicidal Assessment Feels Threatened In Home Enviroment: No Family/Social History - Physician Review Nursing Documentation Reviewed: Yes Family/Social History: Unknown Family HX Smoking Status: Former Smoker Hx Alcohol Use: No Hx Substance Use: No Hx Substance Use Treatment: No Allergies/Home Meds Allergies/Adverse Reactions: Allergies No Known Allergies Allergy (Verified 01/16/17 15:55) Home Medications: Home Meds Medication Instructions Recorded Confirmed Mirtazapine [Remeron] 30 mg PO BID 07/10/13 05/10/17 Pantoprazole Sodium [Protonix] 40 mg PO DAILY 11/13/16 05/10/17 Lisinopril [Zestril] 5 mg PO DAILY 03/09/17 05/10/17 QUEtiapine [SEROquel] 50 mg PO DAILY 03/09/17 05/10/17 Acetaminophen/Butalbital/Caf 1 tab PO PRN PRN 05/10/17 05/10/17 [Fioricet] Cholecalciferol [Vitamin D 1000 IU] 50,000 units PO .WEEKLY 05/10/17 05/10/17 clonazePAM [Klonopin] 0.5 mg PO TID PRN 05/10/17 05/10/17 oxyCODONE/Acetaminophen [Percocet 1 tab PO TID 05/10/17 05/10/17 5/325 mg Tab] Review of Systems - Physician Review All systems were reviewed & negative as marked: Yes - Review of Systems Constitutional: Normal. absent: Fevers Eyes: Normal. absent: Photophobia, Eye Pain ENT: Normal Respiratory: Cough, Sputum. absent: SOB, Wheezing Cardiovascular: Normal, Chest Pain (post-tussive to the left side) Gastrointestinal: Normal Genitourinary Female: Normal Musculoskeletal: Normal. absent: Back Pain, Neck Pain Skin: Normal Neurological: Headache. absent: Dizziness Endocrine: Normal Hemo/Lymphatic: Normal Psychiatric: Normal Physical Exam Vital Signs Reviewed: Yes Vital Signs Temp Pulse Resp BP Pulse Ox 07/23/17 18:18 98.2 F 69 16 133/85 96 Temperature: Afebrile Blood Pressure: Normal Pulse: Regular Respiratory Rate: Normal Appearance: Positive for: Well-Appearing, Non-Toxic, Comfortable Pain Distress: None Mental Status: Positive for: Alert and Oriented X 3 - Systems Exam Head: Present: Atraumatic, Normocephalic, Tenderness (posterior head tenderness described as sore) Pupils: Present: PERRL Extroacular Muscles: Present: EOMI Conjunctiva: Present: Normal Mouth: Present: Moist Mucous Membranes Pharnyx: Present: Normal Nose (Internal): Present: Normal Inspection. No: No Active Bleeding Neck: Present: Normal Range of Motion. No: Meningeal Signs, MIDLINE TENDERNESS , Paraspinal Tenderness Respiratory/Chest: Present: Clear to Auscultation, Good Air Exchange, Other ( left chest wall tenderness). No: Respiratory Distress, Accessory Muscle Use Cardiovascular: Present: Regular Rate and Rhythm, Normal S1, S2. No: Murmurs Abdomen: Present: Normal Bowel Sounds. No: Tenderness, Distention, Peritoneal Signs Back: Present: Normal Inspection Upper Extremity: Present: Normal Inspection. No: Cyanosis, Edema Lower Extremity: Present: Normal Inspection. No: Edema Neurological: Present: GCS=15, CN II-XII Intact, Speech Normal, Motor Func Grossly Intact, Normal Sensory Function, Normal Cerebellar Funct, Norm Deep Tendon Reflexes, Memory Normal, Normal 2Pt Descrimination Skin: Present: Warm, Dry, Normal Color. No: Rashes Psychiatric: Present: Alert, Oriented x 3, Normal Insight, Normal Concentration Medical Decision Making ED Course and Treatment: 07/23/17 18:26 62 yo female with headache, cough, congestion, feeling dry r/o Dehydration r/o Sepsis r/o Tension Headache -- Labs -- EKG, CXR -- CT Head -- IVF -- Benadryl, Reglan, Tylenol -- Reevaluate and disposition 07/23/17 18:51 EKG: NSR at 61bpm with no ST elevations, nl intervals 07/23/2017 21:[address] IMPRESSION: Right occipital encephalomalacia, unchanged compared to the prior study, no acute intracranial abnormality. Dictator: Marti Camarena 07/23/17 21:44 Patient feels much better after hydration and pain medications. CT Head negative for ICH. She wants to go home and rest. She has good PMD f/u and will f /u with her PMD. She was advised to return to the ED if symptoms worsen or any other concern. - Lab Interpretations Lab Results: 07/23/17 19:01 07/23/17 19:55 Lab Results 07/23/17 19:55: Sodium 143, Chloride 109 H, Potassium 4.7, Carbon Dioxide 25, Anion Gap 14, BUN 16, Creatinine 1.1, Est GFR ( Amer) > 60, Est GFR (Non- Af Amer) 50, Random Glucose 90, Calcium 9.8, Magnesium 2.2, Total Bilirubin 0.5 , AST 19, ALT 27, Alkaline Phosphatase 113, Total Protein 7.0, Albumin 4.3, Globulin 2.7, Albumin/Globulin Ratio 1.6 07/23/17 19:01: pO2 73 H, VBG pH 7.30 L, VBG pCO2 50.0, VBG HCO3 24.6, VBG Total CO2 26.1, VBG O2 Sat (Calc) 95.7 H, VBG Base Excess -2.4 L, VBG Potassium 5.9 H, Sodium 138.0, Chloride 108.0 H, Glucose 92, Lactate 2.4 H, FiO2 21.0, Venous Blood Potassium 5.9 H 07/23/17 19:01: WBC 7.0, RBC 4.11, Hgb 13.3, Hct 39.2, MCV 95.4, MCH 32.4, MCHC 33.9, RDW 14.5, Plt Count 281, MPV 10.0, Gran % 58.5, Lymph % (Auto) 34.1, [place] % (Auto) 5.6, Eos % (Auto) 1.4 L, Baso % (Auto) 0.4, Gran # 4.10, Lymph # 2.4, [place] # 0.4, Eos # 0.1, Baso # 0.03 - RAD Interpretation Radiology Orders: 07/23/17 18:14 CHEST PORTABLE [RAD] Stat 07/23/17 18:15 HEAD W/O CONTRAST [CT] Stat - Medication Orders Current Medication Orders: Sodium Chloride (Sodium Chloride 0.9%) 1,000 mls @ 250 mls/hr IV .Q4H ONE Stop: 07/23/17 22:14 Last Admin: 07/23/17 19:40 Dose: 250 mls/hr eMAR Start Stop Document 07/23/17 19:40 JOL (Rec: 07/23/17 19:40 JOL [id number]) Intravenous Solution Start Date 07/23/17 Start Time 19:40 End Date 07/23/17 End time 20:40 Total Infusion Time 60 Discontinued Medications Acetaminophen (Tylenol 325mg Tab) 975 mg PO STAT STA Stop: 07/23/17 18:17 Last Admin: 07/23/17 19:41 Dose: 975 mg MAR Pain/Vitals Document 07/23/17 19:41 JOL (Rec: 07/23/17 19:41 JOL [id number]) Pain Reassessment Is This A Pain ReAssessment? No Sleep Is patient sleeping during reassessment? 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 No Sleep Is patient sleeping during reassessment? 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 Description Intensity of Pain at present 6 IVP Administration Document 07/23/17 21:40 JOL (Rec: 07/23/17 21:40 [id number]) Charges for Administration # of IVP Administrations 1 Metoclopramide HCl (Reglan) 10 mg IVP STAT STA Stop: 07/23/17 18:17 Last Admin: 07/23/17 19:40 Dose: 10 mg IVP Administration Document 07/23/17 19:40 MEGAN (Rec: 07/23/17 19:40 ZACKERY [id number]) Charges for Administration # of IVP Administrations 1 Disposition/Present on Arrival - Present on Arrival Any Indicators Present on Arrival: No History of DVT/PE: No History of Uncontrolled Diabetes: No Urinary Catheter: No History Surgical Site Infection Following: None - Disposition Have Diagnosis and Disposition been Completed?: Yes Diagnosis: Headache Disposition: HOME/ ROUTINE Disposition Time: 21:45 Patient Plan: Discharge Patient Problems: Current Active Problems Problem Status Onset Headache Acute Condition: IMPROVED Discharge Instructions (ExitCare): Acute Headache (ED) Additional Instructions: Ms Bates, thank you for letting us take care of you today. Your provider was Dr. Molina. You were treated for Headache. The emergency medical care you received today was directed at your acute symptoms. If you were prescribed any medication, please fill it and take as directed. It may take several days for your symptoms to resolve. Return to the Emergency Department if your symptoms worsen, do not improve, or if you have any other problems. Please contact your doctor or call one of the physicians/clinics you have been referred to that are listed on the Patient Visit Information form that is included in your discharge packet. Bring any paperwork you were given at discharge with you along with any medications you are taking to your follow up visit. Our treatment cannot replace ongoing medical care by a primary care provider (PCP) outside of the emergency department. Thank you for allowing the eyeQ team to be part of your care today. If you had an X-Ray or CT scan: A Radiologist will review the ED reading if any change in treatment is needed we will contact you. If you had a blood, urine, or wound culture: It will take several days for the results, if any change in treatment is needed we will contact you. If you had an STI test: It will take 48 hours for the results. Please call after 1 week if you have not heard back. Referrals: Jerald Andersen MD [Primary Care Provider] - Follow up with primary Forms: [employer] (French), WORK NOTE
[2017-07-23 18:19] VITALS: RESP 16; TEMP 98.2
[2017-07-23 19:15] LABS: BASO # 0.03 K/mm3 (0.0-2.0); BASO % 0.4 % (0.0-3.0); EOS # 0.1 (0.0-0.7); EOS % 1.4 % (1.5-5.0); GRAN # 4.1 (1.4-6.5); GRAN % 58.5 % (50.0-68.0); HEMATOCRIT 39.2 % (36.0-48.0); LYMPH # 2.4 (1.2-3.4); LYMPH % 34.1 % (22.0-35.0); MEAN CELL VOLUME 95.4 fl (80.0-105.0); MEAN CORPUSCULAR HEMOGLOBIN 32.4 pg (25.0-35.0); MEAN CORPUSCULAR HGB CONC 33.9 g/dl (31.0-37.0); MONO # 0.4 (0.1-0.6); MONO % 5.6 % (1.0-6.0); RED CELL DISTRIBUTION WIDTH 14.5 % (11.5-14.5)
[2017-07-23 19:25] LABS: VENOUS BLOOD GAS BASE EXCESS -2.4 mmol/L (0.0-2.0)
[2017-07-23 20:29] LABS: ALB/GLOB RATIO 1.6 (1.1-1.8); ALKALINE PHOSPHATASE 113 U/L (38-126); ALT/SGPT 27 U/L (7-56); AST/SGOT 19 U/L (14-36); BILIRUBIN,TOTAL 0.5 mg/dL (0.2-1.3); BLOOD UREA NITROGEN 16 mg/dL (7-21); CALCIUM 9.8 mg/dL (8.4-10.5); CARBON DIOXIDE 25 mmol/L (21-33); CHLORIDE 109 mmol/L (98-107); GFR AFRICAN-AMERICAN > 60; GLUCOSE,RANDOM 90 mg/dL (70-110); MAGNESIUM 2.2 mg/dL (1.7-2.2)
[2017-07-23 20:42] LABS: POTASSIUM 4.7 mmol/L (3.6-5.0); SODIUM 143 mmol/L (132-148)
--- NOTE | 2017-07-23 21:23 | CT ---
EXAM: CT Head Without Intravenous Contrast EXAM DATE/TIME: 07/23/2017 6:15 PM CLINICAL HISTORY: 62 years old, female; Pain; Headache; Tension; Additional info: Headache R/O ich TECHNIQUE: Axial computed tomography images of the head/brain without intravenous contrast. All CT scans at this facility use one or more dose reduction techniques, viz.: automated exposure control; ma/kV adjustment per patient size (including targeted exams where dose is matched to indication; i.e. head); or iterative reconstruction technique. COMPARISON: CT - HEAD W/O CONTRAST 2017-05-10 08:32 FINDINGS: Brain: Ventricles are normal in size and configuration. There is no midline shift. There is mild prominence of sulci and gyri. There are no focal masses. There are no focal hemorrhages. There is right occipital encephalomalacia, unchanged. There are no abnormal fluid collections. Soares-white differentiation is maintained. Ventricles: See above Bones/joints: Bones: Cranial vault is intact. Soft tissues: unremarkable Sinuses: There is no acute sinusitis. Mastoid air cells: Ears and mastoids: Middle ears and mastoids are unremarkable Orbits: Orbital contents are unremarkable. Dental: Streak artifact from dental appliance degrades image quality. IMPRESSION: Right occipital encephalomalacia, unchanged compared to the prior study, no acute intracranial abnormality
[2017-07-24 00:30] VITALS: BP 131/76; PULSE 68; O2SAT 97
--- NOTE | 2017-07-24 08:59 | RAD ---
HISTORY: Sepsis Patient COMPARISON: 06/04/2017 FINDINGS: LUNGS: No active pulmonary disease. PLEURA: No significant pleural effusion identified, no pneumothorax apparent. CARDIOVASCULAR: Normal. OSSEOUS STRUCTURES: No significant abnormalities. VISUALIZED UPPER ABDOMEN: Normal. OTHER FINDINGS: None. IMPRESSION: No active disease.
--- NOTE | 2017-07-24 20:04 | CARD ---
APPROVED REPORT EKG Measurement Heart [id number] <Conclusion> Normal sinus rhythm Normal ECG
== END 2017-07-23 21:48 | disposition home or self-care (01) ==
LOC: ED 17:43
DX: R51 Headache (principal); I10 Essential (primary) hypertension; M06.9 Rheumatoid arthritis, unspecified; Z87.891 Personal history of nicotine dependence
CPT/HCPCS: 70450; 71010; 80053; 82803; 83735; 85025; 93005; 96361; 96374; 96375; 99285; J1200; J1885; J2765; J7040

== ENCOUNTER 2017-12-03 08:43 | Inpatient (IN) | payer MEDICAID ==
[2017-12-03 08:55] VITALS: BMI 25.8
[2017-12-03] MEDS ORDERED: Sodium Chloride 0.9% 500 ML IV STA (09:19)
[2017-12-03] MEDS ORDERED: Morphine 2 mg/ml ISec IVP STA (09:19)
--- NOTE | 2017-12-03 09:24 | ED PDOC ---
Arrival/HPI - General Time Seen by Provider: 12/03/17 09:00 Historian: Patient - History of Present Illness Narrative History of Present Illness (Text): 12/03/17 09:21 62yr old female presents today with rectal bleeding since sunday. pt states she had a large bowel movement on sunday with 1 episode of vomiting that was followed by large amount of rectal bleeding. pt states since sunday she has had continued rectal bleeding. pt states she has blood whenever she passes gas. pt states she hasnt had a bowel movement since sunday. pt denies dizziness. pt is c /o weakness and fatigue. pt is c/o lower abdominal pain greatest in the LLQ. pt denies fever/chills. no other complaints. Time/Duration: Other (4 days) Symptom Onset: Sudden Symptom Course: Unchanged Quality: Aching Severity Level: 6 Past Medical History - Provider Review Nursing Documentation Reviewed: Yes - Travel History Have you recently traveled outside [place] w/in the past 3 mons?: No - Infectious Disease Hx of Infectious Diseases: None - Tetanus Immunization Tetanus Immunization: Unknown - Cardiac Hx Hypertension: Yes Hx Mitral Valve Prolapse: Yes - Pulmonary Hx Respiratory Disorders: Yes Hx Pneumonia: Yes (multiple times) Other/Comment: double pneumonia, pneumonia as a child, walking pneumonia, scar tissue from pneumonia - Neurological HX Cerebrovascular Accident: Yes (09/2016 residual loss of words "sometimes") Hx Dizziness: Yes Hx Seizures: Yes Other/Comment: 09/2016 was vomiting x 3 days got up to go to the bathroom blacked out then regained consciousness called 911 pt suffered a hemorrhagic stroke, pt suffers from chronic headaches but they have worsened ever since cva - HEENT Hx HEENT Disorder: Yes (eyeglasses denies diplopia) - Renal Hx Renal Disorder: Yes Hx Kidney Stones: Yes (left kidney stone at 21 years old.[facility] [employer]ONES) Hx Pyelonephritis: Yes - Endocrine/Metabolic Hx Endocrine Disorders: No - Hematological/Oncological Hx Blood Disorders: No - Integumentary Hx Dermatological Disorder: Yes (tatoo) - Musculoskeletal/Rheumatological Hx Musculoskeletal Disorders: Yes (scoliosis) Hx Arthritis: Yes (rheumatoid arthritis) Hx Back Pain: Yes ("bone on bone" stated pt) Hx Falls: Yes (syncope and collapse) Hx Unsteady Gait: Yes - Gastrointestinal Hx Gastrointestinal Disorders: Yes Hx Gall Bladder Disease: Yes Hx Gastroesophageal Reflux: Yes - Genitourinary/Gynecological Hx Genitourinary Disorders: No - Psychiatric Hx Psychophysiologic Disorder: Yes Hx Depression: Yes Hx Panic Disorder: Yes Hx Substance Use: No - Surgical History Hx Cholecystectomy: Yes (and removal of 10 gallstones) Hx Orthopedic Surgery: Yes (right knee torn meniscus) - Anesthesia Hx Anesthesia: Yes Hx Anesthesia Reactions: No Hx Malignant Hyperthermia: No - Suicidal Assessment Feels Threatened In Home Enviroment: No Family/Social History - Physician Review Nursing Documentation Reviewed: Yes Family/Social History: Unknown Family HX Smoking Status: Former Smoker Hx Alcohol Use: No Hx Substance Use: No Hx Substance Use Treatment: No Allergies/Home Meds Allergies/Adverse Reactions: Allergies No Known Allergies Allergy (Verified 12/03/17 09:16) Home Medications: Home Meds Medication Instructions Recorded Confirmed Mirtazapine [Remeron] 30 mg PO BID 07/10/13 05/10/17 Pantoprazole Sodium [Protonix] 40 mg PO DAILY 11/13/16 05/10/17 Lisinopril [Zestril] 5 mg PO DAILY 03/09/17 05/10/17 QUEtiapine [SEROquel] 50 mg PO DAILY 03/09/17 05/10/17 Acetaminophen/Butalbital/Caf 1 tab PO PRN PRN 05/10/17 05/10/17 [Fioricet] Cholecalciferol [Vitamin D 1000 IU] 50,000 units PO .WEEKLY 05/10/17 05/10/17 clonazePAM [Klonopin] 0.5 mg PO TID PRN 05/10/17 05/10/17 oxyCODONE/Acetaminophen [Percocet 1 tab PO TID 05/10/17 05/10/17 5/325 mg Tab] Review of Systems - Review of Systems Constitutional: Fatigue. absent: Fevers Respiratory: absent: SOB, Cough Cardiovascular: absent: Chest Pain, Palpitations Gastrointestinal: Abdominal Pain, Vomiting, Hematochezia. absent: Constipation , Diarrhea, Nausea, Hematemesis Genitourinary Female: absent: Dysuria, Frequency, Hematuria Musculoskeletal: absent: Arthralgias, Back Pain, Neck Pain Skin: absent: Rash, Pruritis Neurological: absent: Headache, Dizziness Psychiatric: absent: Anxiety, Depression Physical Exam Vital Signs Reviewed: Yes Vital Signs Temp Pulse Resp BP Pulse Ox 12/03/17 13:12 60 18 98/64 L 98 12/03/17 10:44 76 18 110/69 98 12/03/17 08:50 98 F 78 18 114/51 L 98 Temperature: Afebrile Blood Pressure: Normal Pulse: Regular Respiratory Rate: Normal Appearance: Positive for: Well-Appearing, Non-Toxic, Comfortable Pain Distress: None Mental Status: Positive for: Alert and Oriented X 3 - Systems Exam Head: Present: Atraumatic Mouth: Present: Moist Mucous Membranes, Normal Tounge. No: Drooling, Trismus Pharnyx: Present: Normal. No: ERYTHEMA, EXUDATE, TONSILS ENLARGED Nose (External): Present: Atraumatic Nose (Internal): Present: Normal Inspection Neck: Present: Normal Range of Motion Respiratory/Chest: Present: Clear to Auscultation, Good Air Exchange. No: Respiratory Distress, Accessory Muscle Use Cardiovascular: Present: Regular Rate and Rhythm, Normal S1, S2. No: Murmurs Abdomen: No: Tenderness, Distention, Peritoneal Signs, Rebound, Guarding Rectal: Present: Gross Blood. No: Rectal Tenderness, Hemorrhoids, Fissures Back: Present: Normal Inspection Upper Extremity: Present: Normal ROM Lower Extremity: Present: Normal ROM Neurological: Present: GCS=15, Speech Normal Skin: Present: Warm, Dry, Normal Color. No: Rashes Psychiatric: Present: Alert, Oriented x 3 Medical Decision Making ED Course and Treatment: 12/03/17 10:01 Patient is nontoxic well appearing with stable vital signs presenting with abdominal pain and rectal bleeding x 4 days. CBC wnl CMP wnl Lipase wnl pt/inr: wnl ptt: wnl type and screen. Pt given NS iv bolus; Urinalysis: CAT scan: FINDINGS: LOWER THORAX: Unremarkable. LIVER: Unremarkable. No gross lesion or ductal dilatation. GALLBLADDER AND BILE DUCTS: Gallbladder removed PANCREAS: Unremarkable. No gross lesion or ductal dilatation. SPLEEN: Unremarkable. ADRENALS: Unremarkable. No mass. KIDNEYS AND URETERS: Unremarkable. No hydronephrosis. No solid mass. VASCULATURE: Unremarkable. No aortic aneurysm. BOWEL: There is mural thickening in the descending and sigmoid colon with multiple diverticula. Minimal stranding of the fat planes is seen. Findings are consistent with mild diverticulitis APPENDIX: Normal appendix. PERITONEUM: Unremarkable. No free fluid. No free air. LYMPH NODES: Unremarkable. No enlarged lymph nodes. BLADDER: Unremarkable. REPRODUCTIVE: Unremarkable. BONES: No acute fracture. OTHER FINDINGS: None. IMPRESSION: There is mural thickening in the descending and sigmoid colon with multiple diverticula. Minimal stranding of the fat planes is seen. Findings are consistent with mild diverticulitis Patient reassessment: pt is feeling better; resting comfortably. Discussed all results with patient in depth case discussed with dr. andersen: accepts admission for rectal bleeding and diverticulitis. all aspects of this case were discussed the attending of record. Impression: diverticulitis, rectal bleeding admit to med/surg - Lab Interpretations Lab Results: 12/03/17 09:45 12/03/17 09:45 Lab Results 12/03/17 11:50: Urine Color Light yellow, Urine Appearance Clear, Urine pH 6.5, Ur Specific [place] <= 1.005, Urine Protein Negative, Urine Glucose (UA) Negative, Urine Ketones Negative, Urine Blood Negative, Urine Nitrate Negative, Urine Bilirubin Negative, Urine Urobilinogen 0.2, Ur Leukocyte Esterase Negative 12/03/17 11:50: Blood Type AB POSITIVE, Antibody Screen Negative, BBK History Checked No verified bt 12/03/17 09:45: WBC 9.4 D, RBC 4.03, Hgb 12.8, Hct 37.7, MCV 93.5, MCH 31.8, MCHC 34.0, RDW 13.9, Plt Count 247, MPV 9.9, Gran % 75.3 H, Lymph % (Auto) 17.7 L, [place] % (Auto) 6.4 H, Eos % (Auto) 0.4 L, Baso % (Auto) 0.2, Gran # 7.09 H, Lymph # (Auto) 1.7, [place] # (Auto) 0.6, Eos # (Auto) 0.0, Baso # (Auto) 0.02 12/03/17 09:45: Sodium 144, Potassium 3.6, Chloride 106, Carbon Dioxide 26, Anion Gap 16, BUN 11, Creatinine 1.0, Est GFR ( Amer) > 60, Est GFR (Non- Af Amer) 56, Random Glucose 106, Calcium 10.0, Total Bilirubin 0.3, AST 26, ALT 26, Alkaline Phosphatase 108, Total Protein 7.2, Albumin 3.9, Globulin 3.3, Albumin/Globulin Ratio 1.2, Lipase 35 12/03/17 09:45: PT 12.0, INR 1.04, APTT 27.0 - RAD Interpretation Radiology Orders: 12/03/17 09:18 ABD & PELVIS IV CONTRAST ONLY [CT] Stat - Medication Orders Current Medication Orders: Ceftriaxone Sodium (Rocephin 1 Gram Ivpb) 1 gm in 100 mls @ 100 mls/hr IVPB DAILY PAO PRN Reason: Protocol Discontinued Medications Sodium Chloride (Sodium Chloride 0.9%) 500 mls @ 999 mls/hr IV .Q31M STA Stop: 12/03/17 09:49 Last Admin: 12/03/17 09:55 Dose: 999 mls/hr eMAR Start Stop Document 12/03/17 09:55 [facility] (Rec: 12/03/17 09:55 [facility] [id number]) Intravenous Solution Start Date 12/03/17 Start Time 09:55 End Date 12/03/17 End time 10:25 Total Infusion Time 30 Metronidazole (Flagyl) 500 mg in 100 mls @ 100 mls/hr IVPB STAT STA PRN Reason: Protocol Stop: 12/03/17 13:42 Last Admin: 12/03/17 13:07 Dose: 100 mls/hr eMAR Start Stop Document 12/03/17 13:07 [facility] (Rec: 12/03/17 13:07 [facility] [id number]) Intravenous Solution Start Date 12/03/17 Start Time 13:07 End Date 12/03/17 End time 14:07 Total Infusion Time 60 Pantoprazole Sodium (Protonix Inj) 40 mg IVP STAT STA Stop: 12/03/17 10:27 Last Admin: 12/03/17 11:37 Dose: 40 mg IVP Administration Document 12/03/17 11:37 [facility] (Rec: 12/03/17 11:37 [facility] [id number]) Charges for Administration # of IVP Administrations 1 Disposition/Present on Arrival - Present on Arrival Any Indicators Present on Arrival: No History of DVT/PE: No History of Uncontrolled Diabetes: No Urinary Catheter: No History Surgical Site Infection Following: None - Disposition Have Diagnosis and Disposition been Completed?: Yes Diagnosis: Diverticulitis, Rectal bleed Disposition: HOSPITALIZED Disposition Time: 14:05 Patient Plan: Admission, Telemetry (remote) Condition: FAIR Referrals: Jerlad Andersen MD [Primary Care Provider] - Follow up with primary
[2017-12-03 09:58] LABS: BASO # 0.02 K/mm3 (0.0-2.0); BASO % 0.2 % (0.0-3.0); EOS % 0.4 % (1.5-5.0); GRAN # 7.09 (1.4-6.5); GRAN % 75.3 % (50.0-68.0); HEMOGLOBIN 12.8 g/dL (12.0-16.0); LYMPH # 1.7 (1.2-3.4); LYMPH % 17.7 % (22.0-35.0); MEAN CELL VOLUME 93.5 fl (80.0-105.0); MEAN CORPUSCULAR HEMOGLOBIN 31.8 pg (25.0-35.0); MEAN PLATELET VOLUME 9.9 fl (7.0-11.0); MONO # 0.6 (0.1-0.6); MONO % 6.4 % (1.0-6.0); RBC 4.03 10^6/uL (3.5-6.1); RED CELL DISTRIBUTION WIDTH 13.9 % (11.5-14.5); WHITE BLOOD COUNT 9.4 10^3/ul (4.5-11.0)
[2017-12-03 10:11] LABS: ALB/GLOB RATIO 1.2 (1.1-1.8); ALBUMIN 3.9 g/dL (3.0-4.8); ALT/SGPT 26 U/L (7-56); AST/SGOT 26 U/L (14-36); BLOOD UREA NITROGEN 11 mg/dL (7-21); GFR AFRICAN-AMERICAN > 60; GFR NON-AFRICAN AMERICAN 56; LIPASE 35 U/L (23-300)
[2017-12-03 10:14] LABS: INR 1.04 (0.93-1.08)
[2017-12-03] MEDS ORDERED: Iohexol 350 MG/100 ML VIAL ONE (10:23)
[2017-12-03 12:04] LABS: PH,URINE 6.5 (4.7-8.0); URINE BILIRUBIN NEGATIVE (NEGATIVE); URINE BLOOD NEGATIVE (NEGATIVE); URINE GLUCOSE (UA) NEGATIVE (NEGATIVE); URINE LEUKOCYTE ESTERASE NEGATIVE Leu/uL (NEGATIVE); URINE PROTEIN NEGATIVE mg/dL (<30 mg/dL); URINE UROBILINOGEN 0.2 E.U./dL (<1 E.U./dL)
[2017-12-03 12:09] LABS: URINE APPEARANCE CLEAR (CLEAR); URINE COLOR LIGHT YELLOW (YELLOW)
--- NOTE | 2017-12-03 12:26 | CT ---
PROCEDURE: CT Abdomen and Pelvis with contrast HISTORY: abd pain/rectal bleeding COMPARISON: None. TECHNIQUE: Contrast dose: 100 cc of Omni 350 Radiation dose: Total exam DLP = 521 mGy-cm. This CT exam was performed using one or more of the following dose reduction techniques: Automated exposure control, adjustment of the mA and/or kV according to patient size, and/or use of iterative reconstruction technique. FINDINGS: LOWER THORAX: Unremarkable. LIVER: Unremarkable. No gross lesion or ductal dilatation. GALLBLADDER AND BILE DUCTS: Gallbladder removed PANCREAS: Unremarkable. No gross lesion or ductal dilatation. SPLEEN: Unremarkable. ADRENALS: Unremarkable. No mass. KIDNEYS AND URETERS: Unremarkable. No hydronephrosis. No solid mass. VASCULATURE: Unremarkable. No aortic aneurysm. BOWEL: There is mural thickening in the descending and sigmoid colon with multiple diverticula. Minimal stranding of the fat planes is seen. Findings are consistent with mild diverticulitis APPENDIX: Normal appendix. PERITONEUM: Unremarkable. No free fluid. No free air. LYMPH NODES: Unremarkable. No enlarged lymph nodes. BLADDER: Unremarkable. REPRODUCTIVE: Unremarkable. BONES: No acute fracture. OTHER FINDINGS: None. IMPRESSION: There is mural thickening in the descending and sigmoid colon with multiple diverticula. Minimal stranding of the fat planes is seen. Findings are consistent with mild diverticulitis
[2017-12-03] MEDS ORDERED: metroNIDAZOLE IV 500 mg/100 ml 500 MG/100 ML BAG IVPB STA (12:43)
--- NOTE | 2017-12-03 14:16 | CARD ---
APPROVED REPORT EKG Measurement Heart [id number] CT 180P28 [id number] <Conclusion> Normal sinus rhythm PRWP Cannot rule out Anterior infarct, age undetermined NSSTW changes
[2017-12-03] MEDS: cefTRIAXone 1 gm 1 GM/100 ML BAG IVPB SCH (15:07)
[2017-12-03] MEDS ORDERED: Apap-Butalbital-Caffeine 325-50-40mg Tab PO PRN (20:11)
[2017-12-03 20:39] LABS: BASO # 0.02 K/mm3 (0.0-2.0); BASO % 0.2 % (0.0-3.0); EOS # 0.1 (0.0-0.7); EOS % 1.4 % (1.5-5.0); GRAN # 6.69 (1.4-6.5); GRAN % 65.3 % (50.0-68.0); HEMOGLOBIN 11.9 g/dL (12.0-16.0); LYMPH # 2.8 (1.2-3.4); MEAN CELL VOLUME 93.3 fl (80.0-105.0); MEAN CORPUSCULAR HEMOGLOBIN 31.8 pg (25.0-35.0); MEAN CORPUSCULAR HGB CONC 34.1 g/dl (31.0-37.0); MEAN PLATELET VOLUME 9.6 fl (7.0-11.0); MONO # 0.6 (0.1-0.6); MONO % 6.1 % (1.0-6.0); RBC 3.74 10^6/uL (3.5-6.1); WHITE BLOOD COUNT 10.3 10^3/ul (4.5-11.0)
[2017-12-03] MEDS: metroNIDAZOLE IV 500 mg/100 ml 500 MG/100 ML BAG IVPB SCH (22:28)
[2017-12-03] MEDS ORDERED: Pneumococcal 23-Valent Vaccine IM ONE (22:49)
[2017-12-04] MEDS: metroNIDAZOLE IV 500 mg/100 ml 500 MG/100 ML BAG IVPB SCH ×3 (05:48→21:58)
[2017-12-04 08:04] VITALS: RESP 18
[2017-12-04] MEDS ORDERED: HYDROmorphone 0.5 mg/0.5 ml ISec IVP PRN (08:47)
[2017-12-04] MEDS: Pantoprazole 40 mg EC Tab PO SCH (09:47)
[2017-12-04] MEDS: cefTRIAXone 1 gm 1 GM/100 ML BAG IVPB SCH (09:47)
[2017-12-04] MEDS: Morphine 4 mg/ml ISec IV PRN ×2 (09:53→16:21)
--- NOTE | 2017-12-04 15:13 | HP ---
HISTORY OF PRESENT ILLNESS: A 62-year-old white female admitted on 12/03/2017. The patient has a history of seizure disorder, history of CVA in the past. The patient had some abdominal pain associated with nausea and vomiting and left lower quadrant pain associated with rectal bleeding, constipation, came to the emergency room after passing large amount of jean paul red blood per rectum and found to be guaiac-positive in the ER, had a CT of the abdomen and pelvis done, which showed diverticulitis. The patient had slightly elevated white count and was admitted to hospital for IV antibiotics and IV hydration and to follow her blood count. The patient denies any change in bowel habits recently, denies ever having a colonoscopy in the past. She is a nonsmoker, nondrinker. The patient has a long history of chronic headaches, on headache medication from her neurologist. She is also on Keppra for seizure control and clonazepam for anxiety, Lipitor, amlodipine for high blood pressure, and Seroquel for sleep. The patient has positive family history of diverticulitis. No history of colon cancer. She has no recent travel history. Episodes started approximately 3 or 4 days prior to admission. PHYSICAL EXAMINATION: GENERAL: Shows a well-developed, thin white female, in no apparent distress. HEENT: Essentially within normal limits. HEART: Regular sinus rhythm. No S3 or murmurs. CHEST: Clear to auscultation and percussion. ABDOMEN: Mildly distended. Bowel sounds are normoactive. There is tenderness in the left lower quadrant. There is no rebound or guarding and no masses palpable. EXTREMITIES: Without any cyanosis, clubbing, or edema. NEUROLOGIC: Sensation is grossly intact. IMPRESSION: A 62-year-old white female presenting with first episode of diverticulitis with diverticular bleeding, history of headache, transient ischemic attack, and seizure disorder in the past. PLAN: Low residual diet, IV hydration, IV antibiotics, GI consultation, and followup colonoscopy in approximately 2 months. Jerald Andersen MD
--- NOTE | 2017-12-04 16:58 | CP.PCM.CON ---
<Kaleigh Marte - Last Filed: 12/04/17 19:14> History of Present Illness - History of Present Illness History of Present Illness: Seen and examined at the bedside earlier today, chart reviewed. Request for GI consult is for rectal bleeding and diverticulitis. HPI: This is a 62-year-old female with a past medical history of hemorrhagic CVA in 09/2016, hypertension, esophageal ulcers came to the emergency room with complaints of abdominal pain and rectal bleeding. Patient endorses that on Sunday she had sudden onset of severe lower abdominal pain , went to the bathroom, urge to have a bowel movement but nothing came out, she knew not to strain she was massaging her belly and finally had solid stool with blood, she did complain of nausea and vomited once felt lightheaded and laid herself on the floor, patient denies passing out. Then she reported sleeping all day Sunday and noted that she had to urinate and it appeared orange at the time but now urinating clear urine, no dysuria. She also complained of passing gas and noting blood. Then on Sunday she still continued to have some bloody discharge and described it as being "clumps" of blood, she did have some chills but no further nausea or vomiting. She complains of feeling weak and fatigued. Patient only recalls having Tumeric tea prior to these symptoms starting. She also had recent oral surgery about a month ago and denies any history of antibiotic use. No complaints of any weight loss or loss of appetite. She denies history of constipation or diarrhea. She occasionally has some reflux and is on Nexium 40 mg. Her last endoscopy was done in [address] Denson for vomiting and she was found to have esophageal ulcer, esophagitis and gastritis. She has never had a colonoscopy. On admission she had a CT scan of abdomen and pelvis and this showed descending and sigmoid thickening consistent with mild diverticulitis. Past medical history: Hypertension, mitral valve prolapse, pneumonia, hemorrhagic CVA (09/2016), seizures, renal stones, rheumatoid arthritis, GERD, esophageal ulcer, scoliosis Past surgical history: Cholecystectomy, right knee surgery for meniscus tear Allergies: Family history: Mother, sister and cousin with Crohn's disease Medications: Reviewed as per MAR Social history: Denies smoking, EtOH or illicit drugs ROS: Systems reviewed positive finding see HPI. Past Patient History - Infectious Disease Hx of Infectious Diseases: None - Tetanus Immunizations Tetanus Immunization: Unknown - Past Social History Smoking Status: Former Smoker - CARDIAC Hx Hypercholesterolemia: Yes Hx Hypertension: Yes Hx Mitral Valve Prolapse: Yes - PULMONARY Hx Respiratory Disorders: Yes Hx Pneumonia: Yes (multiple times) Other/Comment: double pneumonia, pneumonia as a child, walking pneumonia, scar tissue from pneumonia - NEUROLOGICAL Hx Neurological Disorder: (syncope and collapse) HX Cerebrovascular Accident: Yes (09/2016 residual loss of words "sometimes") Hx Dizziness: Yes Hx Seizures: (pt uncertain) Other/Comment: 09/2016 was vomiting x 3 days got up to go to the bathroom blacked out then regained consciousness called 911 pt suffered a hemorrhagic stroke, pt suffers from chronic headaches but they have worsened ever since cva - HEENT Hx HEENT Problems: Yes (eyeglasses denies diplopia) - RENAL Hx Chronic Kidney Disease: Yes Hx Kidney Stones: Yes (left kidney stone at 21 years old.PASSES STONES) Hx Pyelonephritis: Yes - ENDOCRINE/METABOLIC Hx Endocrine Disorders: No - HEMATOLOGICAL/ONCOLOGICAL Hx Blood Disorders: No - INTEGUMENTARY Hx Dermatological Problems: Yes (tatoo) - MUSCULOSKELETAL/RHEUMATOLOGICAL Hx Musculoskeletal Disorders: Yes (scoliosis) Hx Arthritis: Yes (rheumatoid arthritis) Hx Back Pain: Yes ("bone on bone" stated pt) Hx Falls: Yes (10/10/16 cva) Hx Unsteady Gait: Yes - GASTROINTESTINAL Hx Gastrointestinal Disorders: Yes (rectal bleeding) Hx Diverticulitis: (pt uncertain) Hx Gall Bladder Disease: Yes (gb sx and 10 stones removed) Hx Gastroesophageal Reflux: Yes Hx Ulcer: Yes Other/Comment: oral sx in october 05 teeth extracted due to gum disease - GENITOURINARY/GYNECOLOGICAL Hx Genitourinary Disorders: No - PSYCHIATRIC Hx Psychophysiologic Disorder: Yes Hx Anxiety: Yes Hx Panic Symptoms: Yes Hx Substance Use: No - SURGICAL HISTORY Hx Cholecystectomy: Yes (and removal of 10 gallstones) Hx Orthopedic Surgery: Yes (right knee torn meniscus) - ANESTHESIA Hx Anesthesia: Yes Hx Anesthesia Reactions: No Hx Malignant Hyperthermia: No Meds Allergies/Adverse Reactions: Allergies Allergy/AdvReac Type Severity Reaction Status Date / Time No Known Allergies Allergy Verified 12/03/17 09:16 - Medications Medications: Current Medications Acetaminophen/Butalbital/Caffeine (Fioricet) 1 tab PO Q6H PRN PRN Reason: Migraine headache Last Admin: 12/03/17 22:36 Dose: 1 tab Amlodipine Besylate (Norvasc) 2.5 mg PO DAILY [facility] Last Admin: 12/04/17 09:46 Dose: 2.5 mg Atorvastatin Calcium (Lipitor) 20 mg PO HS [facility] Last Admin: 12/03/17 23:52 Dose: Not Given Clonazepam (Klonopin) 0.5 mg PO TID PRN; Protocol PRN Reason: Anxiety Last Admin: 12/03/17 22:35 Dose: 0.5 mg Ceftriaxone Sodium (Rocephin 1 Gram Ivpb) 1 gm in 100 mls @ 100 mls/hr IVPB DAILY [facility] PRN Reason: Protocol Last Admin: 12/04/17 09:47 Dose: 100 mls/hr Metronidazole (Flagyl) 500 mg in 100 mls @ 100 mls/hr IVPB Q8 PAO PRN Reason: Protocol Last Admin: 12/04/17 15:10 Dose: 100 mls/hr Levetiracetam (Keppra) 500 mg PO BID [facility] Last Admin: 12/04/17 09:47 Dose: 500 mg Lisinopril (Zestril) 5 mg PO DAILY [facility] Last Admin: 12/04/17 09:46 Dose: 5 mg Mirtazapine (Remeron) 30 mg PO HS [facility] Morphine Sulfate (Morphine) 3 mg IV Q6H PRN PRN Reason: Pain, severe (8-10) Last Admin: 12/04/17 16:21 Dose: 3 mg Pantoprazole Sodium (Protonix Ec Tab) 40 mg PO DAILY [facility] Last Admin: 12/04/17 09:47 Dose: 40 mg Quetiapine Fumarate (Seroquel) 50 mg PO DAILY [facility] Last Admin: 12/04/17 09:46 Dose: 50 mg Physical Exam - Constitutional Appears: No Acute Distress - Head Exam Head Exam: NORMOCEPHALIC - Eye Exam Eye Exam: Normal appearance. absent: Scleral icterus Pupil Exam: NORMAL ACCOMODATION - ENT Exam ENT Exam: Mucous Membranes Moist - Neck Exam Neck exam: Positive for: Normal Inspection - Respiratory Exam Respiratory Exam: NORMAL BREATHING PATTERN. absent: Respiratory Distress - Cardiovascular Exam Cardiovascular Exam: +S1, +S2 - GI/Abdominal Exam GI & Abdominal Exam: Normal Bowel Sounds, Soft, Tenderness (diffuse to lower abdomen but mostly in left lower quadrant). absent: Guarding, Rebound - Extremities Exam Extremities exam: Positive for: pedal pulses present. Negative for: calf tenderness, pedal edema - Neurological Exam Neurological exam: Alert, Oriented x3 Results - Vital Signs Recent Vital Signs: Last Vital Signs Temp 97.6 F 12/04/17 08:04 Pulse 60 12/04/17 09:46 Resp 18 12/04/17 08:04 BP 113/61 12/04/17 09:46 Pulse Ox 95 12/04/17 08:04 - Labs Result Diagrams: 12/03/17 20:36 12/03/17 09:45 Labs: Laboratory Results - last 24 hr 12/03/17 12/03/17 20:36 20:36 WBC 10.3 RBC 3.74 Hgb 11.9 L Hct 34.9 L MCV 93.3 MCH 31.8 MCHC 34.1 RDW 14.0 Plt Count 244 MPV 9.6 Gran % 65.3 Lymph % (Auto) 27.0 Atlantic % (Auto) 6.1 H Eos % (Auto) 1.4 L Baso % (Auto) 0.2 Gran # 6.69 H Lymph # (Auto) 2.8 [place] # (Auto) 0.6 Eos # (Auto) 0.1 Baso # (Auto) 0.02 Blood Type Confirm AB POSITIVE Assessment & Plan - Assessment and Plan (Free Text) Assessment: Assessment: Acute diverticulitis Rectal bleeding, differentials to consider is ischemic colitis, infectious, inflammatory History of hemorrhagic CVA History of esophageal ulcer GERD Hypertension Plan: Continue full liquid diet, advance as tolerated Monitor H&H and further GI bleed Continue IV antibiotics ceftriaxone and Flagyl Continue PPI stool cdiff, stool culture Pain management Discussed with patient she would benefit from colonoscopy in about 6 weeks' time after resolution of diverticulitis,or if continue rectal bleeding consider flexible sigmoidoscopy, also would benefit from an endoscopy in view of history of esophageal ulcer and on chronic PPI this can be done electively as outpatient , unless otherwise indicated. Thank you for this consult and for allowing us to participate in your patient's care, further recommendations based upon clinical course. Seen and discussed with Dr. Umanzor. <Werner Umanzor V - Last Filed: 12/04/17 23:26> Meds - Medications Medications: Current Medications Acetaminophen/Butalbital/Caffeine (Fioricet) 1 tab PO Q6H PRN PRN Reason: Migraine headache Last Admin: 12/03/17 22:36 Dose: 1 tab Amlodipine Besylate (Norvasc) 2.5 mg PO DAILY [facility] Last Admin: 12/04/17 09:46 Dose: 2.5 mg Atorvastatin Calcium (Lipitor) 20 mg PO HS [facility] Last Admin: 12/04/17 22:00 Dose: 20 mg Clonazepam (Klonopin) 0.5 mg PO TID PRN; Protocol PRN Reason: Anxiety Last Admin: 12/04/17 22:00 Dose: 0.5 mg Ceftriaxone Sodium (Rocephin 1 Gram Ivpb) 1 gm in 100 mls @ 100 mls/hr IVPB DAILY [facility] PRN Reason: Protocol Last Admin: 12/04/17 09:47 Dose: 100 mls/hr Metronidazole (Flagyl) 500 mg in 100 mls @ 100 mls/hr IVPB Q8 [facility] PRN Reason: Protocol Last Admin: 12/04/17 21:58 Dose: 100 mls/hr Levetiracetam (Keppra) 500 mg PO BID [facility] Last Admin: 12/04/17 17:12 Dose: 500 mg Lisinopril (Zestril) 5 mg PO DAILY [facility] Last Admin: 12/04/17 09:46 Dose: 5 mg Mirtazapine (Remeron) 30 mg PO HS [facility] Last Admin: 12/04/17 22:00 Dose: 30 mg Morphine Sulfate (Morphine) 3 mg IVP Q6H PRN PRN Reason: Pain, severe (8-10) Last Admin: 12/04/17 22:21 Dose: 3 mg Ondansetron HCl (Zofran Inj) 4 mg IVP Q6H PRN PRN Reason: Nausea/Vomiting Pantoprazole Sodium (Protonix Ec Tab) 40 mg PO DAILY [facility] Last Admin: 12/04/17 09:47 Dose: 40 mg Quetiapine Fumarate (Seroquel) 50 mg PO DAILY [facility] Last Admin: 12/04/17 09:46 Dose: 50 mg Results - Vital Signs Recent Vital Signs: Last Vital Signs Temp 98 F 12/04/17 16:00 Pulse 58 L 12/04/17 16:00 Resp 18 12/04/17 16:00 BP 123/69 12/04/17 16:00 Pulse Ox 97 12/04/17 16:00 - Labs Result Diagrams: 12/03/17 20:36 12/03/17 09:45 Attending/Attestation - Attestation I have personally seen and examined this patient.: Yes I have fully participated in the care of the patient.: Yes I have reviewed all pertinent clinical information: Yes Notes (Text): This is an addendum to GI progress report dictated by Kaleigh Marte APN.The patient was seen and examined earlier. Medical records, lab studies, imagings were reviewed. Last 24 hours events reviewed. Agreed with the above treatment plan as outlined in Kaleigh Marte APN's notes with the addition of the following On examination abdom is no mass minimal tenderness o left lower quadrant no rebound or guarding. CT scan was reviewe. lONG SEGMENT OF THE THICKENING NOTICED O WITH SOME VERY CHRONIC STRANDING. THIS FINDING IS MORE SUGGESTIVE OF COLITIS RATHER THAN DIVERTICULITIS continue clear liquidContinue antibioticsComplete the courseElective colonoscopy after 4 weeks Will discuss Shadia 12/04/17 23:17
[2017-12-04] MEDS ORDERED: Morphine 4 mg/ml ISec IVP PRN (17:57)
[2017-12-04 19:17] VITALS: PULSE 58; TEMP 98; O2SAT 97
[2017-12-04] MEDS ORDERED: Morphine 2 mg/ml ISec IVP PRN (22:21)
[2017-12-04] MEDS: Morphine 4 mg/ml ISec IVP PRN (22:21)
[2017-12-05] MEDS: metroNIDAZOLE IV 500 mg/100 ml 500 MG/100 ML BAG IVPB SCH (05:09)
[2017-12-05] MEDS: Morphine 4 mg/ml ISec IVP PRN (06:11)
[2017-12-05] MEDS: Pantoprazole 40 mg EC Tab PO SCH (09:42)
[2017-12-05 09:44] VITALS: BP 122/67
--- NOTE | 2017-12-05 16:39 | DS ---
HISTORY OF PRESENT ILLNESS: The patient is a 62-year-old white female admitted to the hospital with abdominal pain, was found to have diverticulitis versus acute colitis. The patient was treated with IV antibiotics. She is markedly improved today, less discomfort and pain. She is afebrile, vital signs are stable. White count is normal. The patient was seen in consultation by Dr. Umanzor. The patient will be treated with p.o. antibiotics at home and a low-fiber diet. Will be followed by colonoscopy in 4 to 8 weeks. The patient will be discharged home in improved condition, to be followed as an outpatient. FINAL DISCHARGE DIAGNOSES: Acute abdominal pain, diverticulitis, colitis in a patient who has history of seizures. Jerald Andersen MD
== END 2017-12-05 11:46 | disposition home or self-care (01) | DRG 175 ==
LOC: ED 08:43 → ERH 15:04 → 3RNO 17:27
PROVIDERS: ADMIT Internal Medicine; ATTEND Internal Medicine
DX: K57.31 Diverticulosis of large intestine without perforation or abscess with bleeding (principal); K52.9 Noninfective gastroenteritis and colitis, unspecified; G40.909 Epilepsy, unspecified, not intractable, without status epilepticus; K59.00 Constipation, unspecified; M41.9 Scoliosis, unspecified; K21.9 Gastro-esophageal reflux disease without esophagitis; E78.00 Pure hypercholesterolemia, unspecified; I10 Essential (primary) hypertension; I34.1 Nonrheumatic mitral (valve) prolapse; M06.9 Rheumatoid arthritis, unspecified; K29.70 Gastritis, unspecified, without bleeding; K22.10 Ulcer of esophagus without bleeding; Z86.73 Personal history of transient ischemic attack (TIA), and cerebral infarction without residual deficits; Z87.01 Personal history of pneumonia (recurrent); Z87.442 Personal history of urinary calculi; Z90.49 Acquired absence of other specified parts of digestive tract; Z87.891 Personal history of nicotine dependence

== ENCOUNTER 2018-11-10 16:40 | Emergency (ER) | payer MEDICAID ==
[2018-11-10 16:41] VITALS: BMI 25.8
[2018-11-10] MEDS ORDERED: Sodium Chloride 0.9% 500 ML IV ONE (16:59)
[2018-11-10] MEDS ORDERED: DiphenhydrAMINE 50 mg/ml Inj IVP ONE (16:59)
--- NOTE | 2018-11-10 17:03 | ED PDOC ---
Arrival/HPI - General Chief Complaint: Allergic Reaction Time Seen by Provider: 11/10/18 16:51 Historian: Patient - History of Present Illness Time/Duration: Other Symptom Onset: Gradual (This morning) Symptom Course: Improving Severity Level: Moderate Activities at Onset: Rest Associated Symptoms (Text): 11/10/18 17:01 Patient reports that she woke up this morning with an erythematous swollen and severely itchy rash about her face and neck. She was doing a lot of cleaning with multiple qlikview developer around her house yesterday. She had a similar episode approximately 2 months ago, again when she was using multiple qlikview developer cleaning around her house. There is no dyspnea or dysphagia. She is extremely nervous and anxious. She reports that she had some palpitations which have since resolved. There is no dyspnea as alluded to in the triage notes. Past Medical History - Infectious Disease Hx of Infectious Diseases: None - Tetanus Immunization Tetanus Immunization: Unknown - Reproductive Menopause: No - Cardiac Hx Hypertension: Yes Hx Mitral Valve Prolapse: Yes - Pulmonary Hx Respiratory Disorders: Yes Hx Pneumonia: Yes (multiple times) Other/Comment: double pneumonia, pneumonia as a child, walking pneumonia, scar tissue from pneumonia - Neurological Hx Neurological Disorder: (syncope and collapse) HX Cerebrovascular Accident: Yes (09/2016 residual loss of words "sometimes") Hx Dizziness: Yes Hx Seizures: (pt uncertain) Other/Comment: 09/2016 was vomiting x 3 days got up to go to the bathroom blacked out then regained consciousness called 911 pt suffered a hemorrhagic stroke, pt suffers from chronic headaches but they have worsened ever since cva - HEENT Hx HEENT Disorder: Yes (eyeglasses denies diplopia) - Renal Hx Renal Disorder: Yes Hx Kidney Stones: Yes (left kidney stone at 21 years old.PASSES STONES) Hx Pyelonephritis: Yes - Endocrine/Metabolic Hx Endocrine Disorders: No - Hematological/Oncological Hx Blood Disorders: No - Integumentary Hx Dermatological Disorder: Yes (tatoo) - Musculoskeletal/Rheumatological Hx Musculoskeletal Disorders: Yes (scoliosis) Hx Arthritis: Yes (rheumatoid arthritis) Hx Back Pain: Yes ("bone on bone" stated pt) Hx Falls: Yes (10/10/16 cva) Hx Unsteady Gait: Yes - Gastrointestinal Hx Gastrointestinal Disorders: Yes (rectal bleeding) Hx Diverticulitis: (pt uncertain) Hx Gall Bladder Disease: Yes (gb sx and 10 stones removed) Hx Gastroesophageal Reflux: Yes Other/Comment: oral sx in october 05 teeth extracted due to gum disease - Genitourinary/Gynecological Hx Genitourinary Disorders: No - Psychiatric Hx Psychophysiologic Disorder: Yes Hx Anxiety: Yes Hx Panic Disorder: Yes Hx Substance Use: No - Surgical History Hx Cholecystectomy: Yes (and removal of 10 gallstones) Hx Orthopedic Surgery: Yes (right knee torn meniscus) - Anesthesia Hx Anesthesia: Yes Hx Anesthesia Reactions: No Hx Malignant Hyperthermia: No - Suicidal Assessment Feels Threatened In Home Enviroment: No Family/Social History - Physician Review Nursing Documentation Reviewed: Yes Family/Social History: Unknown Family HX Smoking Status: Former Smoker Hx Alcohol Use: No Hx Substance Use: No Hx Substance Use Treatment: No Allergies/Home Meds Allergies/Adverse Reactions: Allergies No Known Allergies Allergy (Verified 12/03/17 09:16) Home Medications: Home Meds Medication Instructions Recorded Confirmed Mirtazapine [Remeron] 30 mg PO BID 07/10/13 11/10/18 Acetaminophen/Butalbital/Caf 1 tab PO PRN PRN 05/10/17 11/10/18 [Fioricet] Cholecalciferol [Vitamin D 1000 IU] 50,000 units PO .WEEKLY 05/10/17 11/10/18 Review of Systems - Physician Review All systems were reviewed & negative as marked: Yes - Review of Systems Constitutional: absent: Fatigue, Fevers Respiratory: absent: SOB, Cough Cardiovascular: Palpitations. absent: Chest Pain, Syncope Gastrointestinal: absent: Abdominal Pain, Nausea, Vomiting Skin: Rash, Pruritis Physical Exam Vital Signs Temp Pulse Resp BP Pulse Ox 11/10/18 16:54 98.2 F 69 18 133/72 98 11/10/18 16:50 98.4 F 78 20 134/75 98 Temperature: Afebrile Blood Pressure: Normal Pulse: Regular Respiratory Rate: Normal Appearance: Positive for: Well-Appearing, Non-Toxic, Comfortable, Uncomfortable Pain Distress: None Mental Status: Positive for: Alert and Oriented X 3 - Systems Exam Head: Present: Atraumatic, Normocephalic Pupils: Present: PERRL Extroacular Muscles: Present: EOMI Conjunctiva: Present: Normal Ears: Present: NORMAL TM, Normal Canal. No: Erythema, TM Bulging Mouth: Present: Moist Mucous Membranes Pharnyx: No: ERYTHEMA, EXUDATE, TONSILS ENLARGED, Peritonsilar Swelling, Uvular Deviation, Soft Palate/Uvular Edema Nose (Internal): Present: Normal Inspection Respiratory/Chest: Present: Clear to Auscultation, Good Air Exchange. No: Respiratory Distress, Accessory Muscle Use, Wheezes Skin: Present: Rashes (Itchy erythematous swollen rash about the face and anterior neck. Rest of the skin is spared.) Medical Decision Making ED Course and Treatment: 11/10/18 17:04 EKG shows normal sinus rhythm rate approximately [address] or T wave changes. 11/10/18 17:54 Patient will be discharged home accompanied by friend to follow-up with PMD Dr. Andersen. She will be given a prescription for prednisone and is instructed to take Pepcid and Benadryl [id number]. She is instructed to find and avoid the allergen. - Medication Orders Current Medication Orders: Diphenhydramine HCl (Benadryl) 50 mg IVP ONCE ONE Stop: 11/10/18 17:00 Famotidine (Pepcid) 20 mg IVP STAT STA Stop: 11/10/18 17:00 Sodium Chloride (Sodium Chloride 0.9%) 500 mls @ 500 mls/hr IV ONCE ONE Stop: 11/10/18 17:58 Methylprednisolone (Solu-Medrol) 125 mg IVP ONCE ONE Stop: 11/10/18 17:00 Disposition/Present on Arrival - Present on Arrival Any Indicators Present on Arrival: No History of DVT/PE: No History of Uncontrolled Diabetes: No Urinary Catheter: No History of Decub. Ulcer: No History Surgical Site Infection Following: None - Disposition Have Diagnosis and Disposition been Completed?: Yes Diagnosis: Allergic reaction Disposition: HOME/ ROUTINE Disposition Time: 17:55 Patient Plan: Discharge Condition: GOOD Discharge Instructions (ExitCare): Allergy Testing, Skin Rash, Allergy Skin Testing Additional Instructions: Pepcid and Benadryl [id number] as directed on bottle. Follow-up with PMD and plant assigner. Follow-up in ER as needed. Prescriptions: predniSONE [predniSONE Tab] 20 mg PO DAILY #10 tab Forms: algrano ([place])
[2018-11-10 18:17] VITALS: BP 124/85; PULSE 75; RESP 19; TEMP 98; O2SAT 99
--- NOTE | 2018-11-11 09:50 | CARD ---
APPROVED REPORT Date of service: 11/10/2018 EKG Measurement Heart [id number] [place] 148P68 [id number] <Conclusion> Normal sinus rhythm Normal ECG
== END 2018-11-10 18:17 | disposition home or self-care (01) ==
LOC: ED 16:40
DX: T78.40XA Allergy, unspecified, initial encounter (principal); X58.XXXA Exposure to other specified factors, initial encounter; I10 Essential (primary) hypertension; I34.1 Nonrheumatic mitral (valve) prolapse; Z87.891 Personal history of nicotine dependence
CPT/HCPCS: 93005; 96361; 96374; 96375; 99284; J1200; J2930; J7040

== ENCOUNTER 2018-12-17 20:16 | Emergency (ER) | payer MEDICAID ==
[2018-12-17 20:18] VITALS: BMI 25.8
[2018-12-17 20:30] VITALS: BP 148/82; PULSE 86; RESP 18; TEMP 98.2; O2SAT 98
[2018-12-17] MEDS ORDERED: DiphenhydrAMINE 50 mg/ml Inj IM STA (21:12)
--- NOTE | 2018-12-17 21:25 | ED PDOC ---
Arrival/HPI - General Chief Complaint: Abnormal Skin Integrity Time Seen by Provider: 12/17/18 20:24 Historian: Patient - History of Present Illness Narrative History of Present Illness (Text): 63 year old female who presents to the ED for evaluation after noticing she has been breaking out in hives over the past few days. Patient reports she noticed 1 on her right foot, 1 on her right knee, bilateral wrists, and 1 to her left buttock. Patient states they erupt red, itchy, and swollen. Patient denies any fever, URI symptoms, sore throat, new medications, new foods, new soaps/lotions, changes to her daily habits, shortness of breath, or any other complaints. Time/Duration: < week Symptom Onset: Gradual Symptom Course: Unchanged Activities at Onset: Light Context: Home Past Medical History - Provider Review Nursing Documentation Reviewed: Yes - Infectious Disease Hx of Infectious Diseases: None - Tetanus Immunization Tetanus Immunization: Unknown - Cardiac Hx Hypertension: Yes Hx Mitral Valve Prolapse: Yes - Pulmonary Hx Respiratory Disorders: Yes Hx Pneumonia: Yes (multiple times) Other/Comment: double pneumonia, pneumonia as a child, walking pneumonia, scar tissue from pneumonia - Neurological Hx Neurological Disorder: (syncope and collapse) HX Cerebrovascular Accident: Yes (09/2016 residual loss of words "sometimes") Hx Dizziness: Yes Hx Seizures: (pt uncertain) Other/Comment: 09/2016 was vomiting x 3 days got up to go to the bathroom blacked out then regained consciousness called 911 pt suffered a hemorrhagic stroke, pt suffers from chronic headaches but they have worsened ever since cva - HEENT Hx HEENT Disorder: Yes (eyeglasses denies diplopia) - Renal Hx Renal Disorder: Yes Hx Kidney Stones: Yes (left kidney stone at 21 years old.PASSES STONES) Hx Pyelonephritis: Yes - Endocrine/Metabolic Hx Endocrine Disorders: No - Hematological/Oncological Hx Blood Disorders: No - Integumentary Hx Dermatological Disorder: Yes (tatoo) - Musculoskeletal/Rheumatological Hx Musculoskeletal Disorders: Yes (scoliosis) Hx Arthritis: Yes (rheumatoid arthritis) Hx Back Pain: Yes ("bone on bone" stated pt) Hx Falls: Yes (10/10/16 cva) Hx Unsteady Gait: Yes - Gastrointestinal Hx Gastrointestinal Disorders: Yes (rectal bleeding) Hx Diverticulitis: (pt uncertain) Hx Gall Bladder Disease: Yes (gb sx and 10 stones removed) Hx Gastroesophageal Reflux: Yes Other/Comment: oral sx in october 05 teeth extracted due to gum disease - Genitourinary/Gynecological Hx Genitourinary Disorders: No - Psychiatric Hx Psychophysiologic Disorder: Yes Hx Anxiety: Yes Hx Panic Disorder: Yes Hx Substance Use: No - Surgical History Hx Cholecystectomy: Yes (and removal of 10 gallstones) Hx Orthopedic Surgery: Yes (right knee torn meniscus) - Anesthesia Hx Anesthesia: Yes Hx Anesthesia Reactions: No Hx Malignant Hyperthermia: No - Suicidal Assessment Feels Threatened In Home Enviroment: No Family/Social History - Physician Review Nursing Documentation Reviewed: Yes Family/Social History: Unknown Family HX Smoking Status: Former Smoker Hx Alcohol Use: No Hx Substance Use: No Hx Substance Use Treatment: No Allergies/Home Meds Allergies/Adverse Reactions: Allergies No Known Allergies Allergy (Verified 12/17/18 20:30) Home Medications: Home Meds Medication Instructions Recorded Confirmed Mirtazapine [Remeron] 30 mg PO BID 07/10/13 11/10/18 Acetaminophen/Butalbital/Caf 1 tab PO PRN PRN 05/10/17 11/10/18 [Fioricet] Cholecalciferol [Vitamin D 1000 IU] 50,000 units PO .WEEKLY 05/10/17 11/10/18 Review of Systems - Physician Review All systems were reviewed & negative as marked: Yes - Review of Systems Constitutional: Normal. absent: Fevers Eyes: Normal ENT: Normal Respiratory: Normal. absent: SOB, Cough Cardiovascular: Normal. absent: Chest Pain Gastrointestinal: Normal. absent: Abdominal Pain, Diarrhea, Nausea, Vomiting Genitourinary Female: Normal Musculoskeletal: Normal. absent: Back Pain, Neck Pain Skin: Rash Neurological: Normal. absent: Headache, Dizziness Endocrine: Normal Hemo/Lymphatic: Normal Psychiatric: Normal Physical Exam Vital Signs Reviewed: Yes Vital Signs Temp Pulse Resp BP Pulse Ox 12/17/18 20:29 98.2 F 86 18 148/82 98 Temperature: Afebrile Blood Pressure: Normal Pulse: Regular Respiratory Rate: Normal Appearance: Positive for: Well-Appearing, Non-Toxic, Comfortable Pain Distress: None Mental Status: Positive for: Alert and Oriented X 3 - Systems Exam Head: Present: Atraumatic, Normocephalic Pupils: Present: PERRL Extroacular Muscles: Present: EOMI Conjunctiva: Present: Normal Mouth: Present: Moist Mucous Membranes Neck: Present: Normal Range of Motion Respiratory/Chest: Present: Clear to Auscultation, Good Air Exchange. No: Respiratory Distress, Accessory Muscle Use Cardiovascular: Present: Regular Rate and Rhythm, Normal S1, S2. No: Murmurs Abdomen: No: Tenderness, Distention, Peritoneal Signs Back: Present: Normal Inspection Upper Extremity: Present: Normal Inspection. No: Cyanosis, Edema Lower Extremity: Present: Normal Inspection. No: Edema Neurological: Present: GCS=15, CN II-XII Intact, Speech Normal Skin: Present: Warm, Dry, Normal Color, Other (Insect bites in various sizes to right foot, right knee, bilateral wrists, and left buttock. Largest on left buttock.). No: Rashes Psychiatric: Present: Alert, Oriented x 3, Normal Insight, Normal Concentration Medical Decision Making ED Course and Treatment: 12/17/18 21:18 Impression: 63 year old female complaining of hives to right foot, right knee, left buttock, and bilateral wrists. Plan: -- Benadryl -- Prednisone -- Reassess and disposition Progress Notes: Advised to follow up with primary care physician in 1-2 days without fail. Advised to take medication as prescribed. Return to the emergency room at any time for any new or worsening symptoms. Patient states she fully agrees with and understands discharge instructions. States that she agrees with the plan and disposition. Verbalized and repeated discharge instructions and plan. I have given the patient opportunity to ask any additional questions. - Medication Orders Current Medication Orders: Discontinued Medications Diphenhydramine HCl (Benadryl) 50 mg IM STAT STA Stop: 12/17/18 21:13 Prednisone (Prednisone Tab) 40 mg PO STAT STA Stop: 12/17/18 21:13 - PA / SENIOR PRIVATE CLIENT ADVISOR / Resident Statement MD/DO has reviewed & agrees with the documentation as recorded. - Scribe Statement The provider has reviewed the documentation as recorded by the Thu Olivier Provider Scribe Attestation: All medical record entries made by the Scribe were at my direction and personally dictated by me. I have reviewed the chart and agree that the record accurately reflects my personal performance of the history, physical exam, medical decision making, and the department course for this patient. I have also personally directed, reviewed, and agree with the discharge instructions and disposition. Disposition/Present on Arrival - Present on Arrival Any Indicators Present on Arrival: No History of DVT/PE: No History of Uncontrolled Diabetes: No Urinary Catheter: No History of Decub. Ulcer: No History Surgical Site Infection Following: None - Disposition Have Diagnosis and Disposition been Completed?: Yes Diagnosis: Insect bites Disposition: HOME/ ROUTINE Disposition Time: 21:15 Patient Plan: Discharge Patient Problems: Current Active Problems Problem Status Onset Insect bites Acute Condition: STABLE Discharge Instructions (ExitCare): Insect Bites and Stings (DC) Additional Instructions: Thank you for letting us take care of you today. You were treated for insect bites. The emergency medical care you received today was directed at your acute symptoms. If you were prescribed any medication, please fill it and take as directed. It may take several days for your symptoms to resolve. Return to the Emergency Department if your symptoms worsen, do not improve, or if you have any other problems. Please contact your doctor in 2 days for re-evaluation and follow up. Bring any paperwork you were given at discharge with you along with any medications you are taking to your follow up visit. Our treatment cannot replace ongoing medical care by a primary care provider (PCP) outside of the emergency department. Thank you for allowing the [facility] team to be part of your care today. Prescriptions: Cetirizine HCl [Zyrtec] 10 mg PO DAILY #30 capsule Hydrocortisone Shellie 0.2% Cr [Westcort] 1 ea TP BID #15 tube predniSONE [predniSONE Tab] 40 mg PO DAILY #8 tab Forms: [employer] ([place]), WORK NOTE
== END 2018-12-17 21:57 | disposition home or self-care (01) ==
LOC: ED 20:16
DX: S90.861A Insect bite (nonvenomous), right foot, initial encounter (principal); S80.261A Insect bite (nonvenomous), right knee, initial encounter; S30.860A Insect bite (nonvenomous) of lower back and pelvis, initial encounter; S60.862A Insect bite (nonvenomous) of left wrist, initial encounter; S60.861A Insect bite (nonvenomous) of right wrist, initial encounter; W57.XXXA Bitten or stung by nonvenomous insect and other nonvenomous arthropods, initial encounter; M06.9 Rheumatoid arthritis, unspecified; I10 Essential (primary) hypertension
CPT/HCPCS: 96372; 99282; J1200

== ENCOUNTER 2018-12-26 19:00 | Observation (INO) | payer MEDICAID ==
[2018-12-26 19:11] VITALS: BMI 21.7
--- NOTE | 2018-12-26 19:14 | ED PDOC ---
Arrival/HPI - General Time Seen by Provider: 12/26/18 19:10 - History of Present Illness Narrative History of Present Illness (Text): 63 y/o F c PMHx hemorrhagic stroke p/w chest pain, palpitations, L eye blurry vision x 2 hours. This is the last time well. Patient states that her L eye vision was blurry as if her glasses were dirty but when she lifted her glasses, the vision remained dirty. She states that the blurry vision, chest pain, and palpitations are all still present but improved. She reports scattered rash the last few weeks for which she came to this ED. Denies dyspnea, vomiting, trauma. Past Medical History - Infectious Disease Hx of Infectious Diseases: None - Tetanus Immunization Tetanus Immunization: Unknown - Cardiac Hx Hypertension: Yes Hx Mitral Valve Prolapse: Yes - Pulmonary Hx Respiratory Disorders: Yes Hx Pneumonia: Yes (multiple times) Other/Comment: double pneumonia, pneumonia as a child, walking pneumonia, scar tissue from pneumonia - Neurological Hx Neurological Disorder: (syncope and collapse) HX Cerebrovascular Accident: Yes (09/2016 residual loss of words "sometimes") Hx Dizziness: Yes Hx Seizures: (pt uncertain) Other/Comment: 09/2016 was vomiting x 3 days got up to go to the bathroom blacked out then regained consciousness called 911 pt suffered a hemorrhagic stroke, pt suffers from chronic headaches but they have worsened ever since cva - HEENT Hx HEENT Disorder: Yes (eyeglasses denies diplopia) - Renal Hx Renal Disorder: Yes Hx Kidney Stones: Yes (left kidney stone at 21 years old.PASSES STONES) Hx Pyelonephritis: Yes - Endocrine/Metabolic Hx Endocrine Disorders: No - Hematological/Oncological Hx Blood Disorders: No - Integumentary Hx Dermatological Disorder: Yes (tatoo) - Musculoskeletal/Rheumatological Hx Musculoskeletal Disorders: Yes (scoliosis) Hx Arthritis: Yes (rheumatoid arthritis) Hx Back Pain: Yes ("bone on bone" stated pt) Hx Falls: Yes (10/10/16 cva) Hx Unsteady Gait: Yes - Gastrointestinal Hx Gastrointestinal Disorders: Yes (rectal bleeding) Hx Diverticulitis: (pt uncertain) Hx Gall Bladder Disease: Yes (gb sx and 10 stones removed) Hx Gastroesophageal Reflux: Yes Other/Comment: oral sx in october 05 teeth extracted due to gum disease - Genitourinary/Gynecological Hx Genitourinary Disorders: No - Psychiatric Hx Psychophysiologic Disorder: Yes Hx Anxiety: Yes Hx Panic Disorder: Yes Hx Substance Use: No - Surgical History Hx Cholecystectomy: Yes (and removal of 10 gallstones) Hx Orthopedic Surgery: Yes (right knee torn meniscus) - Anesthesia Hx Anesthesia: Yes Hx Anesthesia Reactions: No Hx Malignant Hyperthermia: No - Suicidal Assessment Feels Threatened In Home Enviroment: No Family/Social History Family/Social History: No Known Family HX Smoking Status: Former Smoker Hx Alcohol Use: No Hx Substance Use: No Hx Substance Use Treatment: No Allergies/Home Meds Allergies/Adverse Reactions: Allergies No Known Allergies Allergy (Verified 12/17/18 20:30) Home Medications: Home Meds Medication Instructions Recorded Confirmed Mirtazapine [Remeron] 30 mg PO BID 07/10/13 11/10/18 Acetaminophen/Butalbital/Caf 1 tab PO PRN PRN 05/10/17 11/10/18 [Fioricet] Cholecalciferol [Vitamin D 1000 IU] 50,000 units PO .WEEKLY 05/10/17 11/10/18 Review of Systems - Physician Review All systems were reviewed & negative as marked: Yes - Review of Systems Constitutional: absent: Fevers Respiratory: absent: SOB Physical Exam - Physical Exam Narrative Physical Exam (Text): gen nad head nc/at eyes perrl ent mmm neck supple chest no tenderness cv reg rate lungs cta b/l abd soft, nt back no cva tenderness skin as per HPI and previous charts extremities no edema neuro alert, motor 5/5 x 4, sensation to light touch intact, L eye lateral hemianopsia, see NIHSS. Medical Decision Making ED Course and Treatment: EKG NSR 80 bpm, no ST/T wave changes. CT shows no acute pathology, old R occipital stroke. Dr. Flowers consulted, recommends admission, will obtain MRI, not tPA candidate. NIHSS Scale ([place]) Time Performed: 19:10 - How Severe is the Stoke Baseline Level of Consciousness: 0=Alert LOC to Questions: 0=Both comments correct LOC to commands: 0=Obeys both correctly Best Gaze: 0=Normal Visual: 2=Complete hemianopia Facial: 0=Normal Motor Arm - Left: 0=No drift Motor Arm - Right: 0=No drift Motor Leg - Left: 0=No drift Motor Leg - Right: 0=No drift Limb Ataxia: 0=Absent Sensory: 0=Normal Best Language: 0=No aphasia Dysarthia: 0=Normal articulation Extinction & Inattention (Neglect): 0=Normal, no object Score: 2 Risk Level: Minor Stroke Risk rTPA Inclusion/Exclusion - Refusal of Treatment Patient Refused Treatment: No - Inclusion Criteria for Altepase All of the below criteria for inclusion were reviewed: Yes Patient is 18 years or Older: Yes The Clinical Diagnosis of Ischemic Stroke That is Causing a Potentially Disabling Neurological Deficit: Yes Time of Onset is Well Established to be Less Than 270 Minute Before Treatment Would Begin: Yes Risk/Benefit Discussed With Patient/Family Member Present: Yes - Warning to TPA With Conditions Following Conditions Weighed Against Anticipated Benefit: Yes Condition: Recent intracranial hemorrhage Disposition/Present on Arrival - Present on Arrival Any Indicators Present on Arrival: No History of DVT/PE: No History of Uncontrolled Diabetes: No Urinary Catheter: No History Surgical Site Infection Following: None - Disposition Have Diagnosis and Disposition been Completed?: Yes Diagnosis: CVA (cerebral vascular accident), Chest pain Disposition: HOSPITALIZED Disposition Time: 19:46 Patient Plan: Admission, Telemetry Condition: FAIR Discharge Instructions (ExitCare): Chest Pain (ED)
[2018-12-26] MEDS: Sodium Chloride 0.9% 1,000 ML IV SCH (19:35)
[2018-12-26 19:43] LABS: BASO # 0.01 K/mm3 (0.0-2.0); BASO % 0.1 % (0.0-3.0); EOS % 0.1 % (1.5-5.0); HEMOGLOBIN 13.6 g/dL (12.0-16.0); LYMPH # 1.4 (1.2-3.4); LYMPH % 11.2 % (22.0-35.0); MEAN CELL VOLUME 93.7 fl (80.0-105.0); MEAN CORPUSCULAR HEMOGLOBIN 30.7 pg (25.0-35.0); MEAN CORPUSCULAR HGB CONC 32.8 g/dl (31.0-37.0); MEAN PLATELET VOLUME 9.9 fl (7.0-11.0); MONO # 0.8 (0.1-0.6); MONO % 6.7 % (1.0-6.0); RBC 4.43 10^6/uL (3.5-6.1); RED CELL DISTRIBUTION WIDTH 14.1 % (11.5-14.5); WHITE BLOOD COUNT 12.5 10^3/uL (4.5-11.0)
[2018-12-26 19:52] LABS: INR 0.92; PARTIAL THROMBOPLASTIN TIME 28.2 Seconds (26.9-38.3); PROTHROMBIN TIME 10.2 SECONDS (9.4-12.5)
[2018-12-26 19:53] LABS: ALB/GLOB RATIO 1.5 (1.1-1.8); ALBUMIN 4.2 g/dL (3.0-4.8); ALT/SGPT 6 U/L (7-56); AST/SGOT 16 U/L (14-36); BLOOD UREA NITROGEN 12 mg/dL (7-21); CALCIUM 9.6 mg/dL (8.4-10.5); GFR NON-AFRICAN AMERICAN 56; HDL CHOLESTEROL 103 mg/dL (29-60)
[2018-12-26 20:04] LABS: LDL CHOLESTEROL 74 mg/dL (0-129); TROPONIN I < 0.01 ng/mL
[2018-12-26 21:07] VITALS: O2SAT 98
[2018-12-27 07:06] VITALS: RESP 18
--- NOTE | 2018-12-27 08:28 | RAD ---
HISTORY: Code Stroke COMPARISON: Chest x-ray performed 07/23/17 TECHNIQUE: Chest, one view. FINDINGS: LUNGS: Biapical pleural thickening. No focal consolidation. Please note that chest x-ray has limited sensitivity for the detection of pulmonary masses. PLEURA: No significant pleural effusion identified. No definite pneumothorax . CARDIOVASCULAR: Heart size appears within normal limits. Aortic ectasia. Faint atherosclerotic calcification present. OSSEOUS STRUCTURES: Scoliosis. Mild degenerative changes. VISUALIZED UPPER ABDOMEN: Right upper quadrant surgical clips. OTHER FINDINGS: None. IMPRESSION: Mild biapical pleural thickening. Cholecystectomy clips.
[2018-12-27] MEDS: Pantoprazole 40 mg EC Tab PO SCH ×2 (09:01→09:04)
--- NOTE | 2018-12-27 09:26 | CT ---
Date of service: 12/26/2018 PROCEDURE: CT HEAD WITHOUT CONTRAST. HISTORY: Code Stroke COMPARISON: 07/23/2017 TECHNIQUE: Axial computed tomography images were obtained through the head/brain without intravenous contrast. Radiation dose: Total exam DLP = 851.84 mGy-cm. This CT exam was performed using one or more of the following dose reduction techniques: Automated exposure control, adjustment of the mA and/or kV according to patient size, and/or use of iterative reconstruction technique. FINDINGS: HEMORRHAGE: No intracranial hemorrhage. BRAIN: No mass effect or edema. There is focal encephalomalacia in the right occipital lobe. This is unchanged. There are no acute findings. VENTRICLES: Unremarkable. No hydrocephalus. CALVARIUM: Unremarkable. PARANASAL SINUSES: Unremarkable as visualized. No significant inflammatory changes. MASTOID AIR CELLS: Unremarkable as visualized. No inflammatory changes. OTHER FINDINGS: The report concurs with the preliminary [facility] report IMPRESSION: No acute intracranial findings
--- NOTE | 2018-12-27 09:43 | CP.PCM.CON ---
History of Present Illness - History of Present Illness History of Present Illness: Armando Block DO, PGY-2: Neurology Consult Note for Dr. Flowers requested by Dr. Pino for code stroke 63 year old female with a past medical history of Past Patient History - Infectious Disease Hx of Infectious Diseases: None - Tetanus Immunizations Tetanus Immunization: Unknown - Past Social History Smoking Status: Former Smoker - CARDIAC Hx Cardiac Disorders: Yes Hx Hypertension: Yes - PULMONARY Hx Respiratory Disorders: No - NEUROLOGICAL Hx Neurological Disorder: No - HEENT Hx HEENT Problems: Yes (eyeglasses denies diplopia) - RENAL Hx Chronic Kidney Disease: No - ENDOCRINE/METABOLIC Hx Endocrine Disorders: No - HEMATOLOGICAL/ONCOLOGICAL Hx Blood Disorders: No - INTEGUMENTARY Hx Dermatological Problems: No - MUSCULOSKELETAL/RHEUMATOLOGICAL Hx Musculoskeletal Disorders: No Hx Falls: Yes - GASTROINTESTINAL Hx Gastrointestinal Disorders: No - GENITOURINARY/GYNECOLOGICAL Hx Genitourinary Disorders: No - PSYCHIATRIC Hx Psychophysiologic Disorder: No - SURGICAL HISTORY Hx Surgeries: No - ANESTHESIA Hx Anesthesia: Yes Hx Anesthesia Reactions: No Hx Malignant Hyperthermia: No Meds Allergies/Adverse Reactions: Allergies Allergy/AdvReac Type Severity Reaction Status Date / Time No Known Allergies Allergy Verified 12/26/18 21:44 - Medications Medications: Current Medications Amlodipine Besylate (Norvasc) 2.5 mg PO DAILY PAO Atorvastatin Calcium (Lipitor) 20 mg PO HS PAO Clonazepam (Klonopin) 0.5 mg PO TID PRN; Protocol PRN Reason: Anxiety Hydrocortisone Valerate (Westcort) 0 gm EXT BID PAO Last Admin: 12/27/18 09:00 Dose: 1 applic Sodium Chloride (Sodium Chloride 0.9%) 1,000 mls @ 100 mls/hr IV .Q10H PAO Last Admin: 12/26/18 19:35 Dose: 100 mls/hr Levetiracetam (Keppra) 500 mg PO BID PAO Pantoprazole Sodium (Protonix Ec Tab) 40 mg PO DAILY PAO Last Admin: 12/27/18 09:04 Dose: Not Given Quetiapine Fumarate (Seroquel) 50 mg PO DAILY [facility]; Protocol Results - Vital Signs Recent Vital Signs: Last Vital Signs Temp 97.9 F 12/27/18 06:00 Pulse 56 L 12/27/18 06:00 Resp 18 12/27/18 06:00 BP 143/78 12/27/18 06:00 Pulse Ox 98 12/26/18 21:39 - Labs Result Diagrams: 12/26/18 19:39 12/26/18 19:39 Labs: Laboratory Results - last 24 hr 12/26/18 12/26/18 12/26/18 19:07 19:39 19:39 WBC 12.5 H RBC 4.43 Hgb 13.6 Hct 41.5 MCV 93.7 MCH 30.7 MCHC 32.8 RDW 14.1 Plt Count 355 MPV 9.9 Neut % (Auto) 81.9 H Lymph % (Auto) 11.2 L [place] % (Auto) 6.7 H Eos % (Auto) 0.1 L Baso % (Auto) 0.1 Lymph # (Auto) 1.4 [place] # (Auto) 0.8 H Eos # (Auto) 0.0 Baso # (Auto) 0.01 Absolute Neuts (auto) 10.22 H PT 10.2 INR 0.92 APTT 28.2 Sodium Potassium Chloride Carbon Dioxide Anion Gap BUN Creatinine Est GFR ( Amer) Est GFR (Non-Af Amer) POC Glucose (mg/dL) 127 H Random Glucose Calcium Total Bilirubin AST ALT Alkaline Phosphatase Troponin I Total Protein Albumin Globulin Albumin/Globulin Ratio Triglycerides Cholesterol LDL Cholesterol Direct HDL Cholesterol Blood Type Antibody Screen BBK History Checked 12/26/18 12/26/18 12/26/18 19:39 19:39 23:08 WBC RBC Hgb Hct MCV MCH MCHC RDW Plt Count MPV Neut % (Auto) Lymph % (Auto) [place] % (Auto) Eos % (Auto) Baso % (Auto) Lymph # (Auto) [place] # (Auto) Eos # (Auto) Baso # (Auto) Absolute Neuts (auto) PT INR APTT Sodium 143 Potassium 3.9 Chloride 109 H Carbon Dioxide 27 Anion Gap 11 BUN 12 Creatinine 1.0 Est GFR ( Amer) > 60 Est GFR (Non-Af Amer) 56 POC Glucose (mg/dL) 113 H Random Glucose 82 Calcium 9.6 Total Bilirubin 0.3 AST 16 ALT 6 L Alkaline Phosphatase 73 Troponin I < 0.01 Total Protein 7.1 Albumin 4.2 Globulin 2.9 Albumin/Globulin Ratio 1.5 Triglycerides 73 Cholesterol 195 LDL Cholesterol Direct 74 HDL Cholesterol 103 H Blood Type AB POSITIVE Antibody Screen Negative BBK History Checked Patient has bt
[2018-12-27] MEDS ORDERED: Hydrocortisone Val 0.2% Cr 15 GM TUBE EXT SCH (10:00)
--- NOTE | 2018-12-27 10:52 | MRI ---
Date of service: 12/27/2018 PROCEDURE: MRI BRAIN WITHOUT CONTRAST HISTORY: r/o acute stroke COMPARISON: 01/29/2018 TECHNIQUE: Multiplanar, multisequence MR images of the brain were obtained without intravenous contrast enhancement. FINDINGS: HEMORRHAGE: None DWI: No evidence of an acute or early subacute infarction. BRAIN PARENCHYMA: No mass effect or edema. There is chronic encephalomalacia in the right occipital lobe measuring 22 mm in diameter. There is hemosiderin deposition in the periphery of this area consistent with a chronic hemorrhagic infarct. VENTRICLES: Unremarkable. No hydrocephalus. CRANIUM: Unremarkable. ORBITS: Grossly unremarkable. PARANASAL SINUSES/MASTOIDS: Clear VASCULAR SYSTEM: Skull base flow voids intact. OTHER FINDINGS: None. IMPRESSION: No acute intracranial findings
[2018-12-27] MEDS: Sodium Chloride 0.9% 1,000 ML IV SCH (12:40)
[2018-12-27 12:59] VITALS: BP 137/73; PULSE 55; TEMP 98.2
--- NOTE | 2018-12-27 16:19 | CARD ---
APPROVED REPORT Date of service: 12/26/2018 EKG Measurement Heart [id number] <Conclusion> Normal sinus rhythm Possible septal infarct, age undetermined Abnormal ECG
--- NOTE | 2018-12-27 18:31 | HP ---
DATE OF EXAM: 12/27/2018 HISTORY OF PRESENT ILLNESS: A 63-year-old white female with history of CVA in the past, history of hypertension and migraine headaches. The patient also has a recent approximately 6 to 8-week course of a maculopapular erythematous rash that has not responded to steroids or antipruritic medications. The patient has not seen any gluten settling tender at that point. The patient did came to the emergency room complaining of difficulty in vision in her left eye. The patient was found on examination in the ER to have a left peripheral field cut deformity. The patient otherwise neurologically was stable. She had a CT in the emergency room, which was negative the patient admitted with MRI to follow. The patient also has a history of anxiety disorder and mild hypertension and mild COPD, he is a former smoker. REVIEW OF SYSTEMS: CONSTITUTIONAL: Positive only for visual field cut. The patient denies any numbness, loss of strength in the upper or lower extremities or any severe headache. The patient does complain of some palpitations, had been taking Zyrtec. RESPIRATORY: Positive for cough, nonproductive. No hemoptysis. No shortness of breath. GASTROINTESTINAL: Negative for nausea, vomiting or diarrhea. INTEGUMENT: Positive for maculopapular pruritic rash covering most of the body on and off at different times. PHYSICAL EXAMINATION: GENERAL: Shows a well-developed, well-nourished white female, in no apparent distress the following morning. NEUROLOGICAL: Visual examination is normal this morning. Speech is clear and fluent. Cranial nerves II through XII were intact. Pupils are equal and reactive to light and accommodation. Extraocular muscles are intact. Strength and sensation in the upper and lower extremities are within normal limits. Babinski are downgoing bilaterally. Reflexes are brisk bilaterally 2+ and equal. CHEST: Clear to auscultation. HEART: Regular sinus rhythm. No S3 or murmurs. ABDOMEN: Benign. IMPRESSION: A 63-year-old white female with a history of cerebrovascular accident in the past, presenting with a field cut rule out recurrent cerebrovascular accident, rule out transient ischemic attack, rule out migraine variant. The patient will have an MRI and follow as ordered. Jerald Andersen MD [facility] # [id number]
== END 2018-12-27 14:27 | disposition home or self-care (01) ==
LOC: ED 19:00 → INTOOBSV 20:17 → ERH 20:17 → 2RNO 21:34
PROVIDERS: ADMIT Internal Medicine; ATTEND Internal Medicine
DX: G43.909 Migraine, unspecified, not intractable, without status migrainosus (principal); I10 Essential (primary) hypertension; M06.9 Rheumatoid arthritis, unspecified; Z86.73 Personal history of transient ischemic attack (TIA), and cerebral infarction without residual deficits; Z87.01 Personal history of pneumonia (recurrent); Z87.891 Personal history of nicotine dependence; Z87.442 Personal history of urinary calculi
CPT/HCPCS: 70450; 70551; 71045; 80053; 80061; 82948; 83036; 84484; 85025; 85610; 85730; 86850; 86900; 93005; 99285; G0378; J7030

== ENCOUNTER 2019-01-21 15:58 | Emergency (ER) | payer MEDICAID ==
[2019-01-21 16:07] VITALS: RESP 18; BMI 20.9
[2019-01-21] MEDS: Amoxicillin-Clav 875-125 mg Tab PO STA (18:29)
--- NOTE | 2019-01-21 19:14 | ED PDOC ---
Arrival/HPI - General Chief Complaint: ENT Problem Time Seen by Provider: 01/21/19 17:50 Historian: Patient - History of Present Illness Narrative History of Present Illness (Text): 63 y/o female with PMH of hemorrhagic stroke presents to the ED c/o headache and right ear pain x 2 days. Pt states that 2 days ago she felt an insect enter her ear and since that time she has been experiencing pain to that ear. She placed peroxide and essential oils in the ear without relief. Has been taking tylenol for pain with mild relief. States the pain was so severe last night she could not sleep. Associated anxiety, nausea. Denies fever, chills, hearing loss, dizziness, extremity numbness/wekaness/paresthesias, ear drainage, vision changes, or any other associated symptoms. Past Medical History - Provider Review Nursing Documentation Reviewed: Yes - Infectious Disease Hx of Infectious Diseases: None - Tetanus Immunization Tetanus Immunization: Unknown - Cardiac Hx Cardiac Disorders: Yes Hx Hypertension: Yes - Pulmonary Hx Respiratory Disorders: No - Neurological Hx Neurological Disorder: No - HEENT Hx HEENT Disorder: Yes (eyeglasses denies diplopia) - Renal Hx Renal Disorder: No - Endocrine/Metabolic Hx Endocrine Disorders: No - Hematological/Oncological Hx Blood Disorders: No - Integumentary Hx Dermatological Disorder: No - Musculoskeletal/Rheumatological Hx Musculoskeletal Disorders: No Hx Falls: Yes - Gastrointestinal Hx Gastrointestinal Disorders: No - Genitourinary/Gynecological Hx Genitourinary Disorders: No - Psychiatric Hx Psychophysiologic Disorder: No Hx Substance Use: No - Surgical History Hx Cholecystectomy: Yes (and removal of 10 gallstones) Hx Orthopedic Surgery: Yes (right knee torn meniscus) - Anesthesia Hx Anesthesia: Yes Hx Anesthesia Reactions: No Hx Malignant Hyperthermia: No - Suicidal Assessment Feels Threatened In Home Enviroment: No Family/Social History - Physician Review Nursing Documentation Reviewed: Yes Family/Social History: No Known Family HX Smoking Status: Former Smoker Hx Alcohol Use: No Hx Substance Use: No Hx Substance Use Treatment: No Allergies/Home Meds Allergies/Adverse Reactions: Allergies No Known Allergies Allergy (Verified 12/26/18 21:44) Home Medications: Home Meds Medication Instructions Recorded Confirmed Mirtazapine [Remeron] 30 mg PO BID 07/10/13 11/10/18 Acetaminophen/Butalbital/Caf 1 tab PO PRN PRN 05/10/17 11/10/18 [Fioricet] Cholecalciferol [Vitamin D 1000 IU] 50,000 units PO .WEEKLY 05/10/17 11/10/18 Review of Systems - Review of Systems Constitutional: Normal. absent: Fevers Eyes: Normal. absent: Vision Changes ENT: Other (right ear pain) Respiratory: Normal. absent: SOB, Cough Cardiovascular: Normal. absent: Chest Pain, Palpitations Gastrointestinal: Nausea. absent: Abdominal Pain, Vomiting Musculoskeletal: Normal. absent: Back Pain, Neck Pain Skin: Normal. absent: Rash Neurological: Headache. absent: Dizziness, Focal Weakness, Gait Changes, Facial Droop, Disequilibrium Psychiatric: Anxiety Physical Exam Vital Signs Reviewed: Yes Vital Signs Temp Pulse Resp BP Pulse Ox 01/21/19 16:05 98.2 F 95 H 18 119/74 95 Temperature: Afebrile Blood Pressure: Normal Pulse: Regular Respiratory Rate: Normal Appearance: Positive for: Well-Appearing, Non-Toxic, Comfortable Pain Distress: None Mental Status: Positive for: Alert and Oriented X 3 - Systems Exam Head: Present: Atraumatic, Normocephalic Pupils: Present: PERRL Extroacular Muscles: Present: EOMI Conjunctiva: Present: Normal Ears: Present: Other (Right: Erythema to canal and TM, no visualized insect or foreign body, no visualized TM perforation Left: Normal NO mastoid tenderness or bogginess bilaterally) Mouth: Present: Moist Mucous Membranes Neck: Present: Normal Range of Motion Respiratory/Chest: Present: Clear to Auscultation, Good Air Exchange. No: Respiratory Distress, Accessory Muscle Use Cardiovascular: Present: Regular Rate and Rhythm, Normal S1, S2. No: Murmurs Abdomen: No: Tenderness, Distention, Peritoneal Signs Back: Present: Normal Inspection Upper Extremity: Present: Normal Inspection. No: Cyanosis, Edema Lower Extremity: Present: Normal Inspection. No: Edema Neurological: Present: GCS=15, CN II-XII Intact, Speech Normal Skin: Present: Warm, Dry, Normal Color. No: Rashes Psychiatric: Present: Alert, Oriented x 3, Normal Insight, Normal Concentration Medical Decision Making ED Course and Treatment: Initial Plan: * CT Head * Tylenol * Augmentin Given patients PMH and c/o headache with associated nausea, will CT head to r/o hemorrhage. Pt with no focal neurological deficits, no vomiting, and no hearing loss/vision changes. CT Head unremarkable for acute hemorrhage Pt reports improvement in pain with medication Advised PMD and ENT followup Diagnostic testing results and plan of care discussed with patient. Strict instructions given regarding prescription use, importance of followup, and signs/symptoms to return to ER including hearing loss, tinnitus, vertigo, vomiting, vision changes, or any other new/worsening symptoms. Pt verbalized understanding of discussion. Patient is A&Ox3, ambulating with steady gait, with vital signs stable for discharge. - RAD Interpretation Narrative RAD Interpretations (Text): 19:[address]: FINDINGS: BRAIN: No acute intraparenchymal hemorrhage. No mass lesion. No CT evidence for acute territorial infarct. No midline shift or extra-axial collections. There is an unchanged old right parietal lobe infarct VENTRICLES: No hydrocephalus. ORBITS: The orbits are unremarkable. SINUSES AND MASTOIDS: The paranasal sinuses and mastoid air cells are clear. BONES: No fracture. SOFT TISSUES: Unremarkable. IMPRESSION: No acute intracranial abnormality. Electronically signed on January 21, 2019 7:05:09 PM EDT by: Graeme Rodriguez M.D. Certified by [employer] Trained MRI Subspecialist Radiology Orders: 01/21/19 18:19 HEAD W/O CONTRAST [CT] Stat Risk Developer: Radiologist - Medication Orders Current Medication Orders: Discontinued Medications Acetaminophen (Tylenol 325mg Tab) 975 mg PO STAT STA Stop: 01/21/19 18:21 Last Admin: 01/21/19 18:29 Dose: 975 mg Amoxicillin/Clavulanate Potassium (Augmentin 875 Mg-125 Mg Tab) 1 tab PO STAT STA; Protocol Stop: 01/21/19 18:11 Last Admin: 01/21/19 18:29 Dose: 1 tab Disposition/Present on Arrival - Present on Arrival Any Indicators Present on Arrival: No History of DVT/PE: Yes History of Uncontrolled Diabetes: No Urinary Catheter: No History of Decub. Ulcer: No History Surgical Site Infection Following: None - Disposition Have Diagnosis and Disposition been Completed?: Yes Diagnosis: Ear pain, right Disposition: HOME/ ROUTINE Disposition Time: 19:07 Patient Plan: Discharge Condition: STABLE Discharge Instructions (ExitCare): Outer Ear Infection, Ear Infections (Otitis Media) (DC) Additional Instructions: Augmentin every 12 hours for 7 days Ear drops once daily for 7 days Zyrtec daily Followup with ENT within 2 days Followup with primary doctor within 2 days Return to ER with any new/worsening symptoms Prescriptions: Amoxicillin/Clavulanate [Augmentin 875 MG-125 MG] 1 tab PO Q12 #14 tab Cetirizine HCl [Zyrtec] 10 mg PO DAILY #30 capsule Ofloxacin Otic 0.3% [Floxin 0.3% Otic Soln] 10 drop AD DAILY 7 Days #1 bottle Referrals: Jerald Andersen MD [Family Provider] - Follow up with primary Jhony Mix DO [Staff Provider] - Follow up with primary Forms: [facility] (Macedonian), WORK NOTE
[2019-01-21 19:41] VITALS: BP 112/68; PULSE 90; TEMP 98; O2SAT 96
--- NOTE | 2019-01-22 09:40 | CT ---
Date of service: 01/21/2019 PROCEDURE: CT HEAD WITHOUT CONTRAST. HISTORY: headache, right sided. h/o hemorrhagic stroke COMPARISON: Unenhanced head CT 12/26/2018. TECHNIQUE: Axial computed tomography images were obtained through the head/brain without intravenous contrast. Radiation dose: Total exam DLP = 880.64 mGy-cm. This CT exam was performed using one or more of the following dose reduction techniques: Automated exposure control, adjustment of the mA and/or kV according to patient size, and/or use of iterative reconstruction technique. FINDINGS: HEMORRHAGE: No intracranial hemorrhage. BRAIN: Cystic encephalomalacia is again identified involving the right parietal occipital distribution from prior hemorrhagic stroke once again. No definite interval lucency or hyperdensity throughout the gotti or white matter structures above or below or below the tentorium with normal corticomedullary differentiation preserved exclusive of this chronic infarct. Posterior fossa contents including the brainstem remain unremarkable. No suspicious extra-axial fluid collection identified. No mass effect. VENTRICLES: Unremarkable. No hydrocephalus. CALVARIUM: Unremarkable. PARANASAL SINUSES: Unremarkable as visualized. No significant inflammatory changes. MASTOID AIR CELLS: Unremarkable as visualized. No inflammatory changes. OTHER FINDINGS: None. IMPRESSION: No interval acute intracranial findings. Chronic infarct right parietal occipital lobe reiterated as compared prior CT 12/26/2018. Concordant preliminary report from [facility], 01/13/2019, 7:05 p.m..
== END 2019-01-21 19:41 | disposition home or self-care (01) ==
LOC: ED 15:58
DX: H92.01 Otalgia, right ear (principal); I10 Essential (primary) hypertension; Z87.891 Personal history of nicotine dependence